=== PATIENT | female | born 1950 | race Caucasian/White ===

== ENCOUNTER → 2016-12-11 | Outpatient (CLI) | payer MEDICARE ==
[~2016-12-11] MED LIST: RT-ALBUTEROL SULF 2.5 MG/3 ML PRE-MIX VIAL IH ONE
== END ==
LOC: RT 13:04
PROVIDERS: ATTEND Nurse Practitioner Family
DX: R06.02 Shortness of breath (principal)
CPT/HCPCS: 94060; 94640; 94726; 94729

== ENCOUNTER 2018-02-12 08:57 | Outpatient (RCR) | payer MEDICARE | END 2018-03-04 13:10 | disposition home or self-care (01) | LOC: ONC 08:57 | PROVIDERS: ATTEND Internal Medicine Hematology & Oncology | DX: D75.1 Secondary polycythemia (principal); Z87.891 Personal history of nicotine dependence; I25.10 Atherosclerotic heart disease of native coronary artery without angina pectoris; I10 Essential (primary) hypertension; R09.02 Hypoxemia; G47.33 Obstructive sleep apnea (adult) (pediatric); R06.83 Snoring; E11.9 Type 2 diabetes mellitus without complications; Z79.899 Other long term (current) drug therapy | CPT/HCPCS: 36415; 81206; 81270; 82668; 99195; 99214 ==

== ENCOUNTER 2018-05-28 13:07 | Outpatient (RCR) | payer MEDICARE ==
[2018-03-04 15:03] LABS: BASOPHILS # (AUTO) 0.2 10^3/uL (0.0-0.1); BASOPHILS % (AUTO) 2 % (0-10); EOSINOPHILS # (AUTO) 0.3 10^3/uL (0.0-0.3); EOSINOPHILS % (AUTO) 2 % (0-10); HEMATOCRIT 51 % (35-52); HEMOGLOBIN 16.4 G/DL (11.5-16.0); LYMPHOCYTES # (AUTO) 1.7 X 10^3 (1.0-4.0); LYMPHOCYTES % (AUTO) 16 % (12-44); MEAN CORPUSCULAR HEMOGLOBIN 24 PG (25-34); MEAN CORPUSCULAR HGB CONC 32 G/DL (32-36); MEAN CORPUSCULAR VOLUME 76 FL (80-99); MEAN PLATELET VOLUME 10.1 FL (7.4-10.4); MONOCYTES # (AUTO) 0.8 X 10^3 (0.0-1.0); MONOCYTES % (AUTO) 7 % (0-12); NEUTROPHILS # (AUTO) 7.9 X 10^3 (1.8-7.8); NEUTROPHILS % (AUTO) 73 % (42-75); PLATELET COUNT 393 10^3/uL (130-400); RED BLOOD COUNT 6.72 10^6/uL (4.35-5.85); RED CELL DISTRIBUTION WIDTH 21.2 % (10.0-14.5); WHITE BLOOD COUNT 10.8 10^3/uL (4.3-11.0)
[2018-03-04 15:29] LABS: BILIRUBIN,TOTAL 0.6 MG/DL (0.1-1.0); CALCIUM 9.4 MG/DL (8.5-10.1); POTASSIUM 4.8 MMOL/L (3.6-5.0); TOTAL PROTEIN 6.3 GM/DL (6.4-8.2)
[2018-04-01 14:44] LABS: BASOPHILS # (AUTO) 0.1 10^3/uL (0.0-0.1); BASOPHILS % (AUTO) 1 % (0-10); EOSINOPHILS # (AUTO) 0.2 10^3/uL (0.0-0.3); EOSINOPHILS % (AUTO) 2 % (0-10); HEMATOCRIT 52 % (35-52); HEMOGLOBIN 15.8 G/DL (11.5-16.0); LYMPHOCYTES # (AUTO) 1.8 X 10^3 (1.0-4.0); LYMPHOCYTES % (AUTO) 19 % (12-44); MEAN CORPUSCULAR HEMOGLOBIN 24 PG (25-34); MEAN CORPUSCULAR HGB CONC 31 G/DL (32-36); MEAN CORPUSCULAR VOLUME 78 FL (80-99); MEAN PLATELET VOLUME 9.9 FL (7.4-10.4); MONOCYTES # (AUTO) 0.5 X 10^3 (0.0-1.0); MONOCYTES % (AUTO) 6 % (0-12); NEUTROPHILS # (AUTO) 6.7 X 10^3 (1.8-7.8); NEUTROPHILS % (AUTO) 72 % (42-75); PLATELET COUNT 333 10^3/uL (130-400); RED BLOOD COUNT 6.63 10^6/uL (4.35-5.85); RED CELL DISTRIBUTION WIDTH 21.3 % (10.0-14.5); WHITE BLOOD COUNT 9.3 10^3/uL (4.3-11.0)
[2018-04-01 15:09] LABS: BILIRUBIN,TOTAL 0.6 MG/DL (0.1-1.0); CALCIUM 9.8 MG/DL (8.5-10.1); CREATININE SERUM 0.96 MG/DL (0.60-1.30); POTASSIUM 5.3 MMOL/L (3.6-5.0); TOTAL PROTEIN 6.3 GM/DL (6.4-8.2)
[2018-04-30 14:09] LABS: BASOPHILS # (AUTO) 0.1 10^3/uL (0.0-0.1); BASOPHILS % (AUTO) 1 % (0-10); EOSINOPHILS # (AUTO) 0.2 10^3/uL (0.0-0.3); EOSINOPHILS % (AUTO) 3 % (0-10); HEMATOCRIT 50 % (35-52); HEMOGLOBIN 15.1 G/DL (11.5-16.0); LYMPHOCYTES # (AUTO) 1.4 X 10^3 (1.0-4.0); LYMPHOCYTES % (AUTO) 18 % (12-44); MEAN CORPUSCULAR HEMOGLOBIN 25 PG (25-34); MEAN CORPUSCULAR HGB CONC 31 G/DL (32-36); MEAN CORPUSCULAR VOLUME 81 FL (80-99); MEAN PLATELET VOLUME 9.6 FL (7.4-10.4); MONOCYTES # (AUTO) 0.5 X 10^3 (0.0-1.0); MONOCYTES % (AUTO) 6 % (0-12); NEUTROPHILS # (AUTO) 5.5 X 10^3 (1.8-7.8); NEUTROPHILS % (AUTO) 72 % (42-75); PLATELET COUNT 161 10^3/uL (130-400); RED BLOOD COUNT 6.11 10^6/uL (4.35-5.85); RED CELL DISTRIBUTION WIDTH 23.7 % (10.0-14.5); WHITE BLOOD COUNT 7.7 10^3/uL (4.3-11.0)
[2018-04-30 14:28] LABS: ALANINE AMINOTRANSFERASE 21 U/L (0-55); ALKALINE PHOSPHATASE 79 U/L (40-136); BILIRUBIN,TOTAL 0.7 MG/DL (0.1-1.0); BUN/CREATININE RATIO 14; CALCIUM 9.6 MG/DL (8.5-10.1); CARBON DIOXIDE 28 MMOL/L (21-32); CHLORIDE 99 MMOL/L (98-107); CREATININE SERUM 0.85 MG/DL (0.60-1.30); GFR ESTIMATED > 60; GLUCOSE 231 MG/DL (70-105); POTASSIUM 4.5 MMOL/L (3.6-5.0); SODIUM 138 MMOL/L (135-145); TOTAL PROTEIN 6.5 GM/DL (6.4-8.2)
[2018-05-28 13:16] LABS: BASOPHILS # (AUTO) 0.1 10^3/uL (0.0-0.1); BASOPHILS % (AUTO) 1 % (0-10); EOSINOPHILS # (AUTO) 0.2 10^3/uL (0.0-0.3); EOSINOPHILS % (AUTO) 2 % (0-10); HEMATOCRIT 43 % (35-52); HEMOGLOBIN 13.2 G/DL (11.5-16.0); LYMPHOCYTES # (AUTO) 1.7 X 10^3 (1.0-4.0); LYMPHOCYTES % (AUTO) 20 % (12-44); MEAN CORPUSCULAR HEMOGLOBIN 26 PG (25-34); MEAN CORPUSCULAR HGB CONC 31 G/DL (32-36); MEAN CORPUSCULAR VOLUME 85 FL (80-99); MEAN PLATELET VOLUME 10.1 FL (7.4-10.4); MONOCYTES # (AUTO) 0.3 X 10^3 (0.0-1.0); MONOCYTES % (AUTO) 4 % (0-12); NEUTROPHILS # (AUTO) 6.1 X 10^3 (1.8-7.8); NEUTROPHILS % (AUTO) 73 % (42-75); PLATELET COUNT 422 10^3/uL (130-400); RED BLOOD COUNT 5.01 10^6/uL (4.35-5.85); RED CELL DISTRIBUTION WIDTH 22.5 % (10.0-14.5); WHITE BLOOD COUNT 8.4 10^3/uL (4.3-11.0)
[2018-05-28 13:40] LABS: ALBUMIN 3.9 GM/DL (3.2-4.5); BILIRUBIN,TOTAL 0.6 MG/DL (0.1-1.0); CALCIUM 9.3 MG/DL (8.5-10.1); CREATININE SERUM 0.97 MG/DL (0.60-1.30); POTASSIUM 4.5 MMOL/L (3.6-5.0); TOTAL PROTEIN 6.1 GM/DL (6.4-8.2)
== END 2018-06-02 | disposition home or self-care (01) ==
LOC: ONC 13:07
PROVIDERS: ATTEND Internal Medicine Hematology & Oncology
DX: D75.1 Secondary polycythemia (principal); I25.10 Atherosclerotic heart disease of native coronary artery without angina pectoris; I10 Essential (primary) hypertension; E11.9 Type 2 diabetes mellitus without complications; R09.02 Hypoxemia; G47.33 Obstructive sleep apnea (adult) (pediatric); R06.83 Snoring; Z87.891 Personal history of nicotine dependence; Z79.899 Other long term (current) drug therapy
CPT/HCPCS: 36415; 80053; 85025; 99195; 99213

== ENCOUNTER → 2018-09-02 | Outpatient (CLI) | payer MEDICARE ==
[~2018-09-02] VITALS: Ht 152.4 cm; Wt 85.7 kg
[~2018-09-02] MED LIST changes: +REGADENOSON 0.4 MG/5 ML SYR (LEXISCAN) IV ONE; -RT-ALBUTEROL SULF 2.5 MG/3 ML PRE-MIX VIAL IH ONE
[2018-09-02] MEDS: CATHETER FLUSH 10 ML SYR IV PRN ×2 (07:43→09:20)
[2018-09-02 09:18] VITALS: BP 132/97
--- NOTE | 2018-09-02 15:20 | STRESS TEST ---
DATE OF SERVICE: 09/02/2018 LEXISCAN MYOVIEW STRESS TEST REPORT REFERRING PHYSICIAN: Dr. Netta Mcmillan. Baseline heart rate is 84 and baseline blood pressure is 132/97. Baseline EKG is sinus rhythm with no ischemic changes. In summary, the patient was injected with 10.39 mCi of technetium-99 Myoview and the resting images were obtained. Then, the patient received 0.4 mg of Lexiscan followed by 29.1 mCi of technetium-99 Myoview. Throughout the test, there were no EKG changes. The resting and stress images were reviewed and compared in the short axis, horizontal long axis and vertical long axis views. Review of the images had extracardiac attenuation due to the fact that the patient was unable to keep the left arm up, which affected the quality of the imaging. There is a fixed defect involving the true apex, anteroapical and inferoapical segment with small area of eric-infarct ischemia. SSS is 21. SDS is 7. TID value is 1.08. On the gated images, the left ventricle appeared to be in normal size with normal contractility. Calculated ejection fraction is 55%. CONCLUSION: 1. The patient tolerated the Lexiscan well. 2. Extracardiac attenuation affecting the quality of the images. There is a fixed defect involving the apex, anteroapical and inferoapical segment. There is an area of ischemia in the mid anterior wall and mid inferior wall. 3. Normal left ventricular size with hypokinesia at the apex. Calculated ejection fraction is 55%. Job ID: [id number] DocumentID: [id number] Dictated Date: 09/02/2018 15:10:59 Organisational Psychologist Date: 09/02/2018 15:20:00 Dictated By: MAXWELL ECHEVERRIA MD
== END ==
LOC: RAD 07:19
PROVIDERS: ATTEND Internal Medicine Cardiovascular Disease
DX: I25.10 Atherosclerotic heart disease of native coronary artery without angina pectoris (principal); I10 Essential (primary) hypertension; G47.33 Obstructive sleep apnea (adult) (pediatric); D45 Polycythemia vera; E66.01 Morbid (severe) obesity due to excess calories; Z68.36 Body mass index [BMI] 36.0-36.9, adult
CPT/HCPCS: 78452; 93017

== ENCOUNTER 2018-09-16 08:38 | Outpatient (RCR) | payer MEDICARE ==
[2018-06-25 10:17] LABS: BASOPHILS # (AUTO) 0.1 10^3/uL (0.0-0.1); BASOPHILS % (AUTO) 1 % (0-10); EOSINOPHILS # (AUTO) 0.2 10^3/uL (0.0-0.3); EOSINOPHILS % (AUTO) 2 % (0-10); HEMATOCRIT 45 % (35-52); HEMOGLOBIN 13.5 G/DL (11.5-16.0); LYMPHOCYTES # (AUTO) 1.5 X 10^3 (1.0-4.0); LYMPHOCYTES % (AUTO) 16 % (12-44); MEAN CORPUSCULAR HEMOGLOBIN 24 PG (25-34); MEAN CORPUSCULAR HGB CONC 30 G/DL (32-36); MEAN CORPUSCULAR VOLUME 79 FL (80-99); MEAN PLATELET VOLUME 9.9 FL (7.4-10.4); MONOCYTES # (AUTO) 0.6 X 10^3 (0.0-1.0); MONOCYTES % (AUTO) 6 % (0-12); NEUTROPHILS # (AUTO) 7.1 X 10^3 (1.8-7.8); NEUTROPHILS % (AUTO) 75 % (42-75); PLATELET COUNT 461 10^3/uL (130-400); RED CELL DISTRIBUTION WIDTH 22.1 % (10.0-14.5); WHITE BLOOD COUNT 9.5 10^3/uL (4.3-11.0)
[2018-06-25 10:38] LABS: ALANINE AMINOTRANSFERASE 20 U/L (0-55); ALBUMIN 3.8 GM/DL (3.2-4.5); ALKALINE PHOSPHATASE 68 U/L (40-136); BILIRUBIN,TOTAL 0.7 MG/DL (0.1-1.0); BUN/CREATININE RATIO 16; CALCIUM 9.7 MG/DL (8.5-10.1); CARBON DIOXIDE 27 MMOL/L (21-32); CHLORIDE 107 MMOL/L (98-107); GFR ESTIMATED > 60; GLUCOSE 219 MG/DL (70-105); SODIUM 146 MMOL/L (135-145); TOTAL PROTEIN 6.2 GM/DL (6.4-8.2)
[2018-07-23 09:34] LABS: BASOPHILS # (AUTO) 0.1 10^3/uL (0.0-0.1); BASOPHILS % (AUTO) 1 % (0-10); EOSINOPHILS # (AUTO) 0.3 10^3/uL (0.0-0.3); EOSINOPHILS % (AUTO) 3 % (0-10); HEMATOCRIT 48 % (35-52); HEMOGLOBIN 13.8 G/DL (11.5-16.0); LYMPHOCYTES # (AUTO) 1.7 X 10^3 (1.0-4.0); LYMPHOCYTES % (AUTO) 16 % (12-44); MEAN CORPUSCULAR HEMOGLOBIN 21 PG (25-34); MEAN CORPUSCULAR HGB CONC 29 G/DL (32-36); MEAN CORPUSCULAR VOLUME 72 FL (80-99); MONOCYTES # (AUTO) 0.7 X 10^3 (0.0-1.0); MONOCYTES % (AUTO) 6 % (0-12); NEUTROPHILS # (AUTO) 7.8 X 10^3 (1.8-7.8); NEUTROPHILS % (AUTO) 74 % (42-75); PLATELET COUNT 520 10^3/uL (130-400); RED CELL DISTRIBUTION WIDTH 23.4 % (10.0-14.5); WHITE BLOOD COUNT 10.6 10^3/uL (4.3-11.0)
[2018-08-19 10:10] LABS: BASOPHILS # (AUTO) 0.2 10^3/uL (0.0-0.1); BASOPHILS % (AUTO) 1 % (0-10); EOSINOPHILS # (AUTO) 0.3 10^3/uL (0.0-0.3); EOSINOPHILS % (AUTO) 3 % (0-10); HEMATOCRIT 46 % (35-52); HEMOGLOBIN 13.4 G/DL (11.5-16.0); LYMPHOCYTES # (AUTO) 1.6 X 10^3 (1.0-4.0); LYMPHOCYTES % (AUTO) 14 % (12-44); MEAN CORPUSCULAR HEMOGLOBIN 20 PG (25-34); MEAN CORPUSCULAR HGB CONC 30 G/DL (32-36); MEAN CORPUSCULAR VOLUME 68 FL (80-99); MEAN PLATELET VOLUME 10.1 FL (7.4-10.4); MONOCYTES # (AUTO) 0.5 X 10^3 (0.0-1.0); MONOCYTES % (AUTO) 5 % (0-12); NEUTROPHILS % (AUTO) 77 % (42-75); PLATELET COUNT 543 10^3/uL (130-400); RED CELL DISTRIBUTION WIDTH 22.5 % (10.0-14.5); WHITE BLOOD COUNT 11.6 10^3/uL (4.3-11.0)
[2018-08-19 10:25] LABS: ALANINE AMINOTRANSFERASE 17 U/L (0-55); ALKALINE PHOSPHATASE 94 U/L (40-136); BILIRUBIN,TOTAL 0.7 MG/DL (0.1-1.0); BUN/CREATININE RATIO 15; CALCIUM 10.3 MG/DL (8.5-10.1); CARBON DIOXIDE 31 MMOL/L (21-32); CHLORIDE 104 MMOL/L (98-107); CREATININE SERUM 0.92 MG/DL (0.60-1.30); GFR ESTIMATED > 60; GLUCOSE 320 MG/DL (70-105); POTASSIUM 5.1 MMOL/L (3.6-5.0); SODIUM 142 MMOL/L (135-145); TOTAL PROTEIN 6.3 GM/DL (6.4-8.2)
[2018-09-16 09:07] LABS: BASOPHILS # (AUTO) 0.2 10^3/uL (0.0-0.1); BASOPHILS % (AUTO) 1 % (0-10); EOSINOPHILS # (AUTO) 0.3 10^3/uL (0.0-0.3); EOSINOPHILS % (AUTO) 2 % (0-10); HEMATOCRIT 45 % (35-52); HEMOGLOBIN 12.7 G/DL (11.5-16.0); LYMPHOCYTES # (AUTO) 1.7 X 10^3 (1.0-4.0); LYMPHOCYTES % (AUTO) 14 % (12-44); MEAN CORPUSCULAR HEMOGLOBIN 18 PG (25-34); MEAN CORPUSCULAR HGB CONC 28 G/DL (32-36); MEAN CORPUSCULAR VOLUME 64 FL (80-99); MEAN PLATELET VOLUME 9.9 FL (7.4-10.4); MONOCYTES # (AUTO) 0.7 X 10^3 (0.0-1.0); MONOCYTES % (AUTO) 6 % (0-12); NEUTROPHILS # (AUTO) 9.6 X 10^3 (1.8-7.8); NEUTROPHILS % (AUTO) 77 % (42-75); PLATELET COUNT 604 10^3/uL (130-400); RED CELL DISTRIBUTION WIDTH 22.3 % (10.0-14.5); WHITE BLOOD COUNT 12.5 10^3/uL (4.3-11.0)
[2018-09-23] MEDS ORDERED: ATOR40TA70 PO ×2 (07:58)
[2018-09-23] MEDS ORDERED: GABA-488 PO ×2 (07:58)
[2018-09-23] MEDS ORDERED: ACET325T49 PO ×2 (07:58)
[2018-09-23] MEDS ORDERED: LORA10TA76 PO ×2 (07:58)
[2018-09-23] MEDS ORDERED: ROPI0.5T PO ×2 (07:58)
[2018-09-23] MEDS ORDERED: [UNRECOGNIZED DRUG - OTHER] PO ×2 (07:58)
[2018-09-23] MEDS ORDERED: MULT-178 PO ×2 (07:58)
[2018-09-23] MEDS ORDERED: LOSA1TAB3 PO ×2 (07:58)
[2018-09-23] MEDS ORDERED: OMG1KC PO ×2 (07:58)
[2018-09-23] MEDS ORDERED: METF-397 PO ×4 (07:58)
[2018-09-23] MEDS ORDERED: ASPI-586 PO ×2 (07:58)
[2018-09-23] MEDS ORDERED: INSU100I14 SQ ×2 (07:58)
[2018-09-23] MEDS ORDERED: ISOS120T9 PO ×2 (07:58)
[2018-09-23] MEDS ORDERED: INSU100V6 SQ ×2 (07:58)
[2018-09-24] MEDS ORDERED: TICA90TA PO ×2 (07:38)
== END 2018-09-23 | disposition home or self-care (01) ==
LOC: ONC 08:38
PROVIDERS: ATTEND Internal Medicine Hematology & Oncology
DX: D75.1 Secondary polycythemia (principal); Z87.891 Personal history of nicotine dependence; I25.10 Atherosclerotic heart disease of native coronary artery without angina pectoris; I10 Essential (primary) hypertension; R09.02 Hypoxemia; G47.33 Obstructive sleep apnea (adult) (pediatric); R06.83 Snoring; E11.9 Type 2 diabetes mellitus without complications; Z79.899 Other long term (current) drug therapy
CPT/HCPCS: 36415; 80053; 85025; 99195; 99213

== ENCOUNTER 2018-09-23 06:54 | Day surgery (SDC) | payer MEDICARE ==
[~2018-09-23] VITALS: Ht 152.4 cm; Wt 89.8 kg
[2018-09-23] VITALS (23 sets, daily range): BP systolic 119–185; BP diastolic 50–124
[2018-09-23] MEDS ORDERED: HEParin (CATH LAB) 2,000 ML IV ONE (06:58)
[2018-09-23] MEDS ORDERED: LIDOCAINE 1% INJ 20 ML 20 ML VIAL ONE (06:58)
[2018-09-23] MEDS ORDERED: NS IV 1000 ML 1,000 ML ONE (06:58)
--- OUTSIDE RECORDS SUMMARY | 2018-09-23 06:59 | XMS REPORT | Continuity of Care Document ---
Author Organization Unknown Address Unknown Allergies Active Description Code Type Severity Reaction Onset Reported/Identified Relationship to Patient Clinical Status Yes ADHESIVE TAPE ADHESIVE TAPE MODERATE Yes MORPHINE MORPHINE SEVERE Yes ADHESIVE TAPE MODERATE DERMATOLOGICAL - HIV Yes MORPHINE SEVERE DERMATOLOGICAL - [place] Yes No Known Drug Allergies [id number] Drug Allergy Unknown N/A 12/11/2016 Medications Medication Packaging Start Date Stop Date Route Dosage Sig TETANUS,DIPTH,PERT ADULT INJ 0 (ADACEL SYRINGE) ml 10/19/2016 10/19/2016 ONCE&1938 ASA 81MG CHEWABLE TAB 81 MG (BABY ASPIRIN) MG 10/19/2016 10/26/2016 BID&0800,1999 GABAPENTIN CAP 300 MG (NEURONTIN) MG 10/19/2016 10/26/2016 BID&0800,1999 METFORMIN TAB 500 MG (GLUCOPHAGE) MG 10/19/2016 10/26/2016 BID&0800,1999 CARVEDILOL TAB 12.5 MG (COREG) MG 10/19/2016 10/26/2016 BID&0800,2000 MELATONIN TAB 3 MG (MELATONIN) MG 10/19/2016 10/25/2016 QHS&2100 ISOSORBIDE MONONITRATE TAB 60 MG (IMDUR) MG 10/20/2016 10/26/2016 Daily&0900 LORATADINE TAB 10 MG (CLARITIN) MG 10/20/2016 10/26/2016 Daily&0900 GLIMEPIRIDE TAB 2 MG (AMARYL) MG 10/26/2016 Daily&0900 CITALOPRAM TAB 20 MG (CELEXA) MG 10/26/2016 Daily&0900 MultiVits (Thera M Plus) (rwaczwuc-jkdr-kbxjsty) oral tablet TAB 10/20/2016 11/18/2016 Daily&0900 CALCIUM 600MG W VIT D TAB 600 MG (OSCAL/W VIT D) MG 10/20/2016 10/26/2016 Daily&0900 FENTANYL INJ 100 MCG/2CC VIAL MCG 02/05/2017 02/05/2017 ONCE&0723 NORMAL SALINE 1000CC IV BAG INJ 0.9 % (NS 1000CC IV BAG) ml 02/05/2017 02/06/2017 CONTINUOUSEVERY 0 Hour INSULIN ASPART PEN INJ 100 UNITS/CC (NOVOLOG FLEXPEN) 02/08/2017 03/09/2017 ACHS&0630,1130,1630,2100 ASA 81MG CHEWABLE TAB 81 MG (BABY ASPIRIN) MG 02/08/2017 02/14/2017 BID&0800,1999 GABAPENTIN CAP 300 MG (NEURONTIN) MG 02/08/2017 02/14/2017 TID&0800,1400,1999 METFORMIN TAB 500 MG (GLUCOPHAGE) MG 02/08/2017 02/14/2017 TID&0800,1399,1999 CARVEDILOL TAB 12.5 MG (COREG) MG 02/08/2017 02/14/2017 BID&0800,1999 ISOSORBIDE MONONITRATE TAB 60 MG (IMDUR) MG 02/08/2017 02/14/2017 Daily&0900 LORATADINE TAB 10 MG (CLARITIN) MG 02/08/2017 02/14/2017 Daily&0900 GLIMEPIRIDE TAB 2 MG (AMARYL) MG 02/14/2017 Daily&0900 CITALOPRAM TAB 20 MG (CELEXA) MG 02/14/2017 Daily&0900 MultiVits (Thera M Plus) (gnxtxwmx-jqvx-lbmcwqv) oral tablet TAB 02/08/2017 03/09/2017 Daily&0900 CALCIUM 600MG W VIT D TAB 600 MG (OSCAL/W VIT D) MG 02/08/2017 02/14/2017 Daily&0900 CEFTRIAXONE PREMIX IV BAG IV 1 GM/50CC (ROCEPHIN PREMIX IV BAG) GM 02/08/2017 02/14/2017 Daily&0900 MELATONIN TAB 3 MG (MELATONIN) MG 02/08/2017 02/14/2017 QHS&2100 ROPINIROLE TAB 0.5 MG TAB (REQUIP) MG 02/08/2017 02/14/2017 QHS&2100 NORMAL SALINE 1000CC IV BAG INJ 0.9 % (NS 1000CC IV BAG) ml 05/28/2017 06/12/2017 CONTINUOUSEVERY 0 Hour INSULIN ASPART PEN INJ 100 UNITS/CC (NOVOLOG FLEXPEN) Dose(s) 05/28/2017 05/28/2017 ONCE&1630 ASA 81MG CHEWABLE TAB 81 MG (BABY ASPIRIN) Dose(s) 05/28/2017 06/04/2017 BID&0800,2000 GABAPENTIN CAP 300 MG (NEURONTIN) Dose(s) 05/28/2017 06/04/2017 TID&0800,1400,2000 METFORMIN TAB 500 MG (GLUCOPHAGE) Dose(s) 05/28/2017 06/04/2017 TID&0800,1400,2000 CARVEDILOL TAB 12.5 MG (COREG) Dose(s) 05/28/2017 06/04/2017 BID&0800,2000 METFORMIN TAB 500 MG (GLUCOPHAGE) MG 05/28/2017 06/03/2017 Daily&2100 MELATONIN TAB 3 MG (MELATONIN) Dose(s) 05/28/2017 06/03/2017 QHS&2100 ROPINIROLE TAB 0.5 MG TAB (REQUIP) Dose(s) 05/28/2017 06/03/2017 QHS&2100 INSULIN ASPART PEN INJ 100 UNITS/CC (NOVOLOG FLEXPEN) Dose(s) 05/29/2017 06/27/2017 AC&0630,1130,1630 ISOSORBIDE MONONITRATE TAB 60 MG (IMDUR) Dose( s) 05/29/2017 06/04/2017 Daily&0900 LORATADINE TAB 10 MG (CLARITIN) Dose(s) 05/29/2017 06/04/2017 Daily&0900 LOSARTAN TAB 25 MG (COZAAR) MG 03/201806/04/2017 Daily&0900 METFORMIN TAB 500 MG (GLUCOPHAGE) Dose(s) 05/29/2017 06/04/2017 Daily&0900 GLIMEPIRIDE TAB 2 MG (AMARYL) Dose(s) 05/29/2017 06/04/2017 Daily&0900 CITALOPRAM TAB 20 MG (CELEXA) Dose(s) 05/29/2017 06/04/2017 Daily&0900 MultiVits (Thera M Plus) (qizwydzi-pbty-zocuamc) oral tablet Dose(s) 05/29/2017 06/27/2017 Daily&0900 CALCIUM 600MG W VIT D TAB 600 MG (OSCAL/W VIT D) Dose(s) 05/29/2017 06/04/2017 Daily&0900 METFORMIN TAB 500 MG (GLUCOPHAGE) MG 05/29/2017 06/04/2017 Daily&1200 GLIMEPIRIDE TAB 2 MG (AMARYL) MG 06/04/2017 QPM&1700 GLUCAGON VIAL INJ 1 MG (GLUCAGEN VIAL) MG 10/25/2017 10/25/2017 ONCE&1635 NORMAL SALINE 1000CC IV BAG INJ 0.9 % (NS 1000CC IV BAG) ml 10/25/2017 11/09/2017 CONTINUOUSEVERY 0 Hour NORMAL SALINE 500CC IV BAG INJ 0.9 % (NS 500CC IV BAG) ml 12/10/2017 12/10/2017 ONCE&1205 NORMAL SALINE 1000CC IV BAG INJ 0.9 % (NS 1000CC IV BAG) ml 12/10/2017 12/25/2017 CONTINUOUSEVERY 0 Hour METFORMIN TAB 500 MG (GLUCOPHAGE) Dose(s) 12/10/2017 12/17/2017 TID&0800,1400,2000 TRAMADOL TAB 50 MG (ULTRAM) Dose(s) 12/10/2017 12/20/2017 Q8H&0600,1400,2200 GABAPENTIN CAP 300 MG (NEURONTIN) Dose(s) 12/10/2017 12/17/2017 TID&0800,1400,2000 INSULIN ASPART PEN INJ 100 UNITS/CC (NOVOLOG FLEXPEN) 12/10/2017 12/10/2017 ONCE&1630 CARVEDILOL TAB 12.5 MG (COREG) Dose(s) 12/10/2017 12/17/2017 BID&0800,2000 ASPIRIN ENTERIC COATED TAB 81 MG (BABY ASPIRIN EC) Dose(s) 12/10/2017 12/17/2017 BID&0800,2000 ROPINIROLE TAB 1 MG (REQUIP) Dose(s) 12/10/2017 12/17/2017 BID&0800,2000 GLIMEPIRIDE TAB 2 MG (AMARYL) Dose(s) 12/10/2017 12/17/2017 BID&0800,2000 CITALOPRAM TAB 20 MG (CELEXA) Dose(s) 12/10/2017 12/16/2017 QPM&2000 SMZ/TMP DS TAB (SEPTRA DS) (Bactrim DS) Dose( s) 12/10/2017 12/17/2017 BID&0800,2000 MELATONIN TAB 3 MG (MELATONIN) Dose(s) 12/10/2017 12/16/2017 QHS&2100 INSULIN ASPART PEN INJ 100 UNITS/CC (NOVOLOG FLEXPEN) 12/10/2017 01/09/2018 ACHS&0630,1130,1630,2100 Docusate sodium 100mg oral capsule (COLACE) Dose(s) 12/11/2017 01/10/2018 PRN BID ISOSORBIDE MONONITRATE TAB 60 MG (IMDUR) Dose( s) 12/11/2017 12/17/2017 QAM&0800 METFORMIN TAB 500 MG (GLUCOPHAGE) Dose(s) 12/11/2017 12/17/2017 BID&0800,1200 TRAMADOL/APAP 37.5/325 TAB 0 (ULTRACET) Dose( s) 12/11/2017 12/21/2017 PRN TID NORMAL SALINE 1000CC IV BAG INJ 0.9 % (NS 1000CC IV BAG) ml 12/11/2017 12/26/2017 CONTINUOUSEVERY 0 Hour LORATADINE TAB 10 MG (CLARITIN) Dose(s) 12/11/2017 12/17/2017 Daily&0900 ISOSORBIDE MONONITRATE TAB 20 MG (ISMO) Dose(s ) 12/11/2017 12/17/2017 Daily&0900 LOSARTAN TAB 100 MG (COZAAR) Dose(s) 12/11/2017 12/17/2017 Daily&0900 FERROUS SULFATE TAB 325 MG (FEOSOL) Dose(s) 12/11/2017 12/17/2017 Daily&0900 MultiVits (Thera M Plus) (acrtpzdo-osza-ygwzwgf) oral tablet Dose(s) 12/11/2017 01/09/2018 Daily&0900 CALCIUM 600MG W VIT D TAB 600 MG (OSCAL/W VIT D) Dose(s) 12/11/2017 12/17/2017 Daily&0900 MILK OF GLEN LIQ ml 12/11/2017 01/10/2018 PRN Daily POLY/BACI/NEOM OINT OINT (NEOSPORIN) alonso 12/11/2017 12/18/2017 PRN TID POLY/BACI/NEOM OINT OINT (NEOSPORIN) alonso 12/11/2017 12/18/2017 BID&0800,2000 ROPINIROLE TAB 1 MG (REQUIP) Dose(s) 12/11/2017 12/17/2017 QHS&2100 METFORMIN TAB 500 MG (GLUCOPHAGE) Dose(s) 12/11/2017 12/17/2017 QHS&2100 MILK OF GLEN OKEEFE ml 12/12/2017 01/11/2018 PRN Daily NORMAL SALINE 1000CC IV BAG INJ 0.9 % (NS 1000CC IV BAG) ml 05/06/2018 05/21/2018 CONTINUOUSEVERY 0 Hour INSULIN ASPART PEN INJ 100 UNITS/CC (NOVOLOG FLEXPEN) Dose(s) 05/06/2018 05/12/2018 AC&0630,1130,1630 ACETAMINOPHEN ORAL TABLET 325mg(Tylenol) MG 05/06/2018 06/05/2018 PRN EVERY 4 Hour ACETAMINOPHEN ORAL TABLET 325mg(Tylenol) MG 05/06/2018 06/05/2018 PRN EVERY 6 Hour CEPHALEXIN CAP 250 MG (KEFLEX) Dose(s) 05/06/2018 05/15/2018 TID&0800,1400,2000 ISOSORBIDE MONONITRATE TAB 60 MG (IMDUR) Dose( s) 05/06/2018 05/12/2018 QAM&0800 CARVEDILOL TAB 25 MG (COREG) Dose(s) 05/06/2018 05/12/2018 BID&0800,2000 METFORMIN TAB 500 MG (GLUCOPHAGE) Dose(s) 05/06/2018 05/12/2018 BID&0800,2000 CARVEDILOL TAB 12.5 MG (COREG) Dose(s) 05/06/2018 05/12/2018 BID&0800,2000 GLIMEPIRIDE TAB 2 MG (AMARYL) Dose(s) 05/06/2018 05/12/2018 BID&0800,2000 TRAMADOL/APAP 37.5/325 TAB 0 (ULTRACET) Dose( s) 05/06/2018 05/16/2018 PRN TID GABAPENTIN CAP 300 MG (NEURONTIN) Dose(s) 05/06/2018 05/12/2018 TID&0800,1400,2000 LORATADINE TAB 10 MG (CLARITIN) Dose(s) 05/06/2018 05/12/2018 Daily&0900 ASA 81MG CHEWABLE TAB 81 MG (BABY ASPIRIN) Dose(s) 05/06/2018 05/12/2018 Daily&0900 METFORMIN TAB 500 MG (GLUCOPHAGE) Dose(s) 05/06/2018 05/12/2018 Daily&0900 HYDROXYUREA CAP 500 MG (HYDREA) Dose(s) 05/06/2018 05/15/2018 Daily&0900 LOSARTAN TAB 25 MG (COZAAR) Dose(s) 05/06/2018 05/12/2018 Daily&0900 MultiVits (Thera M Plus) (lufbuepf-ffno-tpzxwvw) oral tablet Dose(s) 05/06/2018 06/04/2018 Daily&0900 ACETAMINOPHEN SUPPOS SUP 650 MG (TYLENOL) MG 05/06/2018 05/13/2018 PRN Q4H METFORMIN TAB 500 MG (GLUCOPHAGE) Dose(s) 05/06/2018 05/12/2018 Daily&1200 HYDROXYUREA CAP 500 MG (HYDREA) MG 05/06/2018 05/06/2018 ONCE&1200 METFORMIN TAB 500 MG (GLUCOPHAGE) Dose(s) 05/06/2018 05/12/2018 QPM&2000 CITALOPRAM TAB 20 MG (CELEXA) Dose(s) 05/06/2018 05/12/2018 QPM&2000 CALCIUM 600MG W VIT D TAB 600 MG (OSCAL/W VIT D) Dose(s) 05/06/2018 05/12/2018 QPM&2000 ROPINIROLE TAB 1 MG (REQUIP) Dose(s) 05/06/2018 05/12/2018 QHS&2100 ROPINIROLE TAB 0.5 MG TAB (REQUIP) Dose(s) 05/06/2018 05/12/2018 QHS&2100 MELATONIN TAB 3 MG (MELATONIN) Dose(s) 05/06/2018 05/12/2018 QHS&2100 INSULIN ASPART PEN INJ 100 UNITS/CC (NOVOLOG FLEXPEN) 05/06/2018 06/05/2018 ACHS&0630,1130,1630,2100 HYDROXYUREA CAP 500 MG (HYDREA) MG 05/07/2018 05/16/2018 Daily&0900 POTASSIUM CL 40MEQ VIAL INJ 40 MEQ/20CC (KCL VIAL) MEQ 05/07/2018 05/07/2018 ONCE&1044 NORMAL SALINE 250CC IV BAG INJ 0.9 % (NS 250CC IV BAG) ml 05/07/2018 05/07/2018 ONCE&1044 MAGNESIUM OXIDE TAB 400 MG (MAG-OX) MG 05/07/2018 05/07/2018 ONCE&1115 HYDROXYUREA CAP 500 MG (HYDREA) MG 05/07/2018 05/09/2018 Daily&1200 CALMOSEPTINE OINT TUBE (RISAMINE OINT) alonso 05/07/2018 05/14/2018 PRN QID CEFTRIAXONE PREMIX IV BAG IV 1 GM/50CC (ROCEPHIN PREMIX IV BAG) GM 05/07/2018 05/07/2018 ONCE&1743 GABAPENTIN CAP 300 MG (NEURONTIN) MG 05/07/2018 05/14/2018 TID&0800,1400,2000 NORMAL SALINE 1000CC IV BAG INJ 0.9 % (NS 1000CC IV BAG) ml 05/07/2018 05/07/2018 ONCE&2127 POTASSIUM CHLORIDE TAB 20 MEQ (K-DUR) MEQ 05/08/2018 06/06/2018 BID&0800,2000 CEFTRIAXONE PREMIX IV BAG IV 1 GM/50CC (ROCEPHIN PREMIX IV BAG) GM 05/08/2018 05/14/2018 Daily&1500 CEFTRIAXONE PREMIX IV BAG IV 1 GM/50CC (ROCEPHIN PREMIX IV BAG) GM 05/08/2018 05/14/2018 Daily&1600 CEFTRIAXONE PREMIX IV BAG IV 1 GM/50CC (ROCEPHIN PREMIX IV BAG) GM 05/08/2018 05/14/2018 Daily&1500 NORMAL SALINE 1000CC IV BAG INJ 0.9 % (NS 1000CC IV BAG) ml 05/30/2018 06/14/2018 CONTINUOUSEVERY 0 Hour INSULIN ASPART PEN INJ 100 UNITS/CC (NOVOLOG FLEXPEN) UNIT 05/30/2018 06/28/2018 ACHS&0630,1130,1630,2100 ACETAMINOPHEN ORAL TABLET 325mg(Tylenol) MG 05/30/2018 06/29/2018 PRN EVERY 4 Hour CARVEDILOL TAB 12.5 MG (COREG) Dose(s) 05/30/2018 06/05/2018 BID&0800,2000 GABAPENTIN CAP 300 MG (NEURONTIN) Dose(s) 05/30/2018 06/05/2018 TID&0800,1400,2000 LORATADINE TAB 10 MG (CLARITIN) Dose(s) 05/30/2018 06/05/2018 Daily&0900 MultiVits (Thera M Plus) (bmvkbiyc-zftn-qhqokxm) oral tablet Dose(s) 05/30/2018 06/28/2018 Daily&0900 CALCIUM 600MG W VIT D TAB 600 MG (OSCAL/W VIT D) Dose(s) 05/30/2018 06/05/2018 Daily&0900 INSULIN ASPART PEN INJ 100 UNITS/CC (NOVOLOG FLEXPEN) 05/30/2018 05/30/2018 ONCE&0931 INSULIN ASPART PEN INJ 100 UNITS/CC (NOVOLOG FLEXPEN) Dose(s) 05/30/2018 05/30/2018 ONCE&0932 NORMAL SALINE 1000CC IV BAG INJ 0.9 % (NS 1000CC IV BAG) ml 05/30/2018 06/14/2018 CONTINUOUSEVERY 0 Hour HYDROXYUREA CAP 500 MG (HYDREA) MG 05/30/2018 05/30/2018 ONCE&0900 METFORMIN TAB 500 MG (GLUCOPHAGE) MG 05/30/2018 05/30/2018 ONCE&0900 INSULIN ASPART PEN INJ 100 UNITS/CC (NOVOLOG FLEXPEN) Dose(s) 05/30/2018 06/06/2018 ACHS&0630,1130,1630,2100 METFORMIN TAB 500 MG (GLUCOPHAGE) Dose(s) 05/30/2018 06/06/2018 BID&0800,1200 CEFTRIAXONE PREMIX IV BAG IV 1 GM/50CC (ROCEPHIN PREMIX IV BAG) GM 05/30/2018 06/05/2018 Daily&1400 CALMOSEPTINE OINT TUBE (RISAMINE OINT) alonso 05/30/2018 06/05/2018 BID&0800,2000 ROPINIROLE TAB 0.5 MG TAB (REQUIP) MG 05/30/2018 06/05/2018 QHS&2100 METFORMIN TAB 500 MG (GLUCOPHAGE) Dose(s) 05/30/2018 06/05/2018 QHS&2100 ASPIRIN ENTERIC COATED TAB 81 MG (BABY ASPIRIN EC) Dose(s) 05/31/2018 06/06/2018 Daily&0900 ISOSORBIDE MONONITRATE TAB 60 MG (IMDUR) Dose( s) 05/31/2018 06/06/2018 Daily&0900 ENOXAPARIN SYRINGE INJ 40 MG (LOVENOX SYRINGE) MG 06/01/2018 06/11/2018 BID&0800,2000 SIMVASTATIN TAB 80 MG (ZOCOR) MG 06/07/2018 QPM&2000 INSULIN DETEMIR PEN INJ 100 UNITS/CC (LEVEMIR FLEXPEN) UNITS 06/01/2018 06/30/2018 QHS&2100 LEVALBUTEROL LIQ 1.25 MG/3ML (XOPENEX) MG 06/02/2018 06/02/2018 ONCE&0133 ENOXAPARIN SYRINGE INJ 40 MG (LOVENOX SYRINGE) MG 06/02/2018 06/02/2018 ONCE&0133 FUROSEMIDE TAB 20 MG (LASIX) MG 06/02/2018 ONCE&0133 FUROSEMIDE VIAL INJ 20 MG (LASIX VIAL) MG 06/02/2018 06/02/2018 ONCE&0138 ENOXAPARIN SYRINGE INJ 40 MG (LOVENOX SYRINGE) MG 06/02/2018 06/11/2018 BID&0800,2000 HYDROCHLOROTHIAZIDE CAP 12.5 MG (HYDRODIURIL) MG 06/02/2018 06/08/2018 Daily&0900 LOSARTAN TAB 25 MG (COZAAR) MG 06/08/2018 Daily&0900 LEVALBUTEROL LIQ 1.25 MG/3ML (XOPENEX) MG 06/02/2018 06/02/2018 ONCE&0956 NORMAL SALINE 250CC IV BAG INJ 0.9 % (NS 250CC IV BAG) ml 06/16/2018 06/16/2018 ONCE&1538 Problems Date Dx Coded Attending Type Code Diagnosis Diagnosed By 04/17/1309 RENNY BLACKWELL MD, Ot D75.1 SECONDARY POLYCYTHEMIA 04/17/1309 RENNY BLACKWELL MD, Ot E11.9 TYPE 2 DIABETES MELLITUS WITHOUT COMPLIC 04/17/1309 RENNY BLACKWELL MD, Ot G47.33 OBSTRUCTIVE SLEEP APNEA (ADULT) (PEDIATR 04/17/1309 RENNY BLACKWELL MD, Ot I10 ESSENTIAL (PRIMARY) HYPERTENSION 04/17/1309 RENNY BLACKWELL MD, Ot I25.10 ATHSCL HEART DISEASE OF [place] CORONARY 04/17/1309 RENNY BLACKWELL MD, Ot R06.83 SNORING 04/17/1309 RENNY BLACKWELL MD, Ot R09.02 HYPOXEMIA 04/17/1309 RENNY BLACKWELL MD, Ot Z79.899 OTHER UTILITY OPERATOR YARN (CURRENT) DRUG THERAPY 04/17/1309 RENNY BLACKWELL MD, Ot Z87.891 PERSONAL HISTORY OF NICOTINE DEPENDENCE 08/26/2015 REBEL GASTON DO Ot G47.33 OBSTRUCTIVE SLEEP APNEA (ADULT) (PEDIATR 08/26/2015 ALEK GODWIN REBEL M Ot G47.61 PERIODIC LIMB MOVEMENT DISORDER 09/06/2015 YASEMIN PUGH APRN Ot G47.33 OBSTRUCTIVE SLEEP APNEA (ADULT) (PEDIATR 09/14/2015 YASEMIN PUGH APRN Ot G47.33 OBSTRUCTIVE SLEEP APNEA (ADULT) (PEDIATR 07/01/2016 Jassi Drummond 250.00 DIABETES MELLITUS WITHOUT MENTION OF COMPLICATION, TYPE II OR UNSPECIFIED TYPE, NOT STATED UNCONTROLLED 07/01/2016 Jassi Drummond 272.4 OTHER AND UNSPECIFIED HYPERLIPIDEMIA 07/01/2016 Jassi Drummond 401.0 MALIGNANT ESSENTIAL HYPERTENSION 07/01/2016 Jassi Drummond 733.6 TIETZE'S DISEASE 07/01/2016 Jassi Drummond E11.9 TYPE 2 DIABETES MELLITUS WITHOUT COMPLICATIONS 07/01/2016 Jassi Drummond E78.5 HYPERLIPIDEMIA, UNSPECIFIED 07/01/2016 Jassi Drummond I10 ESSENTIAL (PRIMARY) HYPERTENSION 07/01/2016 Jassi Drummond M94.0 CHONDROCOSTAL JUNCTION SYNDROME [TIETZE] 08/27/2016 VALDEZ CAVANAUGH 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 08/27/2016 VALDEZ CAVANAUGH 728.2 MUSCULAR WASTING AND DISUSE ATROPHY, NOT ELSEWHERE CLASSIFIED 08/27/2016 VALDEZ CAVANAUGH M24.561 CONTRACTURE, RIGHT KNEE 08/27/2016 VALDEZ CAVANAUGH M62.561 MUSCLE WASTING AND ATROPHY, NEC, RIGHT LOWER LEG 10/19/2016 Ama Suarez 890.1 OPEN WOUND OF HIP AND THIGH, COMPLICATED 10/19/2016 Ama Suarez S71.141A PUNCTURE WOUND WITH FOREIGN BODY, RIGHT THIGH, INIT ENCNTR 11/26/2016 VALDEZ CAVANAUGH 715.16 OSTEOARTHROSIS, LOCALIZED, PRIMARY, INVOLVING LOWER LEG 11/26/2016 VALDEZ CAVANAUGH M17.11 UNILATERAL PRIMARY OSTEOARTHRITIS, RIGHT KNEE 12/17/2016 YASEMIN PUGH APRN Ot R06.02 SHORTNESS OF BREATH 12/17/2016 YASEMIN PUGH APRN Ot R06.02 SHORTNESS OF BREATH 12/17/2016 YASEMIN PUGH APRN Ot R06.02 SHORTNESS OF BREATH 02/05/2017 Tomas Mistry A 228.01 HEMANGIOMA OF SKIN AND SUBCUTANEOUS TISSUE 02/05/2017 Tomas Mistry A D18.01 HEMANGIOMA OF SKIN AND SUBCUTANEOUS TISSUE 02/09/2017 Hipolito, Netta W 041.49 02/09/2017 Hipolito, Netta W 250.00 02/09/2017 Hipolito, Netta W 272.4 OTHER AND UNSPECIFIED HYPERLIPIDEMIA 02/09/2017 Hipolito, Netta W 288.60 02/09/2017 Hipolito, Netta W 401.0 MALIGNANT ESSENTIAL HYPERTENSION 02/09/2017 Hipolito, Netta W 414.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 02/09/2017 Hipolito, Netta W 477.8 ALLERGIC RHINITIS DUE TO OTHER ALLERGEN 02/09/2017 Hipolito, Netta A 599.0 02/09/2017 Hipolito, Netta W B96.20 UNSP ESCHERICHIA COLI THE CAUSE OF DISEASES CLASSD ELSWHR 02/09/2017 Hipolito, Netta W D72.829 ELEVATED WHITE BLOOD CELL COUNT, UNSPECIFIED 02/09/2017 Hipolito, Netta W E11.9 TYPE 2 DIABETES MELLITUS WITHOUT COMPLICATIONS 02/09/2017 Hipolito, Netta W E78.5 HYPERLIPIDEMIA, UNSPECIFIED 02/09/2017 Hipolito, Netta W I10 ESSENTIAL (PRIMARY) HYPERTENSION 02/09/2017 Hipolito, Netta W I25.10 ATHSCL HEART DISEASE OF [place] CORONARY ARTERY W/O ANG PCTRS 02/09/2017 Hipolito Netta W J30.2 OTHER SEASONAL ALLERGIC RHINITIS 02/09/2017 Hipolito, Netta A N39.0 URINARY TRACT INFECTION, SITE NOT SPECIFIED 02/26/2017 Hipolito, Netta W 788.1 DYSURIA 02/26/2017 Hipolito, Netta W R30.0 DYSURIA 02/26/2017 Hipolito, Netta W 788.1 DYSURIA 02/26/2017 Hipolito, Netta W R30.0 DYSURIA 02/26/2017 Hipolito, Netta W 788.1 DYSURIA 02/26/2017 Hipolito, Netta W R30.0 DYSURIA 02/27/2017 LEXY, YASEMIN E PIPE JOINTS SUPERVISOR Ot R06.02 SHORTNESS OF BREATH 03/19/2017 Hipolito, Netta W 250.00 DIABETES MELLITUS WITHOUT MENTION OF COMPLICATION, TYPE II OR UNSPECIFIED TYPE, NOT STATED UNCONTROLLED 03/19/2017 Hipolito, Netta W E11.9 TYPE 2 DIABETES MELLITUS WITHOUT COMPLICATIONS 03/19/2017 Hipolito, Netta W 250.00 DIABETES MELLITUS WITHOUT MENTION OF COMPLICATION, TYPE II OR UNSPECIFIED TYPE, NOT STATED UNCONTROLLED 03/19/2017 Hipolito, Netta W E11.9 TYPE 2 DIABETES MELLITUS WITHOUT COMPLICATIONS 05/01/2017 Hipolito, Netta W 275.09 OTHER DISORDERS OF IRON METABOLISM 05/01/2017 [facility], Netta W 729.5 PAIN IN LIMB 05/01/2017 [facility], Netta W E61.1 IRON DEFICIENCY 05/01/2017 [facility], Netta W M79.606 PAIN IN LEG, UNSPECIFIED 05/01/2017 [facility], Netta W 275.09 OTHER DISORDERS OF IRON METABOLISM 05/01/2017 [facility], Netta W 729.5 PAIN IN LIMB 05/01/2017 Hipolito, Netta W E61.1 IRON DEFICIENCY 05/01/2017 [facility], Netta W M79.606 PAIN IN LEG, UNSPECIFIED 05/28/2017 [facility], Netta W 428.0 CONGESTIVE HEART FAILURE, UNSPECIFIED 05/28/2017 [facility], Netta W I50.9 HEART FAILURE, UNSPECIFIED 05/30/2017 [facility], Netta W 250.00 05/30/2017 [facility], Netta A 276.51 05/30/2017 [facility], Netta W 278.01 MORBID OBESITY 05/30/2017 [facility], Netta W 401.0 05/30/2017 [facility], Netta W 425.4 OTHER PRIMARY CARDIOMYOPATHIES 05/30/2017 [facility], Netta W 428.0 CONGESTIVE HEART FAILURE, UNSPECIFIED 05/30/2017 [facility], Netta W 428.9 05/30/2017 [facility], Netta W 780.79 05/30/2017 [facility], Netta W 781.99 05/30/2017 Hipolito, Netta W E11.9 TYPE 2 DIABETES MELLITUS WITHOUT COMPLICATIONS 05/30/2017 [facility], Netta W E66.01 MORBID (SEVERE) OBESITY DUE TO EXCESS CALORIES 05/30/2017 [facility], Netta A E86.0 05/30/2017 [facility], Netta W I10 ESSENTIAL (PRIMARY) HYPERTENSION 05/30/2017 [facility], Netta W I42.9 CARDIOMYOPATHY, UNSPECIFIED 05/30/2017 [facility], Netta W I50.9 HEART FAILURE, UNSPECIFIED 05/30/2017 [facility], Netta W R29.6 REPEATED FALLS 05/30/2017 [facility], Netta W R53.1 WEAKNESS 05/30/2017 [facility], Netta W V15.88 PERSONAL HISTORY OF FALL 05/30/2017 [facility], Netta W Z91.81 HISTORY OF FALLING 06/19/2017 [facility], Netta W 250.00 DIABETES MELLITUS WITHOUT MENTION OF COMPLICATION, TYPE II OR UNSPECIFIED TYPE, NOT STATED UNCONTROLLED 06/19/2017 [facility], Netta W 401.0 MALIGNANT ESSENTIAL HYPERTENSION 06/19/2017 [facility], Netta W 428.9 HEART FAILURE, UNSPECIFIED 06/19/2017 [facility], Netta W 715.30 OSTEOARTHROSIS, LOCALIZED, NOT SPECIFIED WHETHER PRIMARY OR SECONDARY, INVOLVING UNSPECIFIED SITE 06/19/2017 [facility], Netta A 780.79 06/19/2017 [facility], [place] W 781.99 06/19/2017 [facility], Netta W E11.9 TYPE 2 DIABETES MELLITUS WITHOUT COMPLICATIONS 06/19/2017 [facility], Netta W I10 ESSENTIAL (PRIMARY) HYPERTENSION 06/19/2017 [facility], Netta W I50.9 HEART FAILURE, UNSPECIFIED 06/19/2017 [facility], Netta W M19.90 UNSPECIFIED OSTEOARTHRITIS, UNSPECIFIED SITE 06/19/2017 [facility], Netta W R29.6 REPEATED FALLS 06/19/2017 [facility], Netta A R53.1 WEAKNESS 09/16/2017 [place], Netta W 781.99 OTHER SYMPTOMS INVOLVING NERVOUS AND MUSCULOSKELETAL SYSTEMS 09/16/2017 [facility], Netta W R29.6 REPEATED FALLS 10/25/2017 Jassi Drummond 250.80 DIABETES MELLITUS WITH OTHER SPECIFIED MANIFESTATIONS, TYPE II OR UNSPECIFIED TYPE, NOT STATED UNCONTROLLED 10/25/2017 Jassi Drummond E11.649 TYPE 2 DIABETES MELLITUS WITH HYPOGLYCEMIA WITHOUT COMA 10/29/2017 [facility], Netta A 781.99 OTHER SYMPTOMS INVOLVING NERVOUS AND MUSCULOSKELETAL SYSTEMS 10/29/2017 [facility], Netta A R29.6 REPEATED FALLS 12/10/2017 [facility], Netta W 276.51 DEHYDRATION 12/10/2017 [facility], Netta W E86.0 DEHYDRATION 12/10/2017 Hipolito, Netta W 276.51 DEHYDRATION 12/10/2017 Hipolito, Netta W 781.99 OTHER SYMPTOMS INVOLVING NERVOUS AND MUSCULOSKELETAL SYSTEMS 12/10/2017 Hipolito, Netta W 790.29 OTHER ABNORMAL GLUCOSE 12/10/2017 Hipolito, Netta W E86.0 DEHYDRATION 12/10/2017 [facility], Netta W R29.6 REPEATED FALLS 12/10/2017 Hipol[facility], Netta W R73.9 HYPERGLYCEMIA, UNSPECIFIED 12/12/2017 [facility], Netta W 250.80 12/12/2017 [facility], Netta W 272.4 12/12/2017 [facility], Netta A 276.51 DEHYDRATION 12/12/2017 [facility], Netta W 401.0 12/12/2017 [facility], Netta W 414.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 12/12/2017 [facility], Netta W 425.4 OTHER PRIMARY CARDIOMYOPATHIES 12/12/2017 [facility], Netta W 781.99 OTHER SYMPTOMS INVOLVING NERVOUS AND MUSCULOSKELETAL SYSTEMS 12/12/2017 [facility], Netta W 790.29 OTHER ABNORMAL GLUCOSE 12/12/2017 [facility], Netta W E11.65 TYPE 2 DIABETES MELLITUS WITH HYPERGLYCEMIA 12/12/2017 [facility], Netta W E78.5 HYPERLIPIDEMIA, UNSPECIFIED 12/12/2017 [facility], Netta A E86.0 DEHYDRATION 12/12/2017 [facility], Netta W I10 ESSENTIAL (PRIMARY) HYPERTENSION 12/12/2017 [facility], Netta W I25.10 ATHSCL HEART DISEASE OF [place] CORONARY ARTERY W/O ANG PCTRS 12/12/2017 [facility], Netta W I42.9 CARDIOMYOPATHY, UNSPECIFIED 12/12/2017 [place], Netta W R29.6 REPEATED FALLS 12/12/2017 [facility], Netta W R73.9 HYPERGLYCEMIA, UNSPECIFIED 01/14/2018 YASEMIN PUGH APRN Ot R06.02 SHORTNESS OF BREATH 01/26/2018 [facility], [place]ta W 250.00 DIABETES MELLITUS WITHOUT MENTION OF COMPLICATION, TYPE II OR UNSPECIFIED TYPE, NOT STATED UNCONTROLLED 01/26/2018 [place], Netta W 401.0 MALIGNANT ESSENTIAL HYPERTENSION 01/26/2018 Netta Mcmillan W 428.9 HEART FAILURE, UNSPECIFIED 01/26/2018 Krystina Mcmillana A 682.6 01/26/2018 Netta Mcmillan W 715.30 OSTEOARTHROSIS, LOCALIZED, NOT SPECIFIED WHETHER PRIMARY OR SECONDARY, INVOLVING UNSPECIFIED SITE 01/26/2018 Netta Mcmillan W 728.87 MUSCLE WEAKNESS (GENERALIZED) 01/26/2018 Krystina Mcmillana W E11.9 TYPE 2 DIABETES MELLITUS WITHOUT COMPLICATIONS 01/26/2018 Krystina Mcmillana W I10 ESSENTIAL (PRIMARY) HYPERTENSION 01/26/2018 Netta Mcmillan W I50.9 HEART FAILURE, UNSPECIFIED 01/26/2018 Netta Mcmillan A L03.116 CELLULITIS OF LEFT LOWER LIMB 01/26/2018 Netta Mcmillan W M19.90 UNSPECIFIED OSTEOARTHRITIS, UNSPECIFIED SITE 01/26/2018 Netta Mcmillan W M62.81 MUSCLE WEAKNESS (GENERALIZED) 03/04/2018 RENNY BLACKWELL MD Ot D75.1 SECONDARY POLYCYTHEMIA 03/04/2018 RENNY BLACKWELL MD Ot E11.9 TYPE 2 DIABETES MELLITUS WITHOUT COMPLIC 03/04/2018 RENNY BLACKWELL MD Ot G47.33 OBSTRUCTIVE SLEEP APNEA (ADULT) (PEDIATR 03/04/2018 RENNY BLACKWELL MD Ot I10 ESSENTIAL (PRIMARY) HYPERTENSION 03/04/2018 RENNY BLACKWELL MD Ot I25.10 ATHSCL HEART DISEASE OF [place] CORONARY 03/04/2018 RENNY BLACKWELL MD Ot R06.83 SNORING 03/04/2018 RENNY BLACKWELL MD Ot R09.02 HYPOXEMIA 03/04/2018 RENNY BLACKWELL MD Ot Z79.899 OTHER UTILITY OPERATOR YARN (CURRENT) DRUG THERAPY 03/04/2018 RENNY BLACKWELL MD Ot Z87.891 PERSONAL HISTORY OF NICOTINE DEPENDENCE 04/08/2018 Ama Suarez W 916.0 ABRASION OR FRICTION BURN OF HIP, THIGH, LEG, AND ANKLE, WITHOUT MENTION OF INFECTION 04/08/2018 Ama Suarez A 920 CONTUSION OF FACE, SCALP, AND NECK EXCEPT EYE(S) 04/08/2018 Ama Suarez W 924.11 CONTUSION OF KNEE 04/08/2018 Ama Suarez S00.03XA CONTUSION OF SCALP, INITIAL ENCOUNTER 04/08/2018 Ama Suarez W S80.01XA CONTUSION OF RIGHT KNEE, INITIAL ENCOUNTER 04/08/2018 Ama Suarez W S80.02XA CONTUSION OF LEFT KNEE, INITIAL ENCOUNTER 04/08/2018 Ama Suarez W S80.211A ABRASION, RIGHT KNEE, INITIAL ENCOUNTER 04/08/2018 Ama Suarez W S80.212A ABRASION, LEFT KNEE, INITIAL ENCOUNTER 04/13/2018 RENNY BLACKWELL MD Ot D75.1 SECONDARY POLYCYTHEMIA 04/13/2018 RENNY BLACKWELL MD Ot E11.9 TYPE 2 DIABETES MELLITUS WITHOUT COMPLIC 04/13/2018 RENNY BLACKWELL MD Ot G47.33 OBSTRUCTIVE SLEEP APNEA (ADULT) (PEDIATR 04/13/2018 RENNY BLACKWELL MD Ot I10 ESSENTIAL (PRIMARY) HYPERTENSION 04/13/2018 RENNY BLACKWELL MD Ot I25.10 ATHSCL HEART DISEASE OF [place] CORONARY 04/13/2018 RENNY BLACKWELL MD Ot R06.83 SNORING 04/13/2018 RENNY BLACKWELL MD Ot R09.02 HYPOXEMIA 04/13/2018 RENNY BLACKWELL MD Ot Z79.899 OTHER UTILITY OPERATOR YARN (CURRENT) DRUG THERAPY 04/13/2018 RENNY BLACKWELL MD Ot Z87.891 PERSONAL HISTORY OF NICOTINE DEPENDENCE 05/06/2018 Netta Mcmillan W 781.99 OTHER SYMPTOMS INVOLVING NERVOUS AND MUSCULOSKELETAL SYSTEMS 05/06/2018 Netta Mcmillan R29.6 REPEATED FALLS 05/10/2018 Netta Mcmillan W 238.4 POLYCYTHEMIA VERA 05/10/2018 Netta Mcmillan W 250.00 05/10/2018 Netta Mcmillan W 272.4 OTHER AND UNSPECIFIED HYPERLIPIDEMIA 05/10/2018 Krystina Mcmillana W 276.8 05/10/2018 Krystina Mcmillana W 333.94 RESTLESS LEGS SYNDROME (RLS) 05/10/2018 Netta Mcmillan W 401.0 05/10/2018 Netta Mcmillan W 425.4 05/10/2018 Netta Mcmillan W 715.30 OSTEOARTHROSIS, LOCALIZED, NOT SPECIFIED WHETHER PRIMARY OR SECONDARY, INVOLVING UNSPECIFIED SITE 05/10/2018 Netta Mcmillan W 780.60 05/10/2018 Netta Mcmillan W 780.97 05/10/2018 Krystina Mcmillana W 781.99 OTHER SYMPTOMS INVOLVING NERVOUS AND MUSCULOSKELETAL SYSTEMS 05/10/2018 Hipolito, Netta W D45 POLYCYTHEMIA VERA 05/10/2018 Hipolito, Netta W E11.9 TYPE 2 DIABETES MELLITUS WITHOUT COMPLICATIONS 05/10/2018 Hipolito, Netta W E78.5 HYPERLIPIDEMIA, UNSPECIFIED 05/10/2018 Hipolito, Netta W E87.6 HYPOKALEMIA 05/10/2018 Hipolito, Netta W G25.81 RESTLESS LEGS SYNDROME 05/10/2018 Hipolito, Netta W I10 ESSENTIAL (PRIMARY) HYPERTENSION 05/10/2018 Hipolito, Netta W I42.9 CARDIOMYOPATHY, UNSPECIFIED 05/10/2018 Hipolito, Netta W M19.90 UNSPECIFIED OSTEOARTHRITIS, UNSPECIFIED SITE 05/10/2018 Hipolito, Netta W R29.6 REPEATED FALLS 05/10/2018 Hipolito, Netta W R41.82 05/10/2018 Hipolito, Netta W R50.9 FEVER, UNSPECIFIED 05/30/2018 Hipolito, Netta W 599.0 URINARY TRACT INFECTION, SITE NOT SPECIFIED 05/30/2018 Hipolito, Netta W N39.0 URINARY TRACT INFECTION, SITE NOT SPECIFIED 05/30/2018 Hipolito, Netta W 599.0 URINARY TRACT INFECTION, SITE NOT SPECIFIED 05/30/2018 Hipolito, Netta W 780.79 OTHER MALAISE AND FATIGUE 05/30/2018 Hipolito, Netta W N39.0 URINARY TRACT INFECTION, SITE NOT SPECIFIED 05/30/2018 Hipolito, Netta W P96.89 OTHER SPECIFIED CONDITIONS ORIGINATING IN THE PERIOD 05/30/2018 Hipolito, Netta W 599.0 URINARY TRACT INFECTION, SITE NOT SPECIFIED 05/30/2018 Hipolito, Netta W 780.79 OTHER MALAISE AND FATIGUE 05/30/2018 Hipolito, Netta W N39.0 URINARY TRACT INFECTION, SITE NOT SPECIFIED 05/30/2018 Hipolito, Netta W P96.89 OTHER SPECIFIED CONDITIONS ORIGINATING IN THE PERIOD 06/02/2018 RENNY BLACKWELL MD, Ot D75.1 SECONDARY POLYCYTHEMIA 06/02/2018 RENNY BLACKWELL MD Ot E11.9 TYPE 2 DIABETES MELLITUS WITHOUT COMPLIC 06/02/2018 RENNY BLACKWELL MD, Ot G47.33 OBSTRUCTIVE SLEEP APNEA (ADULT) (PEDIATR 06/02/2018 RISHI GREY, RENNY Ot I10 ESSENTIAL (PRIMARY) HYPERTENSION 06/02/2018 RENNY BLACKWELL MD Ot I25.10 ATHSCL HEART DISEASE OF [place] CORONARY 06/02/2018 RISHI GREY, RENNY Ot R06.83 SNORING 06/02/2018 RENNY BLACKWELL MD Ot R09.02 HYPOXEMIA 06/02/2018 RENNY BLACKWELL MD Ot Z79.899 OTHER JAIL (CURRENT) DRUG THERAPY 06/02/2018 RENNY BLACKWELL MD Ot Z87.891 PERSONAL HISTORY OF NICOTINE DEPENDENCE 06/03/2018 [facility], Netta W 238.4 06/03/2018 [facility], Netta W 250.00 06/03/2018 Hipolito, Netta W 333.94 RESTLESS LEGS SYNDROME (RLS) 06/03/2018 [facility], Netta W 401.0 06/03/2018 [facility], Netta W 425.4 06/03/2018 Hipolito, Netta W 599.0 URINARY TRACT INFECTION, SITE NOT SPECIFIED 06/03/2018 Hipolito, Netta W 729.5 PAIN IN LIMB 06/03/2018 [facility], Netta 780.60 06/03/2018 Hipolito, Netta W 780.79 OTHER MALAISE AND FATIGUE 06/03/2018 [facility], Netta W 791.9 06/03/2018 [facility], Netta W D45 06/03/2018 [facility], Netta W E11.9 TYPE 2 DIABETES MELLITUS WITHOUT COMPLICATIONS 06/03/2018 [facility], Netta W G25.81 RESTLESS LEGS SYNDROME 06/03/2018 Hipolito, Netta W I10 ESSENTIAL (PRIMARY) HYPERTENSION 06/03/2018 Hipolito, Netta W I42.9 CARDIOMYOPATHY, UNSPECIFIED 06/03/2018 [facility], Netta W M79.661 PAIN IN RIGHT LOWER LEG 06/03/2018 Hipolito, Netta W N39.0 URINARY TRACT INFECTION, SITE NOT SPECIFIED 06/03/2018 Hipolito, Netta W P96.89 OTHER SPECIFIED CONDITIONS ORIGINATING IN THE PERIOD 06/03/2018 Hipolito, Netta W R41.82 06/03/2018 Hipolito, Netta W R50.9 06/03/2018 [facility], Netta W R53.1 WEAKNESS 06/03/2018 Hipolito, Netta W R82.998 OTHER ABNORMAL FINDINGS IN URINE 06/03/2018 Netta Mcmillan W V58.67 LONG-TERM (CURRENT) USE OF INSULIN 06/03/2018 Netta Mcmillan W Z79.4 JAIL (CURRENT) USE OF INSULIN 06/08/2018 RENNY BLACKWELL MD, Ot D75.1 SECONDARY POLYCYTHEMIA 06/08/2018 RENNY BLACKWELL MD Ot E11.9 TYPE 2 DIABETES MELLITUS WITHOUT COMPLIC 06/08/2018 RENNY BLACKWELL MD, Ot G47.33 OBSTRUCTIVE SLEEP APNEA (ADULT) (PEDIATR 06/08/2018 RENNY BLACKWELL MD Ot I10 ESSENTIAL (PRIMARY) HYPERTENSION 06/08/2018 RENNY BLACKWELL MD Ot I25.10 ATHSCL HEART DISEASE OF [place] CORONARY 06/08/2018 RENNY BLACKWELL MD Ot R06.83 SNORING 06/08/2018 RENNY BLACKWELL MD Ot R09.02 HYPOXEMIA 06/08/2018 RENNY BLACKWELL MD, Ot Z79.899 OTHER UTILITY OPERATOR YARN (CURRENT) DRUG THERAPY 06/08/2018 RENNY BLACKWELL MD, Ot Z87.891 PERSONAL HISTORY OF NICOTINE DEPENDENCE 06/16/2018 Jassi Drummond 276.51 DEHYDRATION 06/16/2018 Jassi Drummond 458.29 OTHER IATROGENIC HYPOTENSION 06/16/2018 Jassi Drummond 995.29 UNSPECIFIED ADVERSE EFFECT OF OTHER DRUG, MEDICINAL AND BIOLOGICAL SUBSTANCE 06/16/2018 Jassi Drummond E86.0 DEHYDRATION 06/16/2018 Jassi Drummond I95.2 HYPOTENSION DUE TO DRUGS 06/16/2018 Jassi Drummond T45.1X5A ADVERSE EFFECT OF ANTINEOPLASTIC AND IMMUNOSUP DRUGS, INIT 06/26/2018 RENNY BLACKWELL MD, Ot D75.1 SECONDARY POLYCYTHEMIA 06/26/2018 RENNY BLACKWELL MD, Ot E11.9 TYPE 2 DIABETES MELLITUS WITHOUT COMPLIC 06/26/2018 RENNY BLACKWELL MD, Ot G47.33 OBSTRUCTIVE SLEEP APNEA (ADULT) (PEDIATR 06/26/2018 RENNY BLACKWELL MD Ot I10 ESSENTIAL (PRIMARY) HYPERTENSION 06/26/2018 RENNY BLACKWELL MD Ot I25.10 ATHSCL HEART DISEASE OF [place] CORONARY 06/26/2018 RENNY BLACKWELL MD Ot R06.83 SNORING 06/26/2018 RENNY BLACKWELL MD Ot R09.02 HYPOXEMIA 06/26/2018 RENNY BLACKWELL MD Ot Z79.899 OTHER JAIL (CURRENT) DRUG THERAPY 06/26/2018 RENNY BLACKWELL MD Ot Z87.891 PERSONAL HISTORY OF NICOTINE DEPENDENCE 07/03/2018 W 238.4 POLYCYTHEMIA VERA 07/03/2018 W 250.00 DIABETES MELLITUS WITHOUT MENTION OF COMPLICATION, TYPE II OR UNSPECIFIED TYPE, NOT STATED UNCONTROLLED 07/03/2018 W 333.94 RESTLESS LEGS SYNDROME (RLS) 07/03/2018 W 401.0 MALIGNANT ESSENTIAL HYPERTENSION 07/03/2018 W 715.30 OSTEOARTHROSIS, LOCALIZED, NOT SPECIFIED WHETHER PRIMARY OR SECONDARY, INVOLVING UNSPECIFIED SITE 07/03/2018 W 728.87 07/03/2018 W D45 POLYCYTHEMIA VERA 07/03/2018 W E11.9 TYPE 2 DIABETES MELLITUS WITHOUT COMPLICATIONS 07/03/2018 W G25.81 RESTLESS LEGS SYNDROME 07/03/2018 W I10 ESSENTIAL ( PRIMARY) HYPERTENSION 07/03/2018 W M19.90 UNSPECIFIED OSTEOARTHRITIS, UNSPECIFIED SITE 07/03/2018 W M62.81 MUSCLE WEAKNESS (GENERALIZED) 08/07/2018 RENNY BLACKWELL MD Ot D75.1 SECONDARY POLYCYTHEMIA 08/07/2018 RENNY BLACKWELL MD Ot E11.9 TYPE 2 DIABETES MELLITUS WITHOUT COMPLIC 08/07/2018 RENNY BLACKWELL MD Ot G47.33 OBSTRUCTIVE SLEEP APNEA (ADULT) (PEDIATR 08/07/2018 RENNY BLACKWELL MD Ot I10 ESSENTIAL (PRIMARY) HYPERTENSION 08/07/2018 RENNY BLACKWELL MD Ot I25.10 ATHSCL HEART DISEASE OF [place] CORONARY 08/07/2018 RENNY BLACKWELL MD Ot R06.83 SNORING 08/07/2018 RENNY BLACKWELL MD Ot R09.02 HYPOXEMIA 08/07/2018 RENNY BLACKWELL MD Ot Z79.899 OTHER JAIL (CURRENT) DRUG THERAPY 08/07/2018 RENNY BLACKWELL MD Ot Z87.891 PERSONAL HISTORY OF NICOTINE DEPENDENCE 09/03/2018 MAXWELL ECHEVERRIA MD Ot D45 POLYCYTHEMIA VERA 09/03/2018 MAXWELL ECHEVERRIA MD Ot E66.01 MORBID (SEVERE) OBESITY DUE TO EXCESS CA 09/03/2018 MAXWELL ECHEVERRIA MD Ot G47.33 OBSTRUCTIVE SLEEP APNEA (ADULT) (PEDIATR 09/03/2018 MAXWELL ECHEVERRIA MD Ot I10 ESSENTIAL (PRIMARY) HYPERTENSION 09/03/2018 MAXWELL ECHEVERRIA MD, Ot I25.10 ATHSCL HEART DISEASE OF [place] CORONARY 09/03/2018 MAXWELL ECHEVERRIA MD, Ot Z68.36 BODY MASS INDEX (BMI) 36.0-36.9, ADULT Procedures There is no data. Results Test Result Range CBC with Auto Diff - 07/01/16 15:28 Baso% 1.00 % 0.00-2.50 Eos 0.4 K/uL 0.0-0.7 Eos% 3.3 % 0.0-7.0 Hct 50.1 % 36.0-46.0 Hgb 15.0 g/dL 13.0-15.0 Lym 2.57 K/uL 0.60-3.40 Lym% 22.1 % 10.0-50.0 MCH 22.6 pg 27.0-31.0 MCHC 29.9 g/dL 32.0-36.0 MCV 75.6 fL 80.0-97.0 Mills% 8.9 % 0.0-12.0 MPV 9.9 fL 7.4-10.0 Dixie% 64.7 % 37.0-80.0 Plt 337 K/uL 150-400 RBC 6.63 M/uL 3.60-5.00 RDW 21.3 % 11.6-14.8 WBC 11.65 K/uL 5.00-10.00 Dixie 7.54 K/uL 2.00-6.90 Mills 1.0 K/uL 0.0-0.9 Baso 0.1 K/uL 0.0-0.2 EKG - 07/01/16 15:29 EKG Complete Peripheral Smear - 07/11/16 11:48 Peripheral smear Sent to [place] [facility] for review Microalbumin - 10/31/16 07:15 Microalb 8.0 mg/L 0.0-20.0 Hemoglobin A1C - 10/31/16 07:15 % A1C 7.50 % 5.40-6.60 AvGlu 191 mg/dL 70-110 Urine Culture - 10/31/16 07:15 PRELIM CULTURE RESULTS >100,000 Gram Negative Lactose Personnel Coordinator ELLEN / ID to Follow MEDIA PLATED Setup at 07:47 on 10/31/2016 CULTURE SOURCE void into hat Sensi - 10/31/16 07:15 FINAL CULTURE RESULTS Klebsiella pneumoniae (Isolate 1) Ampicillin/Sulbactam <=8/4 Ampicillin >16 Amoxicillin/K Clavulanate <=8/4 Ceftriaxone <=8 Ciprofloxacin <=1 Nitrofurantoin <=32 Gentamicin <=4 Levofloxacin <=2 Trimethoprim/ Sulfamethoxazole <=2/38 Tetracycline <=4 Amikacin <=16 Aztreonam <=8 Ceftazidime <=1 Ceftazidime/K Clavulanate <=0.25 Cephalothin <=8 Cefotaxime <=2 Cefotaxime/K Clavulanate <=0.5 Cefoxitin <=8 Cefazolin <=8 Cefepime <=8 Cefuroxime <=4 Ertapenem <=1 Imipenem <=4 Meropenem <=4 Piperacillin/Tazobactam <=16 Piperacillin <=16 Tigecycline <=2 Tobramycin <=4 Iron - 11/14/16 10:00 Iron 49 ug/dL 70-200 Comprehensive Metabolic Panel - 01/21/17 13:37 Albumin 4.0 g/dL 3.6-5.1 ALP 91 U/L 35-130 ALT 22 U/L 6-45 Anion Gap 16 6-14 AST 23 U/L 2-40 BUN 14 mg/dL 5-25 Calcium 9.6 mg/dL 8.3-10.4 Chloride 102 mmol/L 95-114 CO2 29 mEq/L 22-33 Creat 0.81 mg/dL 0.50-1.50 eGFR 70 mL/min/1.73m2 >59 Globulin 2.5 g/dL 2.3-3.5 Glucose 88 mg/dL 70-110 Osmo 293 280-295 Potassium 4.7 mmol/L 3.5-5.3 Sodium 142 mmol/L 134-148 TBil 0.6 mg/dL 0.2-1.2 TP 6.5 g/dL 6.0-8.3 [facility] - 02/03/17 12:55 Anion Gap 14 6-14 BUN 12 mg/dL 5-25 Calcium 9.5 mg/dL 8.3-10.4 Chloride 102 mmol/L 95-114 CO2 32 mEq/L 22-33 Creat 0.80 mg/dL 0.50-1.50 eGFR 71 mL/min/1.73m2 >59 Glucose 194 mg/dL 70-110 Osmo 300 280-295 Potassium 5.2 mmol/L 3.5-5.3 Sodium 143 mmol/L 134-148 Surgical Pathology - 02/05/17 09:46 Surg Path Sent to [place] [facility] BNP - 02/07/17 23:30 BNP 102.10 pg/ml 0.00-100.00 Urinalysis - 02/07/17 23:33 Icotest N/A Negative Urine Volume Urine Volume Sufficient (10mL) Urine Yeast No Yeast present Urine-Appearance Slightly Cloudy Clear Urine-Bacteria 3+ Urine-Bilirubin Negative Negative Urine-Blood 1+ Negative Urine-Color Yellow Colorless-Lt. Yellow Urine-Epithelial Cells 0-5/HPF Urine-Glucose Negative Negative Urine-Ketones Negative Negative Urine-Leukocytes 1+ Negative Urine-Nitrite Negative Negative Urine-Other Culture to follow Urine-pH 6.5 5-8.5 Urine-Protein Negative Negative Urine-RBC 2-5/HPF Urine-Specific [place] 1.010 1.000-1.030 Urine-WBC 2-5/HPF Urobilinogen 0.2 0.2-1.0 Urine Culture - 02/07/17 23:56 PRELIM CULTURE RESULTS >100,000 Gram Negative ELLEN / ID to Follow MEDIA PLATED Setup at 00:03 on 02/08/2017 CULTURE SOURCE void Sensi - 02/07/17 23:56 FINAL CULTURE RESULTS Escherichia coli (Isolate 1) Ampicillin/Sulbactam 16/8 Ampicillin >16 Amoxicillin/K Clavulanate <=8/4 Ceftriaxone <=8 Ciprofloxacin <=1 Nitrofurantoin <=32 Gentamicin <=4 Levofloxacin <=2 Trimethoprim/ Sulfamethoxazole <=2/38 Tetracycline <=4 Amikacin <=16 Aztreonam <=8 Ceftazidime <=1 Ceftazidime/K Clavulanate <=0.25 Cephalothin 16 Cefotaxime <=2 Cefotaxime/K Clavulanate <=0.5 Cefoxitin <=8 Cefazolin <=8 Cefepime <=8 Cefuroxime <=4 Ertapenem <=1 Imipenem <=4 Meropenem <=4 Piperacillin/Tazobactam <=16 Piperacillin >64 Tigecycline <=2 Tobramycin <=4 BMP - 02/08/17 07:00 Anion Gap 15 6-14 BUN 7 mg/dL 5-25 Calcium 9.1 mg/dL 8.3-10.4 Chloride 104 mmol/L 95-114 CO2 27 mEq/L 22-33 Creat 0.66 mg/dL 0.50-1.50 eGFR 89 mL/min/1.73m2 >59 Glucose 137 mg/dL 70-110 Osmo 293 280-295 Potassium 4.0 mmol/L 3.5-5.3 Sodium 142 mmol/L 134-148 CBC with Auto Diff - 02/09/17 06:45 Baso% 1.30 % 0.00-2.50 Eos 0.3 K/uL 0.0-0.7 Eos% 2.5 % 0.0-7.0 Hct 51.9 % 36.0-46.0 Hgb 15.9 g/dL 13.0-15.0 Lym 1.80 K/uL 0.60-3.40 Lym% 15.2 % 10.0-50.0 MCH 22.6 pg 27.0-31.0 MCHC 30.6 g/dL 32.0-36.0 MCV 73.9 fL 80.0-97.0 Mills% 8.1 % 0.0-12.0 MPV 9.6 fL 7.4-10.0 Dixie% 72.9 % 37.0-80.0 Plt 332 K/uL 150-400 RBC 7.02 M/uL 3.60-5.00 RDW 22.4 % 11.6-14.8 WBC 11.83 K/uL 5.00-10.00 Dixie 8.62 K/uL 2.00-6.90 Mills 1.0 K/uL 0.0-0.9 Baso 0.2 K/uL 0.0-0.2 Urine Culture - 02/26/17 17:54 PRELIM CULTURE RESULTS No Growth 24 hours FINAL CULTURE RESULTS No Growth 48 hours MEDIA PLATED Setup at 19:54 on 02/26/2017 CULTURE SOURCE void Microalbumin - 03/19/17 09:00 Microalb <5.0 mg/L 0.0-20.0 Comprehensive Metabolic Panel - 05/01/17 16:08 Albumin 4.0 g/dL 3.6-5.1 ALP 102 U/L 35-130 ALT 23 U/L 6-45 Anion Gap 16 6-14 AST 19 U/L 2-40 BUN 15 mg/dL 5-25 Calcium 9.7 mg/dL 8.3-10.4 Chloride 100 mmol/L 95-114 CO2 31 mEq/L 22-33 Creat 0.79 mg/dL 0.50-1.50 eGFR 72 mL/min/1.73m2 >59 Globulin 2.6 g/dL 2.3-3.5 Glucose 206 mg/dL 70-110 Osmo 299 280-295 Potassium 4.9 mmol/L 3.5-5.3 Sodium 142 mmol/L 134-148 TBil 0.5 mg/dL 0.2-1.2 TP 6.6 g/dL 6.0-8.3 Iron - 05/01/17 16:08 Iron 31 ug/dL 70-200 Magnesium - 05/01/17 16:08 Mg++ 1.8 mg/dL 1.6-2.6 Urine Culture - 05/25/17 12:15 PRELIM CULTURE RESULTS >100,000 Gram Negative - ELLEN / ID to Follow MEDIA PLATED Setup at 16:54 05/25/2017 CULTURE SOURCE URINE CULTURE Sensi - 05/25/17 12:15 FINAL CULTURE RESULTS Escherichia coli (Isolate 1) Ampicillin/Sulbactam <=8/4 Ampicillin >16 Amoxicillin/K Clavulanate <=8/4 Ceftriaxone <=8 Ciprofloxacin <=1 Nitrofurantoin <=32 Gentamicin <=4 Levofloxacin <=2 Trimethoprim/ Sulfamethoxazole <=2/38 Tetracycline <=4 Amikacin <=16 Aztreonam <=8 Ceftazidime <=1 Ceftazidime/K Clavulanate <=0.25 Cephalothin <=8 Cefotaxime <=2 Cefotaxime/K Clavulanate <=0.5 Cefoxitin <=8 Cefazolin <=8 Cefepime <=8 Cefuroxime <=4 Ertapenem <=1 Imipenem <=4 Meropenem <=4 Piperacillin/Tazobactam <=16 Piperacillin 64 Tigecycline <=2 Tobramycin <=4 Troponin I - 05/28/17 12:00 Troponin <0.020 ng/mL 0.0-0.4 Urinalysis - 05/28/17 12:45 Icotest N/A Negative Urine Volume Urine Volume Sufficient (10mL) Urine Yeast No Yeast present Urine-Appearance Clear Clear Urine-Bacteria Negative Urine-Bilirubin Negative Negative Urine-Blood Negative Negative Urine-Color Yellow Colorless-Lt. Yellow Urine-Glucose Negative Negative Urine-Ketones Negative Negative Urine-Leukocytes Negative Negative Urine-Nitrite Negative Negative Urine-Other Urine Saved if Culture Needed (48hrs from time of collection) Urine-pH 6.5 5-8.5 Urine-Protein Negative Negative Urine-RBC Negative Urine-Specific [place] 1.015 1.000-1.030 Urine-WBC Nothing Seen on Microscopic Urobilinogen 0.2 E.U./dL 0.2-1.0 BMP - 05/29/17 07:30 Anion Gap 18 6-14 BUN 13 mg/dL 5-25 Calcium 9.5 mg/dL 8.3-10.4 Chloride 105 mmol/L 95-114 CO2 21 mEq/L 22-33 Creat 0.85 mg/dL 0.50-1.50 eGFR 67 mL/min/1.73m2 >59 Glucose 183 mg/dL 70-110 Osmo 291 280-295 Potassium 4.9 mmol/L 3.5-5.3 Sodium 139 mmol/L 134-148 BMP - 08/15/17 11:38 Anion Gap 21 6-14 BUN 13 mg/dL 5-25 Calcium 9.2 mg/dL 8.3-10.4 Chloride 100 mmol/L 95-114 CO2 26 mEq/L 22-33 Creat 0.86 mg/dL 0.50-1.50 eGFR 66 mL/min/1.73m2 >59 Glucose 248 mg/dL 70-110 Osmo 301 280-295 Potassium 4.5 mmol/L 3.5-5.3 Sodium 142 mmol/L 134-148 Urine Culture - 08/15/17 11:38 GRAM STAIN Gram Positive Cocci in Clusters MEDIA PLATED Setup at 11:59 on 08/15/2017 CULTURE SOURCE hat Sensi - 08/15/17 11:38 FINAL CULTURE RESULTS Staphylococcus epidermidis (Isolate 1) Ampicillin/Sulbactam <=8/4 Ampicillin 8 Amoxicillin/K Clavulanate <=4/2 Ceftriaxone <=8 Clindamycin >4 Cefoxitin Screen N/R Ciprofloxacin <=1 Daptomycin <=0.5 Erythromycin >4 Nitrofurantoin <=32 Gentamicin <=4 Gentamicin Synergy Screen N/R Inducible Clindamycin N/R Levofloxacin <=1 Linezolid <=1 Moxifloxacin <=0.5 Oxacillin >2 Penicillin 8 Rifampin <=1 Streptomycin Synergy N/R Synercid <=0.5 Trimethoprim/ Sulfamethoxazole > Tetracycline <=4 Vancomycin 2 Urinalysis - 10/18/17 10:27 Icotest N/A Negative Urine Volume Urine Volume Sufficient (10mL) Urine Yeast No Yeast present Urine-Appearance Cloudy Clear Urine-Bacteria 4+ Urine-Bilirubin Negative Negative Urine-Blood Negative Negative Urine-Color Yellow Colorless-Lt. Yellow Urine-Glucose Negative Negative Urine-Ketones Negative Negative Urine-Leukocytes 1+ Negative Urine-Nitrite Positive Negative Urine-Other Culture to follow Urine-pH 6.0 5-8.5 Urine-Protein Negative Negative Urine-RBC Negative Urine-Specific [place] 1.015 1.000-1.030 Urine-WBC 10-20/HPF Urobilinogen 0.2 E.U./dL 0.2-1.0 Urine Culture - 10/18/17 10:27 PRELIM CULTURE RESULTS >100,000 Gram Negative ELLEN / ID to Follow CULTURE SOURCE urine Sensi - 10/18/17 10:27 FINAL CULTURE RESULTS Escherichia coli (Isolate 1) Ampicillin/Sulbactam 16/8 Ampicillin >16 Amoxicillin/K Clavulanate <=8/4 Ceftriaxone <=8 Ciprofloxacin <=1 Nitrofurantoin <=32 Gentamicin <=4 Levofloxacin <=2 Trimethoprim/ Sulfamethoxazole <= Tetracycline <=4 Amikacin <=16 Aztreonam <=8 Ceftazidime <=1 Ceftazidime/K Clavulanate <=0.25 Cephalothin >16 Cefotaxime <=2 Cefotaxime/K Clavulanate <=0.5 Cefoxitin <=8 Cefazolin <=8 Cefepime <=8 Cefuroxime <=4 Ertapenem <=1 Imipenem <=4 Meropenem <=4 Piperacillin/Tazobactam <=16 Piperacillin >64 Tigecycline <=2 Tobramycin <=4 BMP - 10/25/17 16:47 Anion Gap 21 6-14 BUN 13 mg/dL 5-25 Calcium 11.3 mg/dL 8.3-10.4 Chloride 100 mmol/L 95-114 CO2 25 mEq/L 22-33 Creat 0.85 mg/dL 0.50-1.50 eGFR 67 mL/min/1.73m2 >59 Glucose 114 mg/dL 70-110 Osmo 294 280-295 Potassium 4.4 mmol/L 3.5-5.3 Sodium 142 mmol/L 134-148 Urinalysis - 10/25/17 20:02 Icotest N/A Negative Urine Volume Urine Volume Sufficient (10mL) Urine-Appearance Clear Clear Urine-Bacteria Negative Urine-Bilirubin Negative Negative Urine-Blood Negative Negative Urine-Color Yellow Colorless-Lt. Yellow Urine-Epithelial Cells 0-5/HPF Urine-Glucose Negative Negative Urine-Ketones Negative Negative Urine-Leukocytes Trace Negative Urine-Nitrite Negative Negative Urine-Other Urine Saved if Culture Needed (48hrs from time of collection) Urine-pH 7.0 5-8.5 Urine-Protein Negative Negative Urine-RBC 0-2/HPF Urine-Specific [place] 1.015 1.000-1.030 Urine-WBC 2-5/HPF Urobilinogen 0.2 0.2-1.0 Other Culture - 11/10/17 12:20 PRELIM CULTURE RESULTS Small amount coagulase negative staphlycoccus , probable skin contaminate. FINAL CULTURE RESULTS Scant Gram Positive Mixed Lizbet including Coag Negative [id number] Skin Contaminant [id number] Further Workup done MEDIA PLATED Setup at 12:41 on 11/10/2017 Urinalysis - 12/03/17 10:15 Icotest N/A Negative Urine Volume Urine Volume Sufficient (10mL) Urine Yeast No Yeast present Urine-Appearance Clear Clear Urine-Bacteria Trace Urine-Bilirubin Negative Negative Urine-Blood Trace-lysed Negative Urine-Color Yellow Colorless-Lt. Yellow Urine-Epithelial Cells 0-5/HPF Urine-Glucose 2+ Negative Urine-Ketones Negative Negative Urine-Leukocytes Trace Negative Urine-Nitrite Negative Negative Urine-Other Urine Saved if Culture Needed (48hrs from time of collection) Urine-pH 7.0 5-8.5 Urine-Protein Negative Negative Urine-RBC 5-10/HPF Urine-Specific [place] 1.015 1.000-1.030 Urine-WBC 2-5/HPF Urobilinogen 0.2 0.2-1.0 Urine Culture - 12/03/17 10:15 PRELIM CULTURE RESULTS 20,000-50,000 Gram Negative ELLEN / ID to Follow CULTURE SOURCE clean catch Urine Culture - 12/03/17 10:15 PRELIM CULTURE RESULTS 20,000-50,000 of 2 Gram Negatives ELLEN / ID to Follow MEDIA PLATED 12.03.2017 CULTURE SOURCE void Sensi - 12/03/17 10:15 Ampicillin/Sulbactam >16/8 Ampicillin >16 Amoxicillin/K Clavulanate >16/8 Ceftriaxone <=8 Ciprofloxacin <=1 Nitrofurantoin >64 Gentamicin <=4 Levofloxacin <=2 Trimethoprim/ Sulfamethoxazole <=2/38 Tetracycline <=4 Amikacin <=16 Aztreonam <=8 Ceftazidime <=1 Ceftazidime/K Clavulanate 2 Cephalothin >16 Cefotaxime <=2 Cefotaxime/K Clavulanate <=0.5 Cefoxitin >16 Cefazolin >16 Cefepime <=8 Cefuroxime 8 Ertapenem <=1 Imipenem <=4 Meropenem <=4 Piperacillin/Tazobactam <=16 Piperacillin <=16 Tigecycline <=2 Tobramycin <=4 FINAL CULTURE RESULTS Enterobacter cloacae (Isolate 2) Sensi - 12/03/17 10:15 FINAL CULTURE RESULTS Escherichia coli (Isolate 1) Ampicillin/Sulbactam >16/8 Ampicillin >16 Amoxicillin/K Clavulanate <=8/4 Ceftriaxone <=8 Ciprofloxacin <=1 Nitrofurantoin <=32 Gentamicin <=4 Levofloxacin <=2 Trimethoprim/ Sulfamethoxazole <=2/38 Tetracycline <=4 Amikacin <=16 Aztreonam <=8 Ceftazidime <=1 Ceftazidime/K Clavulanate <=0.25 Cephalothin >16 Cefotaxime <=2 Cefotaxime/K Clavulanate <=0.5 Cefoxitin <=8 Cefazolin <=8 Cefepime <=8 Cefuroxime <=4 Ertapenem <=1 Imipenem <=4 Meropenem <=4 Piperacillin/Tazobactam <=16 Piperacillin >64 Tigecycline <=2 Tobramycin <=4 Urinalysis - 12/10/17 11:08 Icotest N/A Negative Urine Volume Urine Volume Sufficient (10mL) Urine Yeast No Yeast present Urine-Appearance Clear Clear Urine-Bacteria Negative Urine-Bilirubin Negative Negative Urine-Blood Negative Negative Urine-Color Yellow Colorless-Lt. Yellow Urine-Epithelial Cells 0-5/HPF Urine-Glucose 2+ Negative Urine-Ketones Negative Negative Urine-Leukocytes Negative Negative Urine-Nitrite Negative Negative Urine-Other Urine Saved if Culture Needed (48hrs from time of collection) Urine-pH 6.5 5-8.5 Urine-Protein Negative Negative Urine-RBC Negative Urine-Specific [place] 1.020 1.000-1.030 Urine-WBC Nothing Seen on Microscopic Urobilinogen 0.2 E.U./dL 0.2-1.0 Thyroid Stimulating Hormone - 12/10/17 11:15 TSH 1.41 mIU/mL 0.32-5.00 [facility] - 12/11/17 06:56 Anion Gap 17 6-14 BUN 12 mg/dL 5-25 Calcium 9.0 mg/dL 8.3-10.4 Chloride 106 mmol/L 95-114 CO2 22 mEq/L 22-33 Creat 0.84 mg/dL 0.50-1.50 eGFR 67 mL/min/1.73m2 >59 Glucose 133 mg/dL 70-110 Osmo 293 280-295 Potassium 4.4 mmol/L 3.5-5.3 Sodium 141 mmol/L 134-148 BNP - 12/12/17 07:25 BNP 49.20 pg/ml 0.00-100.00 BMP - 12/25/17 08:12 Anion Gap 19 6-14 BUN 14 mg/dL 5-25 Calcium 10.0 mg/dL 8.3-10.4 Chloride 102 mmol/L 95-114 CO2 29 mEq/L 22-33 Creat 0.82 mg/dL 0.50-1.50 eGFR 69 mL/min/1.73m2 >59 Glucose 181 mg/dL 70-110 Osmo 304 280-295 Potassium 5.4 mmol/L 3.5-5.3 Sodium 145 mmol/L 134-148 CBC with Auto Diff - 12/27/17 07:15 Baso% 1.40 % 0.00-2.50 Eos 0.4 K/uL 0.0-0.7 Eos% 3.6 % 0.0-7.0 Hct 58.0 % 36.0-46.0 Hgb 18.2 g/dL 13.0-15.0 Lym 1.97 K/uL 0.60-3.40 Lym% 17.7 % 10.0-50.0 MCH 24.1 pg 27.0-31.0 MCHC 31.4 g/dL 32.0-36.0 MCV 76.8 fL 80.0-97.0 Mills% 7.0 % 0.0-12.0 MPV 9.7 fL 7.4-10.0 Dixie% 70.3 % 37.0-80.0 Plt 377 K/uL 150-400 RBC 7.55 M/uL 3.60-5.00 RDW 22.6 % 11.6-14.8 WBC 11.14 K/uL 5.00-10.00 Dixie 7.83 K/uL 2.00-6.90 Mills 0.8 K/uL 0.0-0.9 Baso 0.2 K/uL 0.0-0.2 Peripheral Smear - 12/27/17 07:15 Peripheral smear Sent to [place] [facility] for review Creatine Kinase - 05/06/18 03:10 CK 156 U/L 26-174 Urinalysis - 05/06/18 03:11 Icotest N/A Negative Urine Crystals Amorphous material: few/HPF Urine Volume Urine Volume Sufficient (10mL) Urine-Appearance Slightly Cloudy Clear Urine-Bacteria Rare Urine-Bilirubin Negative Negative Urine-Blood Trace-lysed Negative Urine-Color Yellow Colorless-Lt. Yellow Urine-Epithelial Cells 0-5/HPF Urine-Glucose Negative Negative Urine-Ketones Negative Negative Urine-Leukocytes Negative Negative Urine-Nitrite Negative Negative Urine-Other Culture to follow; cath urine specimen Urine-pH 6.0 5-8.5 Urine-Protein Trace Negative Urine-RBC 0-2/HPF Urine-Specific [place] 1.020 1.000-1.030 Urine-WBC 2-5/HPF Urobilinogen 0.2 0.2-1.0 Urine Culture - 05/06/18 03:50 PRELIM CULTURE RESULTS No Growth 24 hours FINAL CULTURE RESULTS No Growth 48 hours MEDIA PLATED Setup at 04:05 on 05/06/2018 CULTURE SOURCE cath urine Thyroid Stimulating Hormone - 05/06/18 09:33 TSH 0.64 mIU/mL 0.32-5.00 Magnesium - 05/07/18 09:40 Mg++ 1.4 mg/dL 1.6-2.6 BMP - 05/07/18 17:23 Anion Gap 14 6-14 BUN 26 mg/dL 5-25 Calcium 8.1 mg/dL 8.3-10.4 Chloride 105 mmol/L 95-114 CO2 23 mEq/L 22-33 Creat 0.87 mg/dL 0.50-1.50 eGFR 65 mL/min/1.73m2 >59 Glucose 112 mg/dL 70-110 Osmo 290 280-295 Potassium 3.5 mmol/L 3.5-5.3 Sodium 138 mmol/L 134-148 BNP - 05/08/18 05:25 BNP 74.00 pg/ml 0.00-100.00 Magnesium - 05/09/18 07:52 Mg++ 1.6 mg/dL 1.6-2.6 Lipid Panel - 05/22/18 08:01 C/HDL 2.6 3.7-6.7 Cholesterol 82 mg/dL 100-240 HDL 31 mg/dL 30-85 LDL-Calculated 21 mg/dL 0-100 Trig 150 mg/dL 35-160 VLDL 30 mg/dL 0-42 Comprehensive Metabolic Panel - 05/30/18 02:20 Albumin 4.3 g/dL 3.6-5.1 ALP 72 U/L 35-130 ALT 19 U/L 6-45 Anion Gap 17 6-14 AST 25 U/L 2-40 BUN 20 mg/dL 5-25 Calcium 9.0 mg/dL 8.3-10.4 Chloride 102 mmol/L 95-114 CO2 25 mEq/L 22-33 Creat 0.95 mg/dL 0.50-1.50 eGFR 58 mL/min/1.73m2 >59 Globulin 1.7 g/dL 2.3-3.5 Glucose 298 mg/dL 70-110 Osmo 302 280-295 Potassium 4.0 mmol/L 3.5-5.3 Sodium 140 mmol/L 134-148 TBil 1.1 mg/dL 0.2-1.2 TP 6.0 g/dL 6.0-8.3 Urinalysis - 05/30/18 03:36 Icotest N/A Negative Urine Volume Urine Volume Sufficient (10mL) Urine Yeast No Yeast present Urine-Appearance Slightly Cloudy Clear Urine-Bacteria Trace Urine-Bilirubin Negative Negative Urine-Blood Negative Negative Urine-Color Yellow Colorless-Lt. Yellow Urine-Epithelial Cells 0-5/HPF Urine-Glucose Negative Negative Urine-Ketones Negative Negative Urine-Leukocytes Negative Negative Urine-Mucus 3+ Urine-Nitrite Negative Negative Urine-Other Culture to follow (Cath sample) Urine-pH 6.0 5-8.5 Urine-Protein Negative Negative Urine-RBC 0-2/HPF Urine-Specific [place] 1.015 1.000-1.030 Urine-WBC 0-2/HPF Urobilinogen 0.2 0.2-1.0 Urine Culture - 05/30/18 03:36 PRELIM CULTURE RESULTS No Growth 24 hours FINAL CULTURE RESULTS No Growth 48 hours MEDIA PLATED Setup at 03:42 on 05/30/2018 CULTURE SOURCE cath Blood Culture - 05/30/18 09:15 PRELIM CULTURE RESULTS Blood Culture Negative, No Growth Day 1 FINAL CULTURE RESULTS Blood Culture Negative, No Growth Day 5 CULTURE SOURCE RIGHT HAND Blood Culture - 05/30/18 09:36 PRELIM CULTURE RESULTS Blood Culture Negative, No Growth Day 1 CULTURE SOURCE LEFT HAND CBC with Auto Diff - 05/31/18 07:15 Baso% 1.10 % 0.00-2.50 Eos 0.1 K/uL 0.0-0.7 Eos% 1.6 % 0.0-7.0 Hct 46.3 % 36.0-46.0 Hgb 13.6 g/dL 13.0-15.0 Lym 1.15 K/uL 0.60-3.40 Lym% 18.5 % 10.0-50.0 MCH 25.2 pg 27.0-31.0 MCHC 29.4 g/dL 32.0-36.0 MCV 85.7 fL 80.0-97.0 Mills% 5.3 % 0.0-12.0 MPV 9.8 fL 7.4-10.0 Dixie% 73.5 % 37.0-80.0 Plt 379 K/uL 150-400 RBC 5.40 M/uL 3.60-5.00 RDW 22.4 % 11.6-14.8 WBC 6.21 K/uL 5.00-10.00 Dixie 4.56 K/uL 2.00-6.90 Mills 0.3 K/uL 0.0-0.9 Baso 0.1 K/uL 0.0-0.2 BNP - 06/01/18 08:05 BNP 109.60 pg/ml 0.00-100.00 Urinalysis - 06/12/18 09:05 Icotest N/A Negative Urine Volume Urine Volume Sufficient (10mL) Urine-Appearance Clear Clear Urine-Bacteria Trace Urine-Bilirubin Negative Negative Urine-Blood Negative Negative Urine-Color Yellow Colorless-Lt. Yellow Urine-Epithelial Cells 0-5/HPF Urine-Glucose Negative Negative Urine-Ketones Negative Negative Urine-Leukocytes Negative Negative Urine-Nitrite Negative Negative Urine-Other Urine Saved if Culture Needed (48hrs from time of collection) Urine-pH 7.0 5-8.5 Urine-Protein Negative Negative Urine-RBC Negative Urine-Specific [place] 1.015 1.000-1.030 Urine-WBC Few/HPF Urobilinogen 0.2 E.U./dL 0.2-1.0 Comprehensive Metabolic Panel - 06/16/18 15:38 Albumin 3.8 g/dL 3.6-5.1 ALP 67 U/L 35-130 ALT 28 U/L 6-45 Anion Gap 18 6-14 AST 45 U/L 2-40 BUN 16 mg/dL 5-25 Calcium 10.1 mg/dL 8.3-10.4 Chloride 105 mmol/L 95-114 CO2 22 mEq/L 22-33 Creat 0.92 mg/dL 0.50-1.50 eGFR 61 mL/min/1.73m2 >59 Globulin 2.4 g/dL 2.3-3.5 Glucose 209 mg/dL 70-110 Osmo 298 280-295 Potassium 4.1 mmol/L 3.5-5.3 Sodium 141 mmol/L 134-148 TBil 1.1 mg/dL 0.2-1.2 TP 6.2 g/dL 6.0-8.3 Urinalysis - 06/16/18 16:23 Icotest N/A Negative Urine Volume Urine Volume Sufficient (10mL) Urine-Appearance Clear Clear Urine-Bacteria Negative Urine-Bilirubin Negative Negative Urine-Blood Negative Negative Urine-Color Yellow Colorless-Lt. Yellow Urine-Epithelial Cells 0-5/HPF Urine-Glucose Negative Negative Urine-Ketones Negative Negative Urine-Leukocytes Negative Negative Urine-Nitrite Negative Negative Urine-Other Urine Saved if Culture Needed (48hrs from time of collection) Urine-pH 7.5 5-8.5 Urine-Protein Negative Negative Urine-RBC Negative Urine-Specific [place] 1.015 1.000-1.030 Urine-WBC Rare/HPF Urobilinogen 0.2 E.U./dL 0.2-1.0 Urinalysis - 06/24/18 14:00 Icotest N/A Negative Urine Volume Urine Volume Sufficient (10mL) Urine Yeast No Yeast present Urine-Appearance Clear Clear Urine-Bacteria Negative Urine-Bilirubin Negative Negative Urine-Blood Negative Negative Urine-Color Yellow Colorless-Lt. Yellow Urine-Epithelial Cells 0-5/HPF Urine-Glucose Negative Negative Urine-Ketones Negative Negative Urine-Leukocytes Negative Negative Urine-Nitrite Negative Negative Urine-Other Urine Saved if Culture Needed (48hrs from time of collection) Urine-pH 7.5 5-8.5 Urine-Protein Negative Negative Urine-Specific [place] 1.015 1.000-1.030 Urine-WBC Nothing Seen on Microscopic Urobilinogen 0.2 E.U./dL 0.2-1.0 Encounters ACCT No. Visit Date/Time Discharge Status Pt. Type Provider Facility Loc./Unit Complaint [id number] 09/02/2018 07:19:00 09/02/2018 23:59:59 CLS Outpatient MAXWELL ECHEVERRIA MD [facility] CARD CAD, HTN [id number] 08/19/2018 09:34:00 08/19/2018 23:59:59 CLS Outpatient RENNY BLACKWELL MD [facility] ONC [id number] 05/28/2018 13:07:00 06/02/2018 00:01:00 DIS Outpatient RENNY BLACKWELL MD [facility] ONC [id number] 05/21/2018 15:01:00 05/21/2018 23:59:59 CLS Preadmit MAXWELL ECHEVERRIA MD [facility] CARD CAD,HTN,CAROTID STENOSIS ASYMPTOMATIC [id number] 02/12/2018 08:57:00 03/04/2018 13:10:00 DIS Outpatient RENNY BLACKWELL MD [facility] ONC [id number] 12/11/2016 13:04:00 12/11/2016 23:59:59 CLS Outpatient YASEMIN PUGH APRN [facility] RT SOB ON EXERTION R06.02 [id number] 09/05/2015 20:33:00 09/06/2015 06:00:00 DIS Outpatient YASEMIN PUGH APRN [facility] SLEEP ANNELISE,HYPERSOMNIA [id number] 08/25/2015 20:21:00 08/26/2015 06:15:00 DIS Outpatient REBEL GASTON DO [facility] SLEEP SNORING,ANNELISE, [id number] 09/23/2018 09:00:00 PEN Preadmit JACKI GREY, MAXWELL Langford [facility] CATH ABN STRESS TEST,CAD,HTN [id number] 06/24/2018 14:17:00 06/24/2018 23:59:00 DIS Outpatient Netta Mcmillan [id number] 06/16/2018 15:21:00 06/16/2018 18:30:00 [id number] 06/12/2018 09:47:00 06/12/2018 23:59:00 DIS Outpatient Netta Mcmillan [id number] 05/30/2018 01:45:00 06/03/2018 09:15:00 [id number] 05/27/2018 12:46:00 05/27/2018 23:59:00 DIS Outpatient MAXWELL ECHEVERRIA [id number] 05/22/2018 07:54:00 05/22/2018 23:59:00 DIS Outpatient MAXWELL ECHEVERRIA [id number] 05/06/2018 02:48:00 05/10/2018 13:30:00 DIS Inpatient [facility] MED-SURG [id number] 04/08/2018 11:22:00 04/08/2018 12:30:00 DIS Outpatient Daniel[facility] ER [id number] 02/21/2018 12:11:00 02/21/2018 23:59:00 DIS Outpatient SELF, [facility] [id number] 11/13/2017 00:00:00 01/26/2018 14:29:00 DIS Outpatient Netta Mcmillan [id number] 12/27/2017 07:14:00 12/27/2017 23:59:00 DIS Outpatient Netta Mcmillan [id number] 12/25/2017 08:09:00 12/25/2017 23:59:00 DIS Outpatient Netta Mcmillan [id number] 12/10/2017 10:52:00 12/12/2017 13:30:00 DIS Outpatient [facility] MED-SURG [id number] 12/03/2017 10:28:00 12/03/2017 23:59:00 DIS Outpatient Netta Mcmillan [id number] 11/10/2017 12:18:00 11/10/2017 23:59:00 DIS Outpatient Netta Mcmillan [id number] 09/09/2017 13:03:00 10/29/2017 14:15:00 DIS Outpatient Netta Mcmillan [id number] 10/25/2017 16:26:00 10/25/2017 21:25:00 [id number] 10/18/2017 10:26:00 10/18/2017 23:59:00 DIS Outpatient Netta Mcmillan [id number] 08/15/2017 11:33:00 08/15/2017 23:59:00 DIS Outpatient Netta Mcmillan [id number] 05/31/2017 00:00:00 06/19/2017 11:55:00 DIS Outpatient Netta Mcmillan [id number] 05/28/2017 11:58:00 05/30/2017 10:00:00 DIS Outpatient [facility] MED-SURG [id number] 05/25/2017 16:46:00 05/25/2017 23:59:00 DIS Outpatient Be Collins [id number] 05/01/2017 15:56:00 05/01/2017 23:59:00 DIS Outpatient Netta Mcmillan [id number] 03/19/2017 07:03:00 03/19/2017 23:59:00 DIS Outpatient Netta Mcmillan [id number] 02/26/2017 17:54:00 02/26/2017 23:59:00 DIS Outpatient Netta Mcmillan [id number] 02/22/2017 09:04:00 02/22/2017 23:59:00 DIS Outpatient MARIAJOSE DARELL [id number] 02/07/2017 22:23:00 02/09/2017 09:37:00 DIS Outpatient [facility] MED-SURG [id number] 02/05/2017 00:00:00 02/05/2017 09:58:00 DIS Outpatient Tomas Mistry [id number] 02/03/2017 12:47:00 02/03/2017 23:59:00 DIS Outpatient Tomas Mistry [id number] 01/24/2017 00:00:00 01/24/2017 23:59:00 DIS Outpatient Tomas Mistry [id number] 01/21/2017 13:01:00 01/21/2017 23:59:00 DIS Outpatient Tomas Mistry [id number] 11/26/2016 00:00:00 12/24/2016 14:20:00 DIS Outpatient VALDEZ CAVANAUGH [id number] 11/28/2016 09:33:00 11/28/2016 23:59:00 DIS Outpatient Netta Mcmillan [id number] 11/21/2016 13:12:00 11/21/2016 13:12:00 CAN Outpatient Netta Mcmillan [id number] 11/14/2016 09:54:00 11/14/2016 23:59:00 DIS Outpatient Netta Mcmillan [id number] 08/27/2016 11:27:00 11/01/2016 11:40:00 DIS Outpatient VALDEZ CAVANAUGH [id number] 10/31/2016 07:10:00 10/31/2016 23:59:00 DIS Outpatient Netta Mcmillan [id number] 10/19/2016 18:52:00 10/19/2016 19:54:00 DIS Outpatient [facility] ER [id number] 08/27/2016 10:11:00 08/27/2016 23:59:00 DIS Outpatient VALDEZ CAVANAUGH [id number] 08/06/2016 15:27:00 08/06/2016 23:59:00 DIS Outpatient MACIEL FLORENCIA [id number] 07/11/2016 11:36:00 07/11/2016 23:59:00 DIS Outpatient Netta Mcmillan [id number] 07/01/2016 14:45:00 07/01/2016 16:19:00 [id number] 06/16/2018 18:08:25 Document Registration [id number] 05/13/2018 10:19:20 Document Registration [id number] 10/19/2016 19:38:11 Document Registration [id number] 11/10/2017 12:18:00 Document Registration
[2018-09-23] MEDS ORDERED: NS IV 1000 ML 1,000 ML IV SCH (07:00)
--- NOTE | 2018-09-23 07:30 | Diagnostic Imaging Report ---
INDICATION: Preop. FINDINGS: Portable chest shows lungs to be well-aerated and clear. The heart is not enlarged. No pulmonary edema. No pneumothorax or pleural effusion. No bony abnormalities. IMPRESSION: Normal portable chest. Dictated by: Dictated on workstation # [id number]
[2018-09-23 07:48] LABS: HEMOGLOBIN 12.4 G/DL (11.5-16.0); MEAN PLATELET VOLUME 9.6 FL (7.4-10.4); RED CELL DISTRIBUTION WIDTH 22.3 % (10.0-14.5); WHITE BLOOD COUNT 11.3 10^3/uL (4.3-11.0)
--- NOTE | 2018-09-23 07:50 | Cardiac Procedure Note-CS/ASA ---
Pre-Procedure Note Pre-Op Procedure Note H&P Reviewed The H&P was reviewed, patient examined and no changes noted. Date H&P Reviewed: September 23, 2018 Time H&P Reviewed: 07:50 Conscious Sedation Pre-Proced Time 07:50 ASA Score 3 For ASA 3 and 4: Consider anesthesia and medical clearance. Also, for patients with a history of failed moderate sedation consider anesthesia. Airway Lungs Heart ASA score ASA 1: a normal healthy patient ASA 2: a patient with a mild systemic disease (mid diabetes, controlled hypertension, obesity x ASA 3: a patient with a severe systemic disease that limits activity (angina , COPD, prior Myocardial infarction) ASA 4: a patient with an incapacitating disease that is a constant threat to life (CHF, renal failure) ASA 5: a moribund patient not expected to survive 24 hrs. (ruptured aneurysm) ASA 6: a declared brain- patient whose organs are being harvested. For emergent operations, add the letter E after the classification Mallampati Classification Grade 3 Sedation Plan Analgesia, Amnesia, Plan communicated to team members, Discussed options with patient/fam, Discussed risks with patient/fam The patient is an appropriate candidate to undergo the planned procedure, sedation, and anesthesia. The patient immediately re-assessed prior to indication. MAXWELL ECHEVERRIA MD September 23, 2018 07:50
[2018-09-23] MEDS ORDERED: OMG1KC PO ×2 (07:58)
[2018-09-23] MEDS ORDERED: [UNRECOGNIZED DRUG - OTHER] PO ×2 (07:58)
[2018-09-23] MEDS ORDERED: ASPI-586 PO ×2 (07:58)
[2018-09-23] MEDS ORDERED: ROPI0.5T PO ×2 (07:58)
[2018-09-23] MEDS ORDERED: GABA-488 PO ×2 (07:58)
[2018-09-23] MEDS ORDERED: METF-397 PO ×4 (07:58)
[2018-09-23] MEDS ORDERED: LOSA1TAB3 PO ×2 (07:58)
[2018-09-23] MEDS ORDERED: ATOR40TA70 PO ×2 (07:58)
[2018-09-23] MEDS ORDERED: ACET325T49 PO ×2 (07:58)
[2018-09-23] MEDS ORDERED: ISOS120T9 PO ×2 (07:58)
[2018-09-23] MEDS ORDERED: INSU100I14 SQ ×2 (07:58)
[2018-09-23] MEDS ORDERED: LORA10TA76 PO ×2 (07:58)
[2018-09-23] MEDS ORDERED: INSU100V6 SQ ×2 (07:58)
[2018-09-23] MEDS ORDERED: MULT-178 PO ×2 (07:58)
[2018-09-23 08:00] LABS: INR 1.1 (0.8-1.4); PROTHROMBIN TIME PATIENT 14.3 SEC (12.2-14.7)
[2018-09-23 08:12] LABS: ALANINE AMINOTRANSFERASE 15 U/L (0-55); ALKALINE PHOSPHATASE 87 U/L (40-136); BILIRUBIN,TOTAL 0.7 MG/DL (0.1-1.0); BUN/CREATININE RATIO 14; CALCIUM 9.5 MG/DL (8.5-10.1); CARBON DIOXIDE 26 MMOL/L (21-32); CHLORIDE 105 MMOL/L (98-107); CHOLESTEROL 101 MG/DL (< 200); CREATININE SERUM 0.84 MG/DL (0.60-1.30); GFR ESTIMATED > 60; HDL CHOLESTEROL 32 MG/DL (40-60); POTASSIUM 4.1 MMOL/L (3.6-5.0); SODIUM 142 MMOL/L (135-145); TOTAL PROTEIN 6.3 GM/DL (6.4-8.2); TRIGLYCERIDES 114 MG/DL (<150); VLDL CHOLESTEROL 23 MG/DL (5-40)
[2018-09-23 08:24] LABS: GLUCOSE 433 MG/DL (70-105)
[2018-09-23] MEDS ORDERED: inSUlin (REGULAR) HUMAN 1 UNIT/0.01 ML (CHARGE PER UNIT) ONE (08:26)
[2018-09-23] MEDS ORDERED: fentaNYL INJECTION 100 MCG/2 ML AMP ONE (08:36)
[2018-09-23] MEDS ORDERED: MIDAZOLAM 5 MG/5 ML (VERSED) VIAL ONE (08:36)
[2018-09-23] MEDS ORDERED: inSUlin (REGULAR) HUMAN 1 UNIT/0.01 ML (CHARGE PER UNIT) SC ONE (08:45)
[2018-09-23] MEDS ORDERED: HEParin 1000 UNIT/ML (10ML VIAL) FOR BOLUS ONE (09:22)
[2018-09-23] MEDS ORDERED: TICAGRELOR 90 MG TABLET (BRILINTA) PO ONE (09:58)
[2018-09-23] MEDS ORDERED: ASPIRIN 325 MG (5 GR) TABLET ONE (09:58)
[2018-09-23] MEDS ORDERED: ACETAMINOPHEN 325 MG TABLET PO PRN (10:00)
[2018-09-23] MEDS ORDERED: PATIENT MAY USE OWN MEDS, ALL PO SCH (10:00)
--- NOTE | 2018-09-23 10:11 | Cardiac Cath Report ---
Cardiac Cath Report Physician (s)/Securities Research Analyst (s) Physician MAXWELL ECHEVERRIA MD Pre-Procedure Diagnosis Pre-Procedure Diagnosis: coronary artery disease Post-Procedure Note Procedure Start Date: September 23, 2018 Name of Procedure: left heart catheterization Stent to the LAD Findings/Procedure Note PROCEDURE NOTE: 67-year-old lady with history of coronary artery disease, hypertension, hyperlipidemia and diabetes mellitus, has an abnormal stress test, scheduled for cardiac catheterization possible PTCA. After explaining the procedure to the patient, all pros and cons were explained , all questions were answered. The patient signed the consent and then she was placed on the cardiac catheterization laboratory. Groin was prepped SL fashion local anesthesia was used. Sheath placed in the right femoral artery. Ryan right and left catheter were used to access the coronary system. Pigtail was used to access the left ventricular cavity. Left ventriculogram was not done Patient was given 6000 units of heparin, FL 3.5 guide was used Axid left carotid system, BMW wire was advanced through the LAD patient has severe stenosis within the stent in the mid LAD and subtotal occlusion distally. The wire was advanced then the wire was sufficient to stop the flow in the LAD. Balloon angioplasty was done initially with 2.520 mm emerge then I proceeded with stenting distal to the old stent using Oralia 2.5 x 18 mm expanded to 3 mm distally and 3.1 mm proximally, multiple inflation within the old stent due to recoil and in-stent restenosis. Results were good At the end of the procedure the sheath was removed. Closure device was used FINDINGS: Hemodynamics LV 153/15, end-diastolic pressure of 15 Aorta 132/71 mean of 80 ANATOMY: Left Main is free of obstructive disease Left Anterior Descending has severe stenosis within the stent in the mid LAD and subtotal occlusion just at the and distally of the stent. Multiple balloon angioplasty then stent deployment using overlapping stent with the old one extending distally using Oralia 2.5 x 18 mm expanded to 3.0 mm distally and 3.1 mm proximally, post dilatation with noncompliant balloon using Quantum 3.0 X 15 mm up to 16 atmospheres with good results, mild recall within the old stent. Diagonal artery, has ostial stent that is patent with mild disease distally Left Circumflex is moderate in size with mild disease nonobstructive disease, the first obtuse marginal branch has ostial 50 percent stenosis Right Coronory Artery is dominant artery with mild disease nonobstructive disease LV Gram was not done, pressure was measured CONCLUSION: 1. Severe in-stent restenosis in the mid LAD with plaques intervention using balloon angioplasty then deployment of overlapping stents using Oralia 2.5 x 18 mm expanded to 3.0 distally and 3.1 mm proximally at the overlap area with the old stent, severe in-stent restenosis with multiple balloon angioplasty using Quantum NC 3.0 x 15 mm expanded to 3.1 mm 16 joanna with excellent results distally , mod recalled in them proximal portion of the old stent 2. Patent stent in the ostial first diagonal ranch, mild disease distally 3. 50 percent ostial ramus intermedius/high obtuse marginal branch stenosis nonobstructive disease 4. Mild disease in the circumflex and RCA system 5. Normal left ventricular end-diastolic pressure DISCUSSION AND RECOMMENDATION: patient was started on aspirin and Brilinta. Continue to maximize medical therapy Anesthesia Type: Conscious Sedation Estimated blood loss (mL): 25 ml Contrast Amount: 137 ml Total Radiation Dose: 1546 mGy Post-Procedure Diagnosis Post-operative diagnosis: Unstable angina Coronary artery disease Hypertension Hyperlipidemia MAXWELL ECHEVERRIA MD September 23, 2018 10:11
[2018-09-23] MEDS ORDERED: inSUlin ASPART (NovoLOG) 1 UNIT/0.01 ML (CHARGE PER UNIT) ONE (10:46)
[2018-09-23] MEDS: NS IV 1000 ML 1,000 ML IV SCH ×2 (10:49→20:00)
[2018-09-23] MEDS ORDERED: meTOprolol 5 MG/5 ML (LOPRESSOR) VIAL ONE (12:31)
[2018-09-23] MEDS ORDERED: meTOprolol 5 MG/5 ML (LOPRESSOR) VIAL IV ONE (12:45)
[2018-09-23] MEDS: GABAPENTIN 300 MG (NEURONTIN) CAP PO SCH ×2 (14:12→20:56)
[2018-09-23] MEDS ORDERED: cloNIDine 0.1 MG (CATAPRES) TAB ONE (15:14)
[2018-09-23] MEDS ORDERED: cloNIDine 0.1 MG (CATAPRES) TAB PO ONE (15:15)
[2018-09-23] MEDS: TICAGRELOR 90 MG TABLET (BRILINTA) PO SCH (20:55)
[2018-09-23] MEDS ORDERED: ROPINIROLE HCL 0.5 MG PO SCH (21:00)
[2018-09-23] MEDS ORDERED: ATORVASTATIN 80 MG (LIPITOR) TABLET PO SCH (21:00)
--- NOTE | 2018-09-23 22:05 | NUR ---
CALLED DR. PRECIADO AND INFORMED HIM THAT PATIENT'S BLOOD GLUCOSE WAS 517. RECEIVED ORDERS TO ADMINISTER 12 UNITS AND CHANGE TO SLIDING SCALE B. WILL CONTINUE TO MONITOR.
[2018-09-23] MEDS ORDERED: inSUlin ASPART (NovoLOG) 1 UNIT/0.01 ML (CHARGE PER UNIT) SC SCH (22:15)
[2018-09-24] VITALS: BP 120/40
[2018-09-24 00:30] VITALS: BP 148/52
[2018-09-24 04:00] VITALS: BP 122/56
[2018-09-24 04:23] LABS: MEAN PLATELET VOLUME 9.7 FL (7.4-10.4); RED CELL DISTRIBUTION WIDTH 22.3 % (10.0-14.5); WHITE BLOOD COUNT 13.1 10^3/uL (4.3-11.0)
[2018-09-24 04:38] LABS: BUN/CREATININE RATIO 14; CALCIUM 8.8 MG/DL (8.5-10.1); CARBON DIOXIDE 20 MMOL/L (21-32); CHLORIDE 107 MMOL/L (98-107); CREATININE SERUM 0.78 MG/DL (0.60-1.30); GFR ESTIMATED > 60; GLUCOSE 327 MG/DL (70-105); SODIUM 138 MMOL/L (135-145)
[2018-09-24] MEDS: NS IV 1000 ML 1,000 ML IV SCH (05:47)
--- NOTE | 2018-09-24 07:37 | Cardiology Progress Note ---
Subjective Date Seen by Provider: September 24, 2018 Time Seen by Provider: 07:35 Subjective/Events-last exam patient had a good night sleep, denied any chest pain, groin is healing well Review of Systems General: No Chills, No Night Sweats, No Fatigue, No Malaise, No Appetite, No Other HEENT: No Head Aches, No Visual Changes, No Eye Pain, No Ear Pain, No Dysphasia , No Sinus Congestion, No Post Nasal Drip, No Sore Throat, No Other Pulmonary: No Dyspnea, No Cough, No Pleuritic Chest Pain, No Other Cardiovascular: No: Chest Pain, Palpitations, Orthopnea, Paroxysmal Noc. Dyspnea, Edema, Lt Headedness, Other Objective-Cardiology Exam Last Set of Vital Signs Vital Signs 09/24/18 09/24/18 04:00 07:00 Temp 97.7 Pulse 98 Resp 16 B/P (MAP) 122/56 (78) Pulse Ox 94 O2 Delivery Room Air Capillary Refill : Less Than 3 Seconds General: Alert, Oriented X3, Cooperative HEENT: Atraumatic, PERRLA Neck: Supple, No JVD, No Thyromegaly Lungs: Clear to Auscultation, Normal Air Movement Heart: Regular Rate, Normal S1, Normal S2, No Murmurs Abdomen: Normal Bowel Sounds, Soft, No Tenderness, No Hepatosplenomegaly, No Masses Extremities: No Clubbing, No Cyanosis, No Edema, Normal Pulses, No Tenderness/ Swelling Skin: No Rashes, No Breakdown, No Significant Lesion Neuro: Normal Gait, Normal Speech, Strength at 5/5 X4 Ext, Normal Tone, Sensation Intact Psych/Mental Status: Mental Status NL, Mood NL Results Lab Laboratory Tests 09/23/18 07:42 09/24/18 04:00 A/P-Cardiology Admission Diagnosis Coronary artery disease Diabetes mellitus Hypertension Hyperlipidemia Assessment/Plan Coronary artery disease: 1. Severe in-stent restenosis in the mid LAD with plaques intervention using balloon angioplasty then deployment of overlapping stents using Oralia 2.5 x 18 mm expanded to 3.0 distally and 3.1 mm proximally at the overlap area with the old stent, severe in-stent restenosis with multiple balloon angioplasty using Quantum NC 3.0 x 15 mm expanded to 3.1 mm 16 joanna with excellent results distally , mod recalled in them proximal portion of the old stent 2. Patent stent in the ostial first diagonal ranch, mild disease distally 3. 50 percent ostial ramus intermedius/high obtuse marginal branch stenosis nonobstructive disease 4. Mild disease in the circumflex and RCA system 5. Normal left ventricular end-diastolic pressure Diabetes mellitus, poorly controlled, she will contact Dr. Mcmillan to adjust her medication Hypertension, continue current medication Hyperlipidemia, continue current medication Patient was educated in length about compliance with medication taking aspirin and Plavix MAXWELL ECHEVERRIA MD September 24, 2018 07:36
[2018-09-24] MEDS ORDERED: TICA90TA PO ×2 (07:38)
[2018-09-24] MEDS: GABAPENTIN 300 MG (NEURONTIN) CAP PO SCH (07:39)
--- NOTE | 2018-09-24 07:39 | Discharge Inst-Post CATH ---
Discharge Inst-CATH/EP Post Cardiac Cath/EP D/C Inst Follow Up/Plan Hold metformin for [address] Busch's office in 2-4 weeks <b>CARDIAC CATH/EP PROCEDURE DISCHARGE INSTRUCTIONS</b> Cardiac Rehab Please be expecting a follow up call from Cardiac Rehab within in one week. ACTIVITY * Go Home directly and rest. * Limit activity of the leg (or wrist if it was used) for 7 days including aerobics, swimming, jogging, bicycling, etc. * Restrict stair-climbing for 7 days if possible, if not, climb up with your non -cath leg, then bring together on the same step. * Avoid lifting, pushing, pulling or excessive movement of the affected extremity for 7 days. * Customary sexual activity may be resumed after 2 days-use caution not to use a position that strains or causes pain to the affected extremity. * No driving for 24 hours. * NO SMOKING. * Avoid straining for bowel movements for 7 days. * Gentle walking on level ground is allowed. * Returning to work will depend on the type of procedure and the results. Your doctor will discuss this with you. CALL YOUR DOCTOR FOR ANY OF THE FOLLOWING: *If bleeding from the puncture site occurs- Apply gentle pressure to site with clean cloth and call your doctor or EMS. * If a knot or lump forms under the skin, increases in size, or causes pain. * If bruising appears to be worsening or moving further down your leg instead of disappearing. * Temperature above 101 F. CARE OF YOUR GROIN INCISION; * Bruising or purple discoloration of the skin near the puncture site is common. * You may shower only, no bathtub bathing for 5 days. Be careful to avoid slipping as your leg may feel stiff. * If a closure device was used on your femoral artery, please see the attached guide regarding care of the device and your leg. * Leave dressing on FOR 24 hours. CARE OF YOUR WRIST INCISION; * Bruising or purple discoloration of the skin near the puncture site is common. * You may shower. * DO NOT submerge wrist. * Leave dressing on FOR 24 hours. MAXWELL BUSCH MD September 24, 2018 07:39
[2018-09-24] MEDS: TICAGRELOR 90 MG TABLET (BRILINTA) PO SCH (07:45)
[2018-09-24 08:00] VITALS: BP 122/56
[2018-09-24] MEDS ORDERED: ASPIRIN E.C. 81 MG (ECOTRIN) TAB PO SCH (09:00)
[2018-09-24] MEDS ORDERED: ISOSORBIDE MONONITRATE 120 MG PO SCH (09:00)
[2018-09-24] MEDS ORDERED: LOSARTAN PO SCH (09:00)
[2018-09-24] MEDS ORDERED: LORATADINE (CLARITIN) 10 MG TAB PO SCH (09:00)
[2018-09-24] MEDS ORDERED: HYDROCHLOROTHIAZIDE PO SCH (09:00)
[2018-09-24] MEDS ORDERED: OMEGA 3 (FISH OIL) 1000 MG CAP PO SCH (09:00)
[2018-09-24] MEDS ORDERED: WOMEN S MULTIVITAMIN PO SCH (09:00)
== END 2018-09-24 08:50 | disposition home or self-care (01) ==
LOC: CATH 06:54 → ICU 10:15 → CATH 09-24 08:50
PROVIDERS: ATTEND Internal Medicine Cardiovascular Disease
DX: I25.110 Atherosclerotic heart disease of native coronary artery with unstable angina pectoris (principal); I10 Essential (primary) hypertension; E78.5 Hyperlipidemia, unspecified; G47.33 Obstructive sleep apnea (adult) (pediatric); R94.39 Abnormal result of other cardiovascular function study; M19.91 Primary osteoarthritis, unspecified site; R09.02 Hypoxemia; I65.29 Occlusion and stenosis of unspecified carotid artery; D45 Polycythemia vera; R06.83 Snoring; E11.40 Type 2 diabetes mellitus with diabetic neuropathy, unspecified; Z95.5 Presence of coronary angioplasty implant and graft; Z87.891 Personal history of nicotine dependence; Z88.5 Allergy status to narcotic agent; Z79.899 Other long term (current) drug therapy
CPT/HCPCS: 36415; 71045; 80048; 80053; 80061; 82962; 85027; 85347; 85610; 85730; 87081; 93005; 93458

== ENCOUNTER 2019-01-07 10:45 | Outpatient (RCR) | payer MEDICARE ==
[2018-10-14 10:18] LABS: BASOPHILS # (AUTO) 0.2 10^3/uL (0.0-0.1); BASOPHILS % (AUTO) 2 % (0-10); EOSINOPHILS # (AUTO) 0.2 10^3/uL (0.0-0.3); EOSINOPHILS % (AUTO) 2 % (0-10); HEMATOCRIT 42 % (35-52); HEMOGLOBIN 12.2 G/DL (11.5-16.0); LYMPHOCYTES # (AUTO) 1.2 X 10^3 (1.0-4.0); LYMPHOCYTES % (AUTO) 12 % (12-44); MEAN CORPUSCULAR HEMOGLOBIN 18 PG (25-34); MEAN CORPUSCULAR HGB CONC 29 G/DL (32-36); MEAN CORPUSCULAR VOLUME 60 FL (80-99); MEAN PLATELET VOLUME 9.5 FL (7.4-10.4); MONOCYTES # (AUTO) 0.5 X 10^3 (0.0-1.0); MONOCYTES % (AUTO) 5 % (0-12); NEUTROPHILS # (AUTO) 8.2 X 10^3 (1.8-7.8); NEUTROPHILS % (AUTO) 80 % (42-75); PLATELET COUNT 582 10^3/uL (130-400); RED CELL DISTRIBUTION WIDTH 23.3 % (10.0-14.5); WHITE BLOOD COUNT 10.3 10^3/uL (4.3-11.0)
[2018-10-14 10:40] LABS: BILIRUBIN,TOTAL 0.6 MG/DL (0.1-1.0); CREATININE SERUM 0.95 MG/DL (0.60-1.30); TOTAL PROTEIN 6.4 GM/DL (6.4-8.2)
[2018-11-11 09:37] LABS: BASOPHILS # (AUTO) 0.2 10^3/uL (0.0-0.1); BASOPHILS % (AUTO) 2 % (0-10); EOSINOPHILS # (AUTO) 0.2 10^3/uL (0.0-0.3); EOSINOPHILS % (AUTO) 2 % (0-10); HEMATOCRIT 44 % (35-52); HEMOGLOBIN 12.6 G/DL (11.5-16.0); LYMPHOCYTES # (AUTO) 1.3 X 10^3 (1.0-4.0); LYMPHOCYTES % (AUTO) 12 % (12-44); MEAN CORPUSCULAR HEMOGLOBIN 17 PG (25-34); MEAN CORPUSCULAR HGB CONC 29 G/DL (32-36); MEAN CORPUSCULAR VOLUME 60 FL (80-99); MEAN PLATELET VOLUME 9.8 FL (7.4-10.4); MONOCYTES # (AUTO) 0.6 X 10^3 (0.0-1.0); MONOCYTES % (AUTO) 5 % (0-12); NEUTROPHILS # (AUTO) 8.9 X 10^3 (1.8-7.8); NEUTROPHILS % (AUTO) 79 % (42-75); PLATELET COUNT 546 10^3/uL (130-400); WHITE BLOOD COUNT 11.2 10^3/uL (4.3-11.0)
[2018-11-11 10:02] LABS: ALBUMIN 4.1 GM/DL (3.2-4.5); BILIRUBIN,TOTAL 0.6 MG/DL (0.1-1.0); CALCIUM 9.6 MG/DL (8.5-10.1); CREATININE SERUM 1.06 MG/DL (0.60-1.30); POTASSIUM 5.2 MMOL/L (3.6-5.0); TOTAL PROTEIN 6.5 GM/DL (6.4-8.2)
[2018-12-10 10:33] LABS: BASOPHILS # (AUTO) 0.2 10^3/uL (0.0-0.1); BASOPHILS % (AUTO) 2 % (0-10); EOSINOPHILS # (AUTO) 0.3 10^3/uL (0.0-0.3); EOSINOPHILS % (AUTO) 3 % (0-10); HEMATOCRIT 45 % (35-52); HEMOGLOBIN 12.8 G/DL (11.5-16.0); LYMPHOCYTES # (AUTO) 1.4 X 10^3 (1.0-4.0); LYMPHOCYTES % (AUTO) 12 % (12-44); MEAN CORPUSCULAR HEMOGLOBIN 17 PG (25-34); MEAN CORPUSCULAR HGB CONC 29 G/DL (32-36); MEAN CORPUSCULAR VOLUME 60 FL (80-99); MEAN PLATELET VOLUME 9.4 FL (7.4-10.4); MONOCYTES # (AUTO) 0.4 X 10^3 (0.0-1.0); MONOCYTES % (AUTO) 4 % (0-12); NEUTROPHILS % (AUTO) 80 % (42-75); PLATELET COUNT 575 10^3/uL (130-400); RED CELL DISTRIBUTION WIDTH 24.8 % (10.0-14.5); WHITE BLOOD COUNT 11.3 10^3/uL (4.3-11.0)
[2018-12-10 10:47] LABS: ALBUMIN 4.1 GM/DL (3.2-4.5); BILIRUBIN,TOTAL 0.8 MG/DL (0.1-1.0); CALCIUM 9.9 MG/DL (8.5-10.1); CREATININE SERUM 0.96 MG/DL (0.60-1.30); POTASSIUM 4.4 MMOL/L (3.6-5.0); TOTAL PROTEIN 6.3 GM/DL (6.4-8.2)
[~2019-01-07 10:45] MED LIST changes: +ACET325T49 PO; +ASPI-586 PO; +ATOR40TA70 PO; +GABA-488 PO; +INSU100I14 SQ; +INSU100V6 SQ; +ISOS120T9 PO; +LORA10TA76 PO; +LOSA1TAB3 PO; +METF-397 PO; +MULT-178 PO; +OMG1KC PO; -REGADENOSON 0.4 MG/5 ML SYR (LEXISCAN) IV ONE; +ROPI0.5T PO; +TICA90TA PO; +[UNRECOGNIZED DRUG - OTHER] PO
[2019-01-07 11:19] LABS: BASOPHILS # (AUTO) 0.2 10^3/uL (0.0-0.1); BASOPHILS % (AUTO) 2 % (0-10); EOSINOPHILS # (AUTO) 0.3 10^3/uL (0.0-0.3); EOSINOPHILS % (AUTO) 3 % (0-10); HEMATOCRIT 40 % (35-52); HEMOGLOBIN 11.5 G/DL (11.5-16.0); LYMPHOCYTES # (AUTO) 1.3 X 10^3 (1.0-4.0); LYMPHOCYTES % (AUTO) 13 % (12-44); MEAN CORPUSCULAR HEMOGLOBIN 18 PG (25-34); MEAN CORPUSCULAR HGB CONC 29 G/DL (32-36); MEAN CORPUSCULAR VOLUME 61 FL (80-99); MEAN PLATELET VOLUME 9.4 FL (7.4-10.4); MONOCYTES # (AUTO) 0.5 X 10^3 (0.0-1.0); MONOCYTES % (AUTO) 4 % (0-12); NEUTROPHILS # (AUTO) 8.3 X 10^3 (1.8-7.8); NEUTROPHILS % (AUTO) 79 % (42-75); PLATELET COUNT 571 10^3/uL (130-400); RED CELL DISTRIBUTION WIDTH 24.3 % (10.0-14.5); WHITE BLOOD COUNT 10.6 10^3/uL (4.3-11.0)
[2019-01-07 11:42] LABS: ALANINE AMINOTRANSFERASE 18 U/L (0-55); ALBUMIN 3.7 GM/DL (3.2-4.5); ALKALINE PHOSPHATASE 84 U/L (40-136); BILIRUBIN,TOTAL 0.6 MG/DL (0.1-1.0); BUN/CREATININE RATIO 16; CALCIUM 8.9 MG/DL (8.5-10.1); CARBON DIOXIDE 22 MMOL/L (21-32); CHLORIDE 106 MMOL/L (98-107); CREATININE SERUM 0.91 MG/DL (0.60-1.30); GFR ESTIMATED > 60; POTASSIUM 4.6 MMOL/L (3.6-5.0); SODIUM 140 MMOL/L (135-145); TOTAL PROTEIN 5.9 GM/DL (6.4-8.2)
[2019-01-07 11:54] LABS: GLUCOSE 446 MG/DL (70-105)
== END 2019-01-12 | disposition home or self-care (01) ==
LOC: ONC 10:45
PROVIDERS: ATTEND Internal Medicine Hematology & Oncology
DX: D75.1 Secondary polycythemia (principal); Z87.891 Personal history of nicotine dependence; I25.10 Atherosclerotic heart disease of native coronary artery without angina pectoris; I10 Essential (primary) hypertension; R09.02 Hypoxemia; G47.33 Obstructive sleep apnea (adult) (pediatric); R06.83 Snoring; E11.9 Type 2 diabetes mellitus without complications; Z79.899 Other long term (current) drug therapy
CPT/HCPCS: 36415; 80053; 85025; 99195; 99213

== ENCOUNTER 2019-02-23 20:24 | Outpatient (CLI) | payer MEDICARE | END 2019-02-24 06:05 | disposition home or self-care (01) | LOC: SLEEP 20:24 | PROVIDERS: ATTEND Nurse Practitioner Family | DX: G47.33 Obstructive sleep apnea (adult) (pediatric) (principal); G47.36 Sleep related hypoventilation in conditions classified elsewhere; G47.61 Periodic limb movement disorder; E66.01 Morbid (severe) obesity due to excess calories | CPT/HCPCS: 95810 ==

== ENCOUNTER 2019-03-18 13:36 | Outpatient (RCR) | payer MEDICARE ==
[2019-01-21 14:18] LABS: BASOPHILS # (AUTO) 0.2 10^3/uL (0.0-0.1); BASOPHILS % (AUTO) 1 % (0-10); EOSINOPHILS # (AUTO) 0.3 10^3/uL (0.0-0.3); EOSINOPHILS % (AUTO) 3 % (0-10); HEMATOCRIT 44 % (35-52); HEMOGLOBIN 12.7 G/DL (11.5-16.0); LYMPHOCYTES # (AUTO) 1.6 X 10^3 (1.0-4.0); LYMPHOCYTES % (AUTO) 13 % (12-44); MEAN CORPUSCULAR HEMOGLOBIN 18 PG (25-34); MEAN CORPUSCULAR HGB CONC 29 G/DL (32-36); MEAN CORPUSCULAR VOLUME 61 FL (80-99); MEAN PLATELET VOLUME 9.8 FL (7.4-10.4); MONOCYTES # (AUTO) 0.6 X 10^3 (0.0-1.0); MONOCYTES % (AUTO) 5 % (0-12); NEUTROPHILS # (AUTO) 10.1 X 10^3 (1.8-7.8); NEUTROPHILS % (AUTO) 79 % (42-75); PLATELET COUNT 606 10^3/uL (130-400); RED CELL DISTRIBUTION WIDTH 24.8 % (10.0-14.5); WHITE BLOOD COUNT 12.8 10^3/uL (4.3-11.0)
[2019-01-21 14:40] LABS: ALBUMIN 4.2 GM/DL (3.2-4.5); BILIRUBIN,TOTAL 0.7 MG/DL (0.1-1.0); CALCIUM 9.6 MG/DL (8.5-10.1); CREATININE SERUM 1.03 MG/DL (0.60-1.30); POTASSIUM 4.7 MMOL/L (3.6-5.0); TOTAL PROTEIN 6.6 GM/DL (6.4-8.2)
[2019-02-04 10:26] LABS: BASOPHILS # (AUTO) 0.2 10^3/uL (0.0-0.1); BASOPHILS % (AUTO) 2 % (0-10); EOSINOPHILS # (AUTO) 0.3 10^3/uL (0.0-0.3); EOSINOPHILS % (AUTO) 2 % (0-10); HEMATOCRIT 42 % (35-52); HEMOGLOBIN 12.2 G/DL (11.5-16.0); LYMPHOCYTES # (AUTO) 1.3 X 10^3 (1.0-4.0); LYMPHOCYTES % (AUTO) 11 % (12-44); MEAN CORPUSCULAR HEMOGLOBIN 18 PG (25-34); MEAN CORPUSCULAR HGB CONC 29 G/DL (32-36); MEAN CORPUSCULAR VOLUME 62 FL (80-99); MEAN PLATELET VOLUME 10.2 FL (7.4-10.4); MONOCYTES # (AUTO) 0.5 X 10^3 (0.0-1.0); MONOCYTES % (AUTO) 5 % (0-12); NEUTROPHILS # (AUTO) 9.5 X 10^3 (1.8-7.8); NEUTROPHILS % (AUTO) 81 % (42-75); PLATELET COUNT 548 10^3/uL (130-400); RED CELL DISTRIBUTION WIDTH 25.2 % (10.0-14.5); WHITE BLOOD COUNT 11.8 10^3/uL (4.3-11.0)
[2019-02-04 10:28] LABS: SMEAR SCAN COMMENT YES
[2019-02-04 10:48] LABS: ALBUMIN 4.1 GM/DL (3.2-4.5); BILIRUBIN,TOTAL 0.6 MG/DL (0.1-1.0); CREATININE SERUM 0.95 MG/DL (0.60-1.30); POTASSIUM 4.6 MMOL/L (3.6-5.0); TOTAL PROTEIN 6.3 GM/DL (6.4-8.2)
[2019-02-18 14:41] LABS: BASOPHILS # (AUTO) 0.1 10^3/uL (0.0-0.1); BASOPHILS % (AUTO) 1 % (0-10); EOSINOPHILS # (AUTO) 0.2 10^3/uL (0.0-0.3); EOSINOPHILS % (AUTO) 3 % (0-10); HEMATOCRIT 41 % (35-52); HEMOGLOBIN 11.7 G/DL (11.5-16.0); LYMPHOCYTES # (AUTO) 1.5 X 10^3 (1.0-4.0); LYMPHOCYTES % (AUTO) 20 % (12-44); MEAN CORPUSCULAR HEMOGLOBIN 19 PG (25-34); MEAN CORPUSCULAR HGB CONC 29 G/DL (32-36); MEAN CORPUSCULAR VOLUME 65 FL (80-99); MEAN PLATELET VOLUME 10.2 FL (7.4-10.4); MONOCYTES # (AUTO) 0.4 X 10^3 (0.0-1.0); MONOCYTES % (AUTO) 6 % (0-12); NEUTROPHILS # (AUTO) 5.3 X 10^3 (1.8-7.8); NEUTROPHILS % (AUTO) 71 % (42-75); PLATELET COUNT 404 10^3/uL (130-400); RED CELL DISTRIBUTION WIDTH 26.8 % (10.0-14.5); WHITE BLOOD COUNT 7.5 10^3/uL (4.3-11.0)
[2019-02-18 14:59] LABS: ALANINE AMINOTRANSFERASE 25 U/L (0-55); ALBUMIN 4.1 GM/DL (3.2-4.5); ALKALINE PHOSPHATASE 95 U/L (40-136); BILIRUBIN,TOTAL 0.5 MG/DL (0.1-1.0); BUN/CREATININE RATIO 26; CALCIUM 9.2 MG/DL (8.5-10.1); CARBON DIOXIDE 32 MMOL/L (21-32); CHLORIDE 109 MMOL/L (98-107); CREATININE SERUM 0.78 MG/DL (0.60-1.30); GFR ESTIMATED > 60; GLUCOSE 62 MG/DL (70-105); POTASSIUM 4.6 MMOL/L (3.6-5.0); SODIUM 148 MMOL/L (135-145); TOTAL PROTEIN 6.5 GM/DL (6.4-8.2)
[2019-03-04 11:53] LABS: BASOPHILS # (AUTO) 0.1 10^3/uL (0.0-0.1); BASOPHILS % (AUTO) 1 % (0-10); EOSINOPHILS # (AUTO) 0.2 10^3/uL (0.0-0.3); EOSINOPHILS % (AUTO) 3 % (0-10); HEMATOCRIT 40 % (35-52); HEMOGLOBIN 11.9 G/DL (11.5-16.0); LYMPHOCYTES # (AUTO) 1.4 X 10^3 (1.0-4.0); LYMPHOCYTES % (AUTO) 21 % (12-44); MEAN CORPUSCULAR HEMOGLOBIN 20 PG (25-34); MEAN CORPUSCULAR HGB CONC 30 G/DL (32-36); MEAN CORPUSCULAR VOLUME 67 FL (80-99); MONOCYTES # (AUTO) 0.4 X 10^3 (0.0-1.0); MONOCYTES % (AUTO) 6 % (0-12); NEUTROPHILS # (AUTO) 4.4 X 10^3 (1.8-7.8); NEUTROPHILS % (AUTO) 69 % (42-75); PLATELET COUNT 270 10^3/uL (130-400); RED CELL DISTRIBUTION WIDTH 28.6 % (10.0-14.5); WHITE BLOOD COUNT 6.4 10^3/uL (4.3-11.0)
[2019-03-18 14:06] LABS: BASOPHILS % (AUTO) 1 % (0-10); EOSINOPHILS # (AUTO) 0.1 10^3/uL (0.0-0.3); EOSINOPHILS % (AUTO) 2 % (0-10); HEMATOCRIT 38 % (35-52); HEMOGLOBIN 11.3 G/DL (11.5-16.0); LYMPHOCYTES % (AUTO) 19 % (12-44); MEAN CORPUSCULAR HEMOGLOBIN 20 PG (25-34); MEAN CORPUSCULAR HGB CONC 30 G/DL (32-36); MEAN CORPUSCULAR VOLUME 67 FL (80-99); MONOCYTES # (AUTO) 0.3 X 10^3 (0.0-1.0); MONOCYTES % (AUTO) 6 % (0-12); NEUTROPHILS % (AUTO) 73 % (42-75); PLATELET COUNT 236 10^3/uL (130-400); RED CELL DISTRIBUTION WIDTH 29.2 % (10.0-14.5); WHITE BLOOD COUNT 5.5 10^3/uL (4.3-11.0)
[2019-03-18 14:27] LABS: ALANINE AMINOTRANSFERASE 42 U/L (0-55); ALBUMIN 4.1 GM/DL (3.2-4.5); ALKALINE PHOSPHATASE 103 U/L (40-136); BILIRUBIN,TOTAL 0.6 MG/DL (0.1-1.0); BUN/CREATININE RATIO 21; CALCIUM 9.1 MG/DL (8.5-10.1); CARBON DIOXIDE 27 MMOL/L (21-32); CHLORIDE 105 MMOL/L (98-107); CREATININE SERUM 0.86 MG/DL (0.60-1.30); GFR ESTIMATED > 60; GLUCOSE 295 MG/DL (70-105); POTASSIUM 4.4 MMOL/L (3.6-5.0); SODIUM 144 MMOL/L (135-145); TOTAL PROTEIN 6.7 GM/DL (6.4-8.2)
== END 2019-04-21 | disposition home or self-care (01) ==
LOC: ONC 13:36
PROVIDERS: ATTEND Internal Medicine Hematology & Oncology
DX: D75.1 Secondary polycythemia (principal); Z87.891 Personal history of nicotine dependence; I25.10 Atherosclerotic heart disease of native coronary artery without angina pectoris; I10 Essential (primary) hypertension; R09.02 Hypoxemia; G47.33 Obstructive sleep apnea (adult) (pediatric); R06.83 Snoring; E11.9 Type 2 diabetes mellitus without complications; Z79.899 Other long term (current) drug therapy
CPT/HCPCS: 36415; 80053; 85025; 99213

== ENCOUNTER → 2019-05-21 | Outpatient (CLI) | payer MEDICARE | LOC: LAB 14:21 | PROVIDERS: ATTEND Family Medicine | DX: E11.9 Type 2 diabetes mellitus without complications (principal) | CPT/HCPCS: 36415; 83036; 84443 ==

== ENCOUNTER 2019-06-18 13:23 | Outpatient (RCR) | payer MEDICARE ==
[2019-04-22 14:14] LABS: BASOPHILS % (AUTO) 0 % (0-10); EOSINOPHILS # (AUTO) 0.1 10^3/uL (0.0-0.3); EOSINOPHILS % (AUTO) 1 % (0-10); HEMATOCRIT 31 % (35-52); HEMOGLOBIN 9.6 G/DL (11.5-16.0); LYMPHOCYTES # (AUTO) 1.3 X 10^3 (1.0-4.0); LYMPHOCYTES % (AUTO) 18 % (12-44); MEAN CORPUSCULAR HEMOGLOBIN 22 PG (25-34); MEAN CORPUSCULAR HGB CONC 31 G/DL (32-36); MEAN CORPUSCULAR VOLUME 71 FL (80-99); MONOCYTES # (AUTO) 0.4 X 10^3 (0.0-1.0); MONOCYTES % (AUTO) 5 % (0-12); NEUTROPHILS # (AUTO) 5.3 X 10^3 (1.8-7.8); NEUTROPHILS % (AUTO) 75 % (42-75); PLATELET COUNT 262 10^3/uL (130-400)
[2019-05-21 14:38] LABS: BASOPHILS # (AUTO) 0.1 10^3/uL (0.0-0.1); BASOPHILS % (AUTO) 1 % (0-10); EOSINOPHILS # (AUTO) 0.2 10^3/uL (0.0-0.3); EOSINOPHILS % (AUTO) 2 % (0-10); HEMATOCRIT 34 % (35-52); LYMPHOCYTES # (AUTO) 1.4 X 10^3 (1.0-4.0); LYMPHOCYTES % (AUTO) 15 % (12-44); MEAN CORPUSCULAR HEMOGLOBIN 24 PG (25-34); MEAN CORPUSCULAR HGB CONC 30 G/DL (32-36); MEAN CORPUSCULAR VOLUME 81 FL (80-99); MEAN PLATELET VOLUME 9.9 FL (7.4-10.4); MONOCYTES # (AUTO) 0.7 X 10^3 (0.0-1.0); MONOCYTES % (AUTO) 7 % (0-12); NEUTROPHILS # (AUTO) 7.1 X 10^3 (1.8-7.8); NEUTROPHILS % (AUTO) 76 % (42-75); PLATELET COUNT 364 10^3/uL (130-400); RED CELL DISTRIBUTION WIDTH 28.8 % (10.0-14.5); WHITE BLOOD COUNT 9.4 10^3/uL (4.3-11.0)
[2019-06-18 13:41] LABS: BASOPHILS # (AUTO) 0.1 10^3/uL (0.0-0.1); BASOPHILS % (AUTO) 2 % (0-10); EOSINOPHILS # (AUTO) 0.2 10^3/uL (0.0-0.3); EOSINOPHILS % (AUTO) 2 % (0-10); HEMATOCRIT 39 % (35-52); HEMOGLOBIN 11.8 G/DL (11.5-16.0); LYMPHOCYTES # (AUTO) 1.4 X 10^3 (1.0-4.0); LYMPHOCYTES % (AUTO) 15 % (12-44); MEAN CORPUSCULAR HEMOGLOBIN 26 PG (25-34); MEAN CORPUSCULAR HGB CONC 31 G/DL (32-36); MEAN CORPUSCULAR VOLUME 83 FL (80-99); MEAN PLATELET VOLUME 10.7 FL (7.4-10.4); MONOCYTES # (AUTO) 0.5 X 10^3 (0.0-1.0); MONOCYTES % (AUTO) 5 % (0-12); NEUTROPHILS % (AUTO) 76 % (42-75); PLATELET COUNT 423 10^3/uL (130-400); RED CELL DISTRIBUTION WIDTH 23.8 % (10.0-14.5); WHITE BLOOD COUNT 9.2 10^3/uL (4.3-11.0)
== END 2019-07-21 | disposition home or self-care (01) ==
LOC: ONC 13:23
PROVIDERS: ATTEND Internal Medicine Hematology & Oncology
DX: D45 Polycythemia vera (principal); I25.10 Atherosclerotic heart disease of native coronary artery without angina pectoris; I10 Essential (primary) hypertension; G47.33 Obstructive sleep apnea (adult) (pediatric); E11.9 Type 2 diabetes mellitus without complications; M19.91 Primary osteoarthritis, unspecified site; Z79.899 Other long term (current) drug therapy; Z87.891 Personal history of nicotine dependence; Z90.49 Acquired absence of other specified parts of digestive tract; Z98.61 Coronary angioplasty status; Z98.890 Other specified postprocedural states
CPT/HCPCS: 82043; 85025; 99213

== ENCOUNTER 2019-09-22 09:18 | Outpatient (RCR) | payer MEDICARE ==
[2019-08-25 13:16] LABS: BASOPHILS # (AUTO) 0.2 10^3/uL (0.0-0.1); BASOPHILS % (AUTO) 1 % (0-10); EOSINOPHILS # (AUTO) 0.3 10^3/uL (0.0-0.3); EOSINOPHILS % (AUTO) 2 % (0-10); HEMATOCRIT 46 % (35-52); HEMOGLOBIN 14.1 G/DL (11.5-16.0); LYMPHOCYTES % (AUTO) 17 % (12-44); MEAN CORPUSCULAR HEMOGLOBIN 24 PG (25-34); MEAN CORPUSCULAR HGB CONC 31 G/DL (32-36); MEAN CORPUSCULAR VOLUME 77 FL (80-99); MEAN PLATELET VOLUME 10.5 FL (7.4-10.4); MONOCYTES # (AUTO) 0.7 X 10^3 (0.0-1.0); MONOCYTES % (AUTO) 6 % (0-12); NEUTROPHILS # (AUTO) 8.5 X 10^3 (1.8-7.8); NEUTROPHILS % (AUTO) 74 % (42-75); PLATELET COUNT 371 10^3/uL (130-400); RED CELL DISTRIBUTION WIDTH 21.2 % (10.0-14.5); WHITE BLOOD COUNT 11.6 10^3/uL (4.3-11.0)
[2019-08-25 13:25] LABS: ALBUMIN 4.4 GM/DL (3.2-4.5); POTASSIUM 4.1 MMOL/L (3.6-5.0)
[2019-08-25 13:26] LABS: CALCIUM 9.8 MG/DL (8.5-10.1)
[2019-08-25 13:29] LABS: BILIRUBIN,TOTAL 0.4 MG/DL (0.1-1.0)
[2019-08-25 13:31] LABS: CREATININE SERUM 1.07 MG/DL (0.60-1.30)
[2019-09-22 09:30] LABS: BASOPHILS # (AUTO) 0.1 10^3/uL (0.0-0.1); BASOPHILS % (AUTO) 2 % (0-10); EOSINOPHILS # (AUTO) 0.2 10^3/uL (0.0-0.3); EOSINOPHILS % (AUTO) 2 % (0-10); HEMATOCRIT 40 % (35-52); HEMOGLOBIN 12.2 G/DL (11.5-16.0); LYMPHOCYTES # (AUTO) 1.4 X 10^3 (1.0-4.0); LYMPHOCYTES % (AUTO) 19 % (12-44); MEAN CORPUSCULAR HEMOGLOBIN 24 PG (25-34); MEAN CORPUSCULAR HGB CONC 30 G/DL (32-36); MEAN CORPUSCULAR VOLUME 78 FL (80-99); MEAN PLATELET VOLUME 10.7 FL (7.4-10.4); MONOCYTES # (AUTO) 0.4 X 10^3 (0.0-1.0); MONOCYTES % (AUTO) 6 % (0-12); NEUTROPHILS # (AUTO) 5.3 X 10^3 (1.8-7.8); NEUTROPHILS % (AUTO) 72 % (42-75); PLATELET COUNT 286 10^3/uL (130-400); RED CELL DISTRIBUTION WIDTH 21.3 % (10.0-14.5); WHITE BLOOD COUNT 7.4 10^3/uL (4.3-11.0)
== END 2019-11-17 12:56 | disposition home or self-care (01) ==
LOC: ONC 09:18
PROVIDERS: ATTEND Internal Medicine Hematology & Oncology
DX: D45 Polycythemia vera (principal); I25.10 Atherosclerotic heart disease of native coronary artery without angina pectoris; I10 Essential (primary) hypertension; G47.33 Obstructive sleep apnea (adult) (pediatric); E11.9 Type 2 diabetes mellitus without complications; M19.91 Primary osteoarthritis, unspecified site; E78.2 Mixed hyperlipidemia; D72.829 Elevated white blood cell count, unspecified; I65.23 Occlusion and stenosis of bilateral carotid arteries; Z79.899 Other long term (current) drug therapy; Z87.891 Personal history of nicotine dependence; Z90.49 Acquired absence of other specified parts of digestive tract; Z98.61 Coronary angioplasty status; Z98.890 Other specified postprocedural states
CPT/HCPCS: 80053; 85025; 99195; G0463

== ENCOUNTER 2020-01-06 10:15 | Outpatient (RCR) | payer MEDICARE ==
[2019-11-17 14:46] LABS: BASOPHILS # (AUTO) 0.1 10^3/uL (0.0-0.1); BASOPHILS % (AUTO) 1 % (0-10); EOSINOPHILS # (AUTO) 0.1 10^3/uL (0.0-0.3); EOSINOPHILS % (AUTO) 2 % (0-10); HEMATOCRIT 38 % (35-52); HEMOGLOBIN 11.8 G/DL (11.5-16.0); LYMPHOCYTES # (AUTO) 1.9 X 10^3 (1.0-4.0); LYMPHOCYTES % (AUTO) 24 % (12-44); MEAN CORPUSCULAR HEMOGLOBIN 24 PG (25-34); MEAN CORPUSCULAR HGB CONC 31 G/DL (32-36); MEAN CORPUSCULAR VOLUME 77 FL (80-99); MEAN PLATELET VOLUME 10.1 FL (7.4-10.4); MONOCYTES # (AUTO) 0.6 X 10^3 (0.0-1.0); MONOCYTES % (AUTO) 7 % (0-12); NEUTROPHILS # (AUTO) 5.1 X 10^3 (1.8-7.8); NEUTROPHILS % (AUTO) 66 % (42-75); PLATELET COUNT 293 10^3/uL (130-400); WHITE BLOOD COUNT 7.8 10^3/uL (4.3-11.0)
[2019-11-17 15:15] LABS: ALBUMIN 4.3 GM/DL (3.2-4.5); BILIRUBIN,TOTAL 0.5 MG/DL (0.1-1.0); CALCIUM 9.5 MG/DL (8.5-10.1); CREATININE SERUM 0.93 MG/DL (0.60-1.30); POTASSIUM 4.3 MMOL/L (3.6-5.0); TOTAL PROTEIN 6.6 GM/DL (6.4-8.2)
[2020-01-06 10:38] LABS: BASOPHILS # (AUTO) 0.1 10^3/uL (0.0-0.1); BASOPHILS % (AUTO) 1 % (0-10); EOSINOPHILS # (AUTO) 0.2 10^3/uL (0.0-0.3); EOSINOPHILS % (AUTO) 2 % (0-10); HEMATOCRIT 35 % (35-52); HEMOGLOBIN 10.4 G/DL (11.5-16.0); LYMPHOCYTES # (AUTO) 1.8 X 10^3 (1.0-4.0); LYMPHOCYTES % (AUTO) 22 % (12-44); MEAN CORPUSCULAR HGB CONC 30 G/DL (32-36); MEAN CORPUSCULAR VOLUME 82 FL (80-99); MEAN PLATELET VOLUME 10.2 FL (7.4-10.4); MONOCYTES # (AUTO) 0.6 X 10^3 (0.0-1.0); MONOCYTES % (AUTO) 7 % (0-12); NEUTROPHILS # (AUTO) 5.6 X 10^3 (1.8-7.8); NEUTROPHILS % (AUTO) 68 % (42-75); PLATELET COUNT 337 10^3/uL (130-400); WHITE BLOOD COUNT 8.2 10^3/uL (4.3-11.0)
[2020-01-06 10:41] LABS: MEAN CORPUSCULAR HEMOGLOBIN 24 PG (25-34)
== END 2020-02-04 08:33 | disposition home or self-care (01) ==
LOC: ONC 10:15
PROVIDERS: ATTEND Internal Medicine Hematology & Oncology
DX: D45 Polycythemia vera (principal); I25.10 Atherosclerotic heart disease of native coronary artery without angina pectoris; I10 Essential (primary) hypertension; G47.33 Obstructive sleep apnea (adult) (pediatric); E11.9 Type 2 diabetes mellitus without complications; M19.91 Primary osteoarthritis, unspecified site; E78.2 Mixed hyperlipidemia; D72.829 Elevated white blood cell count, unspecified; I65.23 Occlusion and stenosis of bilateral carotid arteries; Z79.899 Other long term (current) drug therapy; Z87.891 Personal history of nicotine dependence; Z90.49 Acquired absence of other specified parts of digestive tract; Z98.61 Coronary angioplasty status; Z98.890 Other specified postprocedural states
CPT/HCPCS: 80053; 85025; G0463; 99213

== ENCOUNTER → 2020-01-10 | Outpatient (CLI) | payer MEDICARE ==
[~2020-01-10] VITALS: Ht 152 cm; Wt 102.0 kg
[~2020-01-10] MED LIST changes: +REGADENOSON 0.4 MG/5 ML SYR (LEXISCAN) IV ONE
[2020-01-10] MEDS: CATHETER FLUSH 10 ML SYR IV PRN ×2 (07:28→08:55)
[2020-01-10 08:53] VITALS: BP 152/100
--- NOTE | 2020-01-10 12:12 | Cardiology Stress Test Report ---
Stress Test Report Date of Procedure/Referring: Date of Procedure: Jan 10, 2020 PCP Maxwell Busch MD Admitting Physician Netta Mcmillan MD Indications: Coronary artery disease Baseline Heart Rate: 98 Baseline Blood Pressure: Blood Pressure Systolic: 152 Blood Pressure Diastolic: 100 Baseline Vitals Vital Signs Date Time Temp Pulse Resp B/P (MAP) Pulse Ox O2 Delivery O2 Flow Rate FiO2 01/10/20 08:53 98 16 152/100 (117) 95 Room Air Baseline EKG: Baseline EKG: normal sinus rhythm Summary After explaining the procedure to the patient, she signed a consent and then brought to the stress nuclear laboratory. Patient received 0.4 mg Lexiscan for stress test, ECG, heart rate and blood pressure were monitored continuously. Resting and stress dose of radio tracer were injected, imaging was acquired and reviewed in short axis, horizontal long axis and vertical long axis views. TID: 1.01 SSS: 22 SDS: 6 EF: 45 1. Patient tolerated Lexiscan well 2. Breast attenuation with fixed defect involving the mid to apical anterior wall and true apex, mild eric-infarct ischemia on SPECT images 3. Normal left ventricular size with hypokinesia involving the anterior wall and anterior septum, EF 45 percent MAXWELL BUSCH MD Jan 10, 2020 12:12
== END ==
LOC: CARD 07:12
PROVIDERS: ATTEND Internal Medicine Cardiovascular Disease
DX: I25.10 Atherosclerotic heart disease of native coronary artery without angina pectoris (principal); I10 Essential (primary) hypertension; G47.33 Obstructive sleep apnea (adult) (pediatric); E66.01 Morbid (severe) obesity due to excess calories; I51.89 Other ill-defined heart diseases; I51.0 Cardiac septal defect, acquired
CPT/HCPCS: 78452; 93017; A9502

== ENCOUNTER → 2020-01-12 | Outpatient (CLI) | payer MEDICARE ==
[~2020-01-12] MED LIST changes: -REGADENOSON 0.4 MG/5 ML SYR (LEXISCAN) IV ONE
== END ==
LOC: CARD 13:00
PROVIDERS: ATTEND Internal Medicine Cardiovascular Disease
DX: I25.10 Atherosclerotic heart disease of native coronary artery without angina pectoris (principal); I10 Essential (primary) hypertension; E66.01 Morbid (severe) obesity due to excess calories; G47.33 Obstructive sleep apnea (adult) (pediatric)
CPT/HCPCS: 93306

== ENCOUNTER → 2020-04-18 | Outpatient (CLI) | payer MEDICARE ==
[~2020-04-18] MED LIST changes: +CATHETER FLUSH 10 ML SYR IV PRN; +HOLD METFORMIN - RECEIVED CONTRAST 20 ML VIAL IV SCH; +IOHEXOL 350 MG/ML 100 ML (OMNIPAQUE 350) VIAL IV ONE; +NS 100 ML (IVPB) BAG IV ONE; +RT-ALBUTEROL SULF 2.5 MG/3 ML PRE-MIX VIAL INH ONE
[2020-04-18 12:52] LABS: BUN/CREATININE RATIO 21; CREATININE SERUM 0.81 MG/DL (0.60-1.30); GFR ESTIMATED > 60
--- NOTE | 2020-04-18 15:21 | Diagnostic Imaging Report ---
EXAMINATION: CT Chest with intravenous contrast. TECHNIQUE: Multiple contiguous axial images were obtained through the chest after the uneventful administration of intravenous contrast. All CT scans use one or more of the following dose optimizing techniques: automated exposure control, MA and/or KvP adjustment based on a patient size and exam type, or iterative reconstruction. HISTORY: Shortness of breath. COMPARISON: None available. FINDINGS: There is no edema or pneumonia. No pleural effusion. No pneumothorax. No suspicious nodules. There is no axillary or supraclavicular lymphadenopathy. There is no mediastinal lymphadenopathy. 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 Heart size is normal. There are mild coronary artery calcifications. No pericardial effusion. Aorta is normal in caliber. There is long segment esophageal thickening. Limited views of the upper abdomen show changes of cholecystectomy. There are no suspicious osseus lesions. IMPRESSION: Long segment esophageal wall thickening which may reflect esophagitis. Dictated by: Dictated on workstation # [id number]
== END ==
LOC: RT 13:00
PROVIDERS: ATTEND Nurse Practitioner Family
DX: K22.8 Other specified diseases of esophagus (principal)
CPT/HCPCS: 36415; 71260; 82565; 84520; 94060; 94729

== ENCOUNTER 2020-05-09 12:58 | Outpatient (RCR) | payer MEDICARE ==
[2020-02-14 14:02] LABS: BASOPHILS # (AUTO) 0.1 10^3/uL (0.0-0.1); BASOPHILS % (AUTO) 1 % (0-10); EOSINOPHILS # (AUTO) 0.2 10^3/uL (0.0-0.3); EOSINOPHILS % (AUTO) 2 % (0-10); HEMATOCRIT 39 % (35-52); LYMPHOCYTES # (AUTO) 1.2 10^3/uL (1.0-4.0); LYMPHOCYTES % (AUTO) 13 % (12-44); MEAN CORPUSCULAR HEMOGLOBIN 26 pg (25-34); MEAN CORPUSCULAR HGB CONC 31 g/dL (32-36); MEAN CORPUSCULAR VOLUME 85 fL (80-99); MEAN PLATELET VOLUME 10.7 fL (9.0-12.2); MONOCYTES # (AUTO) 0.6 10^3/uL (0.0-1.0); MONOCYTES % (AUTO) 7 % (0-12); NEUTROPHILS # (AUTO) 6.9 10^3/uL (1.8-7.8); NEUTROPHILS % (AUTO) 75 % (42-75); PLATELET COUNT 352 10^3/uL (130-400); WHITE BLOOD COUNT 9.2 10^3/uL (4.3-11.0)
[~2020-05-09 12:58] MED LIST changes: -CATHETER FLUSH 10 ML SYR IV PRN; -HOLD METFORMIN - RECEIVED CONTRAST 20 ML VIAL IV SCH; -IOHEXOL 350 MG/ML 100 ML (OMNIPAQUE 350) VIAL IV ONE; -NS 100 ML (IVPB) BAG IV ONE; -RT-ALBUTEROL SULF 2.5 MG/3 ML PRE-MIX VIAL INH ONE
[2020-05-09 13:18] LABS: BASOPHILS # (AUTO) 0.1 10^3/uL (0.0-0.1); BASOPHILS % (AUTO) 1 % (0-10); EOSINOPHILS # (AUTO) 0.2 10^3/uL (0.0-0.3); EOSINOPHILS % (AUTO) 2 % (0-10); HEMATOCRIT 39 % (35-52); HEMOGLOBIN 11.5 g/dL (11.5-16.0); LYMPHOCYTES # (AUTO) 1.8 10^3/uL (1.0-4.0); LYMPHOCYTES % (AUTO) 23 % (12-44); MEAN CORPUSCULAR HEMOGLOBIN 26 pg (25-34); MEAN CORPUSCULAR HGB CONC 30 g/dL (32-36); MEAN CORPUSCULAR VOLUME 86 fL (80-99); MEAN PLATELET VOLUME 10.6 fL (9.0-12.2); MONOCYTES # (AUTO) 0.5 10^3/uL (0.0-1.0); MONOCYTES % (AUTO) 7 % (0-12); NEUTROPHILS # (AUTO) 5.2 10^3/uL (1.8-7.8); NEUTROPHILS % (AUTO) 66 % (42-75); PLATELET COUNT 310 10^3/uL (130-400); WHITE BLOOD COUNT 7.8 10^3/uL (4.3-11.0)
[2020-05-09 13:58] LABS: ALANINE AMINOTRANSFERASE 60 U/L (0-55); ALBUMIN 4.1 GM/DL (3.2-4.5); ALKALINE PHOSPHATASE 58 U/L (40-136); BILIRUBIN,TOTAL 0.5 MG/DL (0.1-1.0); BUN/CREATININE RATIO 16; CALCIUM 8.9 MG/DL (8.5-10.1); CARBON DIOXIDE 30 MMOL/L (21-32); CHLORIDE 102 MMOL/L (98-107); CREATININE SERUM 0.86 MG/DL (0.60-1.30); GFR ESTIMATED > 60; GLUCOSE 291 MG/DL (70-105); SODIUM 141 MMOL/L (135-145); TOTAL PROTEIN 6.7 GM/DL (6.4-8.2)
== END 2020-05-14 | disposition home or self-care (01) ==
LOC: ONC 12:58
PROVIDERS: ATTEND Internal Medicine Hematology & Oncology
DX: D45 Polycythemia vera (principal); I25.10 Atherosclerotic heart disease of native coronary artery without angina pectoris; I10 Essential (primary) hypertension; G47.33 Obstructive sleep apnea (adult) (pediatric); E11.9 Type 2 diabetes mellitus without complications; M19.91 Primary osteoarthritis, unspecified site; E66.01 Morbid (severe) obesity due to excess calories; E78.2 Mixed hyperlipidemia; D72.829 Elevated white blood cell count, unspecified; I65.23 Occlusion and stenosis of bilateral carotid arteries; Z79.899 Other long term (current) drug therapy; Z87.891 Personal history of nicotine dependence; Z90.49 Acquired absence of other specified parts of digestive tract; Z98.61 Coronary angioplasty status; Z98.890 Other specified postprocedural states
CPT/HCPCS: 85025; G0463; 80053; 99213

== ENCOUNTER 2020-08-08 12:46 | Outpatient (RCR) | payer MEDICARE ==
[2020-08-08 13:19] LABS: BASOPHILS # (AUTO) 0.1 10^3/uL (0.0-0.1); BASOPHILS % (AUTO) 1 % (0-10); EOSINOPHILS # (AUTO) 0.1 10^3/uL (0.0-0.3); EOSINOPHILS % (AUTO) 2 % (0-10); HEMATOCRIT 40 % (35-52); HEMOGLOBIN 12.1 g/dL (11.5-16.0); LYMPHOCYTES # (AUTO) 1.7 10^3/uL (1.0-4.0); LYMPHOCYTES % (AUTO) 25 % (12-44); MEAN CORPUSCULAR HEMOGLOBIN 26 pg (25-34); MEAN CORPUSCULAR HGB CONC 31 g/dL (32-36); MEAN CORPUSCULAR VOLUME 85 fL (80-99); MEAN PLATELET VOLUME 10.3 fL (9.0-12.2); MONOCYTES # (AUTO) 0.5 10^3/uL (0.0-1.0); MONOCYTES % (AUTO) 7 % (0-12); NEUTROPHILS # (AUTO) 4.2 10^3/uL (1.8-7.8); NEUTROPHILS % (AUTO) 63 % (42-75); PLATELET COUNT 260 10^3/uL (130-400); WHITE BLOOD COUNT 6.7 10^3/uL (4.3-11.0)
[2020-08-08 13:35] LABS: ALBUMIN 4.1 GM/DL (3.2-4.5); BILIRUBIN,TOTAL 0.7 MG/DL (0.1-1.0); CALCIUM 9.3 MG/DL (8.5-10.1); POTASSIUM 4.6 MMOL/L (3.6-5.0); TOTAL PROTEIN 6.4 GM/DL (6.4-8.2)
== END 2020-11-06 | disposition home or self-care (01) ==
LOC: ONC 12:46
PROVIDERS: ATTEND Internal Medicine Hematology & Oncology
DX: D45 Polycythemia vera (principal); I25.10 Atherosclerotic heart disease of native coronary artery without angina pectoris; I10 Essential (primary) hypertension; G47.33 Obstructive sleep apnea (adult) (pediatric); E66.01 Morbid (severe) obesity due to excess calories; D50.9 Iron deficiency anemia, unspecified; Z79.899 Other long term (current) drug therapy; Z87.891 Personal history of nicotine dependence; Z90.49 Acquired absence of other specified parts of digestive tract; Z98.61 Coronary angioplasty status; Z98.890 Other specified postprocedural states
CPT/HCPCS: 80053; 85025; G0463; 99213

== ENCOUNTER 2021-02-06 13:13 | Outpatient (RCR) | payer MEDICARE ==
[2020-11-14 11:04] LABS: BASOPHILS # (AUTO) 0.1 10^3/uL (0.0-0.1); BASOPHILS % (AUTO) 1 % (0-10); EOSINOPHILS # (AUTO) 0.2 10^3/uL (0.0-0.3); EOSINOPHILS % (AUTO) 2 % (0-10); HEMATOCRIT 38 % (35-52); HEMOGLOBIN 11.4 g/dL (11.5-16.0); LYMPHOCYTES # (AUTO) 1.8 10^3/uL (1.0-4.0); LYMPHOCYTES % (AUTO) 26 % (12-44); MEAN CORPUSCULAR HEMOGLOBIN 27 pg (25-34); MEAN CORPUSCULAR HGB CONC 30 g/dL (32-36); MEAN CORPUSCULAR VOLUME 89 fL (80-99); MEAN PLATELET VOLUME 10.4 fL (9.0-12.2); MONOCYTES # (AUTO) 0.6 10^3/uL (0.0-1.0); MONOCYTES % (AUTO) 8 % (0-12); NEUTROPHILS # (AUTO) 4.3 10^3/uL (1.8-7.8); NEUTROPHILS % (AUTO) 61 % (42-75); PLATELET COUNT 328 10^3/uL (130-400); WHITE BLOOD COUNT 7.1 10^3/uL (4.3-11.0)
[2020-11-14 11:25] LABS: ALBUMIN 4.2 GM/DL (3.2-4.5); BILIRUBIN,TOTAL 0.6 MG/DL (0.1-1.0); CALCIUM 9.7 MG/DL (8.5-10.1); CREATININE SERUM 0.96 MG/DL (0.60-1.30); POTASSIUM 4.9 MMOL/L (3.6-5.0); TOTAL PROTEIN 6.6 GM/DL (6.4-8.2)
[2021-02-06 13:30] LABS: BASOPHILS # (AUTO) 0.1 10^3/uL (0.0-0.1); BASOPHILS % (AUTO) 2 % (0-10); EOSINOPHILS # (AUTO) 0.1 10^3/uL (0.0-0.3); EOSINOPHILS % (AUTO) 2 % (0-10); HEMATOCRIT 42 % (35-52); HEMOGLOBIN 12.8 g/dL (11.5-16.0); LYMPHOCYTES # (AUTO) 1.5 10^3/uL (1.0-4.0); LYMPHOCYTES % (AUTO) 20 % (12-44); MEAN CORPUSCULAR HEMOGLOBIN 27 pg (25-34); MEAN CORPUSCULAR HGB CONC 30 g/dL (32-36); MEAN CORPUSCULAR VOLUME 90 fL (80-99); MEAN PLATELET VOLUME 10.3 fL (9.0-12.2); MONOCYTES # (AUTO) 0.7 10^3/uL (0.0-1.0); MONOCYTES % (AUTO) 9 % (0-12); NEUTROPHILS # (AUTO) 4.9 10^3/uL (1.8-7.8); NEUTROPHILS % (AUTO) 66 % (42-75); PLATELET COUNT 275 10^3/uL (130-400); WHITE BLOOD COUNT 7.5 10^3/uL (4.3-11.0)
[2021-02-06 13:55] LABS: ALBUMIN 4.2 GM/DL (3.2-4.5); BILIRUBIN,TOTAL 0.7 MG/DL (0.1-1.0); CALCIUM 9.9 MG/DL (8.5-10.1); CREATININE SERUM 1.03 MG/DL (0.60-1.30); POTASSIUM 4.6 MMOL/L (3.6-5.0)
== END 2021-02-12 | disposition home or self-care (01) ==
LOC: ONC 13:13
PROVIDERS: ATTEND Internal Medicine Hematology & Oncology
DX: D45 Polycythemia vera (principal); I25.10 Atherosclerotic heart disease of native coronary artery without angina pectoris; I10 Essential (primary) hypertension; G47.33 Obstructive sleep apnea (adult) (pediatric); E66.01 Morbid (severe) obesity due to excess calories; D50.9 Iron deficiency anemia, unspecified; Z79.899 Other long term (current) drug therapy; Z87.891 Personal history of nicotine dependence; Z90.49 Acquired absence of other specified parts of digestive tract; Z98.61 Coronary angioplasty status; Z98.890 Other specified postprocedural states
CPT/HCPCS: 80053; 82728; 83540; 83550; 85025; G0463; 99213

== ENCOUNTER 2021-03-07 10:00 | Day surgery (SDC) | payer MEDICARE ==
[~2021-03-07] VITALS: Ht 152.4 cm; Wt 98.9 kg
[2021-03-07 08:31] VITALS: BP 194/67
--- NOTE | 2021-03-07 08:52 | Diagnostic Imaging Report ---
INDICATION: Coronary artery disease. COMPARISON: 09/23/2018. FINDINGS: Single view of the chest demonstrates cardiac enlargement with central vascular congestion. There is no pneumothorax or effusion. Osseous structures normal. IMPRESSION: Cardiac enlargement with mild central vascular congestion. Dictated by: Dictated on workstation # [id number]
[2021-03-07 08:55] LABS: HEMATOCRIT 42 % (35-52); HEMOGLOBIN 12.7 g/dL (11.5-16.0); MEAN CORPUSCULAR HEMOGLOBIN 27 pg (25-34); MEAN CORPUSCULAR HGB CONC 30 g/dL (32-36); MEAN CORPUSCULAR VOLUME 89 fL (80-99); MEAN PLATELET VOLUME 10.1 fL (9.0-12.2); PLATELET COUNT 280 10^3/uL (130-400); WHITE BLOOD COUNT 7.6 10^3/uL (4.3-11.0)
[2021-03-07 09:08] LABS: INR 1.1 (0.8-1.4); PROTHROMBIN TIME PATIENT 14.3 SEC (12.2-14.7)
[2021-03-07 09:16] LABS: ALBUMIN 4.1 GM/DL (3.2-4.5); BILIRUBIN,TOTAL 0.8 MG/DL (0.1-1.0); CALCIUM 10.3 MG/DL (8.5-10.1); CREATININE SERUM 0.94 MG/DL (0.60-1.30); POTASSIUM 4.6 MMOL/L (3.6-5.0); TOTAL PROTEIN 6.9 GM/DL (6.4-8.2)
[~2021-03-07 10:00] MED LIST changes: +ASPI-1238 PO; +ATOR80TA76 PO; +CALC-140 PO; +FLUT9.9S NS; +GABA300C PO; +HEParin (CATH LAB) 2,000 ML IV ONE; +HYDR12.56 PO; +INSU100I10 SQ; +LIDOCAINE 1% INJ 20 ML 20 ML VIAL ONE; +LOSA50TA63 PO; +MELA1TAB51 PO; +METF-399 PO; +MONT10TA32 PO; +MTP25TSR PO; +MV-M1TAB57 PO; +NS IV 1000 ML 1,000 ML IV SCH; +ROPI0.5T4 PO; +RUXO10TA PO; +SEMA3TAB PO
[2021-03-07] MEDS ORDERED: fentaNYL INJ 100 MCG/2 ML AMP ONE (10:38)
[2021-03-07] MEDS ORDERED: MIDAZOLAM 5 MG/5 ML (VERSED) VIAL ONE (10:38)
[2021-03-07] MEDS ORDERED: VERAPAMIL 5 MG/2 ML (CALAN) VIAL IV ONE (10:38)
[2021-03-07] MEDS ORDERED: HEParin 1000 UNIT/ML (10ML VIAL) FOR BOLUS ONE (10:38)
[2021-03-07] MEDS ORDERED: NITRO DRIP 25000 MCG/D5W 250 ML IV ONE (10:38)
--- NOTE | 2021-03-07 10:40 | Conscious Sedation/ASA ---
Conscious Sedation Pre-Proced Time 10:39 ASA Score 3 For ASA 3 and 4: Consider anesthesia and medical clearance. Also, for patients with a history of failed moderate sedation consider anesthesia. Airway Lungs Heart ASA score ASA 1: a normal healthy patient ASA 2: a patient with a mild systemic disease (mid diabetes, controlled hypertension, obesity x ASA 3: a patient with a severe systemic disease that limits activity (angina, COPD, prior Myocardial infarction) ASA 4: a patient with an incapacitating disease that is a constant threat to life (CHF, renal failure) ASA 5: a moribund patient not expected to survive 24 hrs. (ruptured aneurysm) ASA 6: a declared brain- patient whose organs are being harvested. For emergent operations, add the letter E after the classification Mallampati Classification Grade 3 Sedation Plan Analgesia, Amnesia, Plan communicated to team members, Discussed options with patient/fam, Discussed risks with patient/fam The patient is an appropriate candidate to undergo the planned procedure, sedation, and anesthesia. The patient immediately re-assessed prior to indication. MAXWELL ECHEVERRIA MD Mar 07, 2021 10:40
[2021-03-07] MEDS ORDERED: meTOprolol 5 MG/5 ML (LOPRESSOR) VIAL ONE (11:25)
[2021-03-07] MEDS ORDERED: ASPIRIN 325 MG (5 GR) TABLET ONE (11:53)
[2021-03-07] MEDS ORDERED: CLOPIDOGREL 300 MG (PLAVIX) TABLET PO ONE (11:53)
[2021-03-07] MEDS ORDERED: HYDROCHLOROTHIAZIDE 12.5 MG PO PRN (12:00)
[2021-03-07] MEDS ORDERED: LOSARTAN 50 MG (COZAAR) TAB PO PRN (12:00)
--- NOTE | 2021-03-07 12:01 | Cardiac Cath Report ---
Cardiac Cath Report Physician (s)/Geological Technician (s) Physician MAXWELL ECHEVERRIA MD Pre-Procedure Diagnosis Pre-Procedure Diagnosis: coronary artery disease Post-Procedure Note Procedure Start Date: Mar 07, 2021 Name of Procedure: Left heart catheterization Balloon angioplasty to the LAD Findings/Procedure Note PROCEDURE NOTE: 70-year-old lady with history of coronary artery disease, hypertension hyperlipidemia, had an abnormal stress test, scheduled for cardiac catheterization possible PTCA. After explaining the procedure to the patient, all pros and cons were explained, all questions were answered. The patient signed the consent and then she was placed on the cardiac catheterization laboratory. Groin was prepped SL fashion local anesthesia was used. Sheath placed in the right radial artery, Louann catheter was advanced to the left ventricular cavity, pressure was measured, pullback LV to aorta was done, right and left coronary angiogram was done. Patient was given a total of 6000 units of heparin, has severe in-stent restenosis in the mid LAD, EBU guide was advanced to the left system and BMW wire was advanced and parked distally, balloon dilatation using trek 3.0 x 20 mm with multiple inflation up to 16 joanna up to 3.07 mm in diameter with excellent results, distally there is mild disease At the end of the procedure the sheath was removed. Vascular band deployed FINDINGS: Hemodynamics LV 188/48, end-diastolic pressure of 48 Aorta 193/94 mean of 124 ANATOMY: Left Main is free of obstructive disease Left Anterior Descending is moderate in size with severe in-stent restenosis, small vessel disease distally, successful balloon angioplasty using noncompliant balloon trek NC 3 x 20 mm with multiple inflation up to 3.07 mm with excellent post balloon angioplasty results Left Circumflex has mild disease nonobstructive disease Right Coronary Artery has mild disease nonobstructive disease LV Gram was not done, pressure was measured CONCLUSION: 1. Severe in-stent restenosis in the mid LAD with successful balloon angioplasty using noncompliant 3 x 20 mm balloon with multiple inflations up to 3.07 mm with excellent results, mild to moderate small vessel disease in the distal LAD 2. Mild disease in the circumflex and right coronary artery nonobstructive disease 3. Severe hypertension with hypertensive heart disease and elevated left ventricular end-diastolic pressure DISCUSSION AND RECOMMENDATION: I will continue maximizing medical therapy, monitor blood pressure closely, restart home medication. Anesthesia Type: Conscious Sedation Estimated blood loss (mL): 30 ml Contrast Amount: 72 ml Total Radiation Dose: 1135 mGy Post-Procedure Diagnosis Post-operative diagnosis: Chest pain Coronary artery disease Hypertension Hyperlipidemia Diabetes mellitus MAXWELL ECHEVERRIA MD Mar 07, 2021 12:01
[2021-03-07] MEDS ORDERED: GABAPENTIN 300 MG (NEURONTIN) CAP PO SCH (13:00)
[2021-03-07] MEDS ORDERED: PATIENT MAY USE OWN MEDS, ALL MC SCH (14:45)
[2021-03-07 15:46] VITALS: BP 139/80
[2021-03-07] MEDS: NS IV 1000 ML 1,000 ML IV SCH ×2 (16:54→22:10)
[2021-03-07] MEDS ORDERED: FLUTICASONE NASAL SPRAY (FLONASE) 16 GM BTL NS SCH (21:00)
[2021-03-07] MEDS ORDERED: ROPINIROLE 0.5MG TABLET PO SCH (21:00)
[2021-03-07] MEDS ORDERED: inSUlin GLARGINE 1000 UNITS/10 ML (LANTUS) VIAL SQ SCH (21:00)
[2021-03-07] MEDS: GABAPENTIN 300 MG (NEURONTIN) CAP PO SCH (21:14)
[2021-03-08] MEDS ORDERED: CLOP75TA28 PO (06:22)
[2021-03-08] MEDS ORDERED: METF-399 PO (06:22)
--- NOTE | 2021-03-08 06:23 | Discharge Inst-Post CATH ---
Discharge Inst-CATH/EP Problems Reviewed?: Yes Post Cardiac Cath/EP D/C Inst Follow Up/Plan Hold Metformin for [address] Busch in 2-4 weeks <b>CARDIAC CATH/EP PROCEDURE DISCHARGE INSTRUCTIONS</b> ACTIVITY * Go Home directly and rest. * Limit activity of the leg (or wrist if it was used) for 7 days including aerobics, swimming, jogging, bicycling, etc. * Restrict stair-climbing for 7 days if possible, if not, climb up with your non-cath leg, then bring together on the same step. * Avoid lifting, pushing, pulling or excessive movement of the affected extremity for 7 days. * Customary sexual activity may be resumed after 2 days-use caution not to use a position that strains or causes pain to the affected extremity. * No driving for 24 hours. * NO SMOKING. * Avoid straining for bowel movements for 7 days. * Gentle walking on level ground is allowed. * Returning to work will depend on the type of procedure and the results. Your doctor will discuss this with you. CALL YOUR DOCTOR FOR ANY OF THE FOLLOWING: *If bleeding from the puncture site occurs- Apply gentle pressure to site with clean cloth and call your doctor or EMS. * If a knot or lump forms under the skin, increases in size, or causes pain. * If bruising appears to be worsening or moving further down your leg instead of disappearing. * Temperature above 101 F. CARE OF YOUR GROIN INCISION; * Bruising or purple discoloration of the skin near the puncture site is common. * You may shower only, no bathtub bathing for 5 days. Be careful to avoid slipping as your leg may feel stiff. * If a closure device was used on your femoral artery, please see the attached guide regarding care of the device and your leg. * Leave dressing on FOR 24 hours. CARE OF YOUR WRIST INCISION; * Bruising or purple discoloration of the skin near the puncture site is common. * You may shower. * DO NOT submerge wrist. * Leave dressing on FOR 24 hours. MAXWELL BUSCH MD Mar 08, 2021 06:23
[2021-03-08] MEDS ORDERED: PATIENT'S OWN MED (RX USE ONLY) PO SCH (06:30)
[2021-03-08] MEDS: NS IV 1000 ML 1,000 ML IV SCH (07:48)
--- NOTE | 2021-03-08 08:35 | Cardiology Progress Note ---
Subjective Date Seen by Provider: Mar 08, 2021 Time Seen by Provider: 08:34 Subjective/Events-last exam Patient was seen at bedside, laying down comfortably, no chest pain, her radial access has healed well Review of Systems General: No Chills, No Night Sweats, No Fatigue, No Malaise, No Appetite, No Other HEENT: No Head Aches, No Visual Changes, No Eye Pain, No Ear Pain, No Dysphasia, No Sinus Congestion, No Post Nasal Drip, No Sore Throat, No Other Pulmonary: No Dyspnea, No Cough, No Pleuritic Chest Pain, No Other Cardiovascular: No: Chest Pain, Palpitations, Orthopnea, Paroxysmal Noc. Dyspnea, Edema, Lt Headedness, Other Objective-Cardiology Exam Last Set of Vital Signs Vital Signs 03/08/21 07:59 Temp 36.6 Pulse 80 Resp 20 B/P (MAP) 101/76 Pulse Ox 98 O2 Delivery Nasal Cannula O2 Flow Rate 3.00 I&O Intake and Output 03/08/21 00:00 Intake Total 290 ml Balance 290 ml Intake Oral 290 ml # Voids 4 General: Alert, Oriented X3, Cooperative HEENT: Atraumatic, PERRLA Neck: Supple, No JVD, No Thyromegaly Lungs: Clear to Auscultation, Normal Air Movement Heart: Regular Rate, Normal S1, Normal S2, No Murmurs Abdomen: Normal Bowel Sounds, Soft, No Tenderness, No Hepatosplenomegaly, No Masses Extremities: No Clubbing, No Cyanosis, No Edema, Normal Pulses, No Tenderness/Swelling Skin: No Rashes, No Breakdown, No Significant Lesion Neuro: Normal Gait, Normal Speech, Strength at 5/5 X4 Ext, Normal Tone, Sensation Intact Psych/Mental Status: Mental Status NL, Mood NL Results Lab Laboratory Tests 03/07/21 08:40 A/P-Cardiology Admission Diagnosis Coronary artery disease Hypertension Hyperlipidemia Diabetes mellitus Assessment/Plan Coronary artery disease, status post angioplasty for in-stent restenosis in the LAD with excellent results. Feeling better. Hypertension, continue current medication Hyperlipidemia, continue current medication Diabetes mellitus, educated on holding Metformin for 48 hours Patient was educated on taking aspirin Plavix MAXWELL ECHEVERRIA MD Mar 08, 2021 08:35
[2021-03-08] MEDS: GABAPENTIN 300 MG (NEURONTIN) CAP PO SCH (08:52)
[2021-03-08] MEDS ORDERED: LORATADINE (CLARITIN) 10 MG TAB PO SCH (09:00)
[2021-03-08] MEDS ORDERED: ASPIRIN E.C. 81 MG (ECOTRIN) TAB PO SCH (09:00)
[2021-03-08] MEDS ORDERED: inSUlin GLARGINE 1000 UNITS/10 ML (LANTUS) VIAL SQ SCH (09:00)
[2021-03-08] MEDS ORDERED: CLOPIDOGREL 75 MG (PLAVIX) TABLET PO SCH (09:00)
== END 2021-03-08 09:26 ==
LOC: CATH 10:00 → CSD 13:39 → CATH 03-08 09:26
PROVIDERS: ATTEND Internal Medicine Cardiovascular Disease
DX: I25.10 Atherosclerotic heart disease of native coronary artery without angina pectoris (principal); I10 Essential (primary) hypertension; D45 Polycythemia vera; R00.2 Palpitations; E11.42 Type 2 diabetes mellitus with diabetic polyneuropathy; M19.90 Unspecified osteoarthritis, unspecified site; J44.9 Chronic obstructive pulmonary disease, unspecified; E66.2 Morbid (severe) obesity with alveolar hypoventilation; Z68.41 Body mass index [BMI] 40.0-44.9, adult; E78.2 Mixed hyperlipidemia; I65.23 Occlusion and stenosis of bilateral carotid arteries; Z79.84 Long term (current) use of oral hypoglycemic drugs; Z88.5 Allergy status to narcotic agent; Z87.891 Personal history of nicotine dependence; Z95.5 Presence of coronary angioplasty implant and graft; Z79.4 Long term (current) use of insulin; Z79.899 Other long term (current) drug therapy; Z79.82 Long term (current) use of aspirin; Z91.048 Other nonmedicinal substance allergy status; Z11.2 Encounter for screening for other bacterial diseases
CPT/HCPCS: 71045; 80053; 80061; 82947 ×2; 85027; 85610; 85730; 87081; 92920; 93458; C1725; C1769; C1887; C1894; 36415

== ENCOUNTER 2021-05-01 14:31 | Outpatient (RCR) | payer MEDICARE ==
[2021-05-01 14:01] LABS: BASOPHILS # (AUTO) 0.1 10^3/uL (0.0-0.1); BASOPHILS % (AUTO) 1 % (0-10); EOSINOPHILS # (AUTO) 0.2 10^3/uL (0.0-0.3); EOSINOPHILS % (AUTO) 2 % (0-10); HEMATOCRIT 40 % (35-52); HEMOGLOBIN 12.4 g/dL (11.5-16.0); LYMPHOCYTES # (AUTO) 1.6 10^3/uL (1.0-4.0); LYMPHOCYTES % (AUTO) 20 % (12-44); MEAN CORPUSCULAR HEMOGLOBIN 27 pg (25-34); MEAN CORPUSCULAR HGB CONC 31 g/dL (32-36); MEAN CORPUSCULAR VOLUME 87 fL (80-99); MEAN PLATELET VOLUME 10.1 fL (9.0-12.2); MONOCYTES # (AUTO) 0.7 10^3/uL (0.0-1.0); MONOCYTES % (AUTO) 9 % (0-12); NEUTROPHILS # (AUTO) 5.6 10^3/uL (1.8-7.8); NEUTROPHILS % (AUTO) 68 % (42-75); PLATELET COUNT 283 10^3/uL (130-400); WHITE BLOOD COUNT 8.3 10^3/uL (4.3-11.0)
[2021-05-01 14:15] LABS: ALBUMIN 4.1 GM/DL (3.2-4.5); BILIRUBIN,TOTAL 0.6 MG/DL (0.1-1.0); CALCIUM 9.8 MG/DL (8.5-10.1); CREATININE SERUM 0.86 MG/DL (0.60-1.30); POTASSIUM 4.1 MMOL/L (3.6-5.0); TOTAL PROTEIN 6.5 GM/DL (6.4-8.2)
[~2021-05-01 14:31] MED LIST changes: +CLOP75TA28 PO; -HEParin (CATH LAB) 2,000 ML IV ONE; -LIDOCAINE 1% INJ 20 ML 20 ML VIAL ONE; +MONT-40 PO; -MONT10TA32 PO; -NS IV 1000 ML 1,000 ML IV SCH
== END 2021-05-18 | disposition home or self-care (01) ==
LOC: ONC 14:31
PROVIDERS: ATTEND Internal Medicine Hematology & Oncology
DX: D45 Polycythemia vera (principal); I25.10 Atherosclerotic heart disease of native coronary artery without angina pectoris; I10 Essential (primary) hypertension; D50.9 Iron deficiency anemia, unspecified; E11.9 Type 2 diabetes mellitus without complications; E66.01 Morbid (severe) obesity due to excess calories; Z87.891 Personal history of nicotine dependence; Z90.49 Acquired absence of other specified parts of digestive tract; Z98.61 Coronary angioplasty status
CPT/HCPCS: 80053; 85025; G0463; 99213

== ENCOUNTER → 2021-05-31 | Outpatient (CLI) | payer MEDICARE, OTHER ==
[~2021-05-31] MED LIST changes: +RT-ALBUTEROL SULF 2.5 MG/3 ML PRE-MIX VIAL INH ONE
[2021-05-31 11:23] LABS: ABG BASE EXCESS 0.4 MMOL/L (-2.5-2.5); ABG OXYGEN SATURATION 98 % (94-100); ABG PCO2 44 MMHG (35-45); ABG PH 7.37 (7.37-7.43); ABG PO2 94 MMHG (79-93); ABG TCO2 26.4 MMOL/L (21.0-31.0)
[2021-05-31 11:24] LABS: ALLENS TEST YES-POS; INSPIRED O2 2 L; PATIENT TEMP 97.9; VENTILATOR NO
== END ==
LOC: RT 10:45
PROVIDERS: ATTEND Internal Medicine Critical Care Medicine
DX: R06.02 Shortness of breath (principal)
CPT/HCPCS: 36600; 82805; 94060

== ENCOUNTER → 2021-07-10 | Outpatient (CLI) | payer MEDICARE ==
[~2021-07-10] MED LIST changes: -RT-ALBUTEROL SULF 2.5 MG/3 ML PRE-MIX VIAL INH ONE
[2021-07-10 13:51] LABS: BASOPHILS # (AUTO) 0.1 10^3/uL (0.0-0.1); BASOPHILS % (AUTO) 1 % (0-10); EOSINOPHILS # (AUTO) 0.2 10^3/uL (0.0-0.3); EOSINOPHILS % (AUTO) 2 % (0-10); HEMATOCRIT 40 % (35-52); HEMOGLOBIN 12.5 g/dL (11.5-16.0); LYMPHOCYTES # (AUTO) 1.7 10^3/uL (1.0-4.0); LYMPHOCYTES % (AUTO) 20 % (12-44); MEAN CORPUSCULAR HEMOGLOBIN 27 pg (25-34); MEAN CORPUSCULAR HGB CONC 31 g/dL (32-36); MEAN CORPUSCULAR VOLUME 87 fL (80-99); MEAN PLATELET VOLUME 9.9 fL (9.0-12.2); MONOCYTES # (AUTO) 0.6 10^3/uL (0.0-1.0); MONOCYTES % (AUTO) 7 % (0-12); NEUTROPHILS # (AUTO) 5.6 10^3/uL (1.8-7.8); NEUTROPHILS % (AUTO) 68 % (42-75); PLATELET COUNT 250 10^3/uL (130-400); WHITE BLOOD COUNT 8.2 10^3/uL (4.3-11.0)
[2021-07-10 14:10] LABS: ALBUMIN 4.2 GM/DL (3.2-4.5); BILIRUBIN,TOTAL 0.6 MG/DL (0.1-1.0); CALCIUM 9.5 MG/DL (8.5-10.1); CREATININE SERUM 0.88 MG/DL (0.60-1.30); POTASSIUM 4.1 MMOL/L (3.6-5.0); TOTAL PROTEIN 6.8 GM/DL (6.4-8.2)
== END ==
LOC: EDSTATUS 05-19 10:45 → ONC 10:45
PROVIDERS: ATTEND Internal Medicine Hematology & Oncology
DX: D45 Polycythemia vera (principal); I25.10 Atherosclerotic heart disease of native coronary artery without angina pectoris; I10 Essential (primary) hypertension; D50.9 Iron deficiency anemia, unspecified; E11.9 Type 2 diabetes mellitus without complications; E66.01 Morbid (severe) obesity due to excess calories; Z87.891 Personal history of nicotine dependence; Z90.49 Acquired absence of other specified parts of digestive tract; Z98.61 Coronary angioplasty status
CPT/HCPCS: 80053; 85025; G0463; 36415; 99213

== ENCOUNTER → 2021-10-10 | Outpatient (CLI) | payer MEDICARE ==
[~2021-10-10] MED LIST changes: -SEMA3TAB PO; +SEMA3TAB4 PO
[2021-10-10 13:42] LABS: BASOPHILS # (AUTO) 0.1 10^3/uL (0.0-0.1); BASOPHILS % (AUTO) 1 % (0-10); EOSINOPHILS # (AUTO) 0.2 10^3/uL (0.0-0.3); EOSINOPHILS % (AUTO) 2 % (0-10); HEMATOCRIT 39 % (35-52); HEMOGLOBIN 12.2 g/dL (11.5-16.0); LYMPHOCYTES # (AUTO) 1.8 10^3/uL (1.0-4.0); LYMPHOCYTES % (AUTO) 24 % (12-44); MEAN CORPUSCULAR HEMOGLOBIN 27 pg (25-34); MEAN CORPUSCULAR HGB CONC 31 g/dL (32-36); MEAN CORPUSCULAR VOLUME 86 fL (80-99); MEAN PLATELET VOLUME 10.1 fL (9.0-12.2); MONOCYTES # (AUTO) 0.7 10^3/uL (0.0-1.0); MONOCYTES % (AUTO) 9 % (0-12); NEUTROPHILS # (AUTO) 4.9 10^3/uL (1.8-7.8); NEUTROPHILS % (AUTO) 63 % (42-75); PLATELET COUNT 274 10^3/uL (130-400); WHITE BLOOD COUNT 7.8 10^3/uL (4.3-11.0)
[2021-10-10 13:51] LABS: ALBUMIN 4.3 GM/DL (3.2-4.5)
[2021-10-10 13:52] LABS: CALCIUM 10.2 MG/DL (8.5-10.1)
[2021-10-10 13:54] LABS: TOTAL PROTEIN 6.8 GM/DL (6.4-8.2)
[2021-10-10 13:56] LABS: BILIRUBIN,TOTAL 0.6 MG/DL (0.1-1.0)
[2021-10-10 13:57] LABS: CREATININE SERUM 0.84 MG/DL (0.60-1.30)
== END ==
LOC: ONC 13:19
PROVIDERS: ATTEND Internal Medicine Hematology & Oncology
DX: D45 Polycythemia vera (principal); D50.9 Iron deficiency anemia, unspecified; E11.9 Type 2 diabetes mellitus without complications; I10 Essential (primary) hypertension; E66.01 Morbid (severe) obesity due to excess calories
CPT/HCPCS: 36415; 80053; 85025

== ENCOUNTER → 2022-01-09 | Outpatient (CLI) | payer MEDICARE ==
[2022-01-09 10:49] LABS: BASOPHILS # (AUTO) 0.1 10^3/uL (0.0-0.1); BASOPHILS % (AUTO) 1 % (0-10); EOSINOPHILS # (AUTO) 0.2 10^3/uL (0.0-0.3); EOSINOPHILS % (AUTO) 2 % (0-10); HEMATOCRIT 36 % (35-52); LYMPHOCYTES % (AUTO) 24 % (12-44); MEAN CORPUSCULAR HEMOGLOBIN 26 pg (25-34); MEAN CORPUSCULAR HGB CONC 31 g/dL (32-36); MEAN CORPUSCULAR VOLUME 86 fL (80-99); MEAN PLATELET VOLUME 10.5 fL (9.0-12.2); MONOCYTES # (AUTO) 0.7 10^3/uL (0.0-1.0); MONOCYTES % (AUTO) 8 % (0-12); NEUTROPHILS # (AUTO) 5.3 10^3/uL (1.8-7.8); NEUTROPHILS % (AUTO) 63 % (42-75); PLATELET COUNT 270 10^3/uL (130-400); WHITE BLOOD COUNT 8.4 10^3/uL (4.3-11.0)
[2022-01-09 11:07] LABS: ALBUMIN 4.1 GM/DL (3.2-4.5); BILIRUBIN,TOTAL 0.6 MG/DL (0.1-1.0); CALCIUM 9.5 MG/DL (8.5-10.1); CREATININE SERUM 0.88 MG/DL (0.60-1.30); POTASSIUM 4.7 MMOL/L (3.6-5.0); TOTAL PROTEIN 6.2 GM/DL (6.4-8.2)
== END ==
LOC: ONC 10:17
PROVIDERS: ATTEND Internal Medicine Hematology & Oncology
DX: D45 Polycythemia vera (principal); D50.9 Iron deficiency anemia, unspecified; E66.01 Morbid (severe) obesity due to excess calories; E11.9 Type 2 diabetes mellitus without complications; I25.10 Atherosclerotic heart disease of native coronary artery without angina pectoris; I10 Essential (primary) hypertension
CPT/HCPCS: 80053; 82728; 83540; 83550; 85025; G0463; 36415; 99213

== ENCOUNTER → 2022-02-14 | Outpatient (CLI) | payer MEDICARE ==
[~2022-02-14] MED LIST changes: +LOSA-419 PO; -LOSA1TAB3 PO
== END ==
LOC: ONC 10:50
PROVIDERS: ATTEND Internal Medicine Hematology & Oncology
DX: D45 Polycythemia vera (principal); D50.9 Iron deficiency anemia, unspecified; E66.01 Morbid (severe) obesity due to excess calories; E11.9 Type 2 diabetes mellitus without complications; I25.10 Atherosclerotic heart disease of native coronary artery without angina pectoris; I10 Essential (primary) hypertension
CPT/HCPCS: 82274; G0463; 99213

== ENCOUNTER 2022-02-20 09:13 | Outpatient (CLI) | payer MEDICARE ==
[~2022-02-20] VITALS: Ht 152.4 cm; Wt 98.9 kg
[2022-02-21] MEDS ORDERED: FAMO20TA5 PO (10:37)
[2022-02-21] MEDS ORDERED: RUXO10TA PO (10:39)
[2022-02-21] MEDS ORDERED: FAMO20TA3 PO (10:42)
== END 2022-02-21 11:56 | disposition home or self-care (01) ==
LOC: PREOP 09:13
PROVIDERS: ATTEND Surgery
DX: Z01.818 Encounter for other preprocedural examination (principal)

== ENCOUNTER 2022-03-04 07:11 | Day surgery (SDC) | payer MEDICARE ==
[~2022-03-04] VITALS: Ht 152.4 cm; Wt 98.9 kg
[~2022-03-04 07:11] MED LIST changes: +FAMO20TA3 PO; +FAMO20TA5 PO
[2022-03-04] MEDS ORDERED: LACTATED RINGERS 1,000 ML IV ONE (07:23)
[2022-03-04] MEDS ORDERED: PROPOFOL INJECTION 50 ML IV ONE (07:45)
[2022-03-04 07:55] VITALS: BP 144/76
[2022-03-04] MEDS ORDERED: LACTATED RINGERS 1,000 ML IV STA (08:12)
[2022-03-04] MEDS ORDERED: HURRICAINE EXT TUBE (BENZOCAINE) XX PRN (08:15)
--- NOTE | 2022-03-04 08:32 | Progress Note-Pre Operative ---
Pre-Operative Progress Note Date of Available H&P: Feb 19, 2022 Date H&P Reviewed: Mar 04, 2022 Time H&P Reviewed: 08:27 History & Physical: H&P Reviewed, Patient Examed, No changes noted Pre-Operative Diagnosis: Melena, Iron deficiency Anemia DAIANA CORONA DO Mar 04, 2022 08:32
[2022-03-04 10:00] VITALS: BP 182/75
--- NOTE | 2022-03-04 10:01 | Progress Note-Post Operative ---
Post-Operative Progess Note Surgeon (s)/Java Core Developer (s) Surgeon DAIANA CORONA DO Java Core Developer: Cici Aquino, MSIII Pre-Operative Diagnosis Melena, Iron deficiency Anemia Post-Operative Diagnosis Gastritis Small sliding Hiatal hernia Polyps Diverticula int hemorrhoids Procedure & Operative Findings Date of Procedure 03/04/22 Procedure Performed/Findings EGD with bx Colonoscopy with snare polypectomy PROCEDURE NOTE: After informed consent was obtained, the patient was brought to the endoscopy suite, placed in bed in left lateral decubitus position. She was administered IV sedation by the HEALTH EQUIPMENT SERVICER who then monitored vitals the entire time, heart rate, blood pressure and pulse ox and the scope was inserted down the mouth through the esophagus into the stomach. On the way down, noted some mild esophagitis, took a picture, pushed into the stomach, pushed past the antrum into the duodenum. Duodenum looked good. Pulled back and did a biopsy of antrum, then retroflexed the scope, saw a small sliding hiatal hernia, took a picture of this and then pulled the scope into the GE junction, took another picture of the hiatal hernia and then did a biopsy of the GE junction. Pushed the scope back into the stomach, suctioned all the air out of the stomach. At this point pulled the scope up the esophagus and out the mouth. Switched camera, switched gloves, went down below and started the colonoscopy. Pushed all the way into about 150 cm to get all the way to the cecum, took a picture of the appendiceal orifice, noted the ileocecal valve and then slowly withdrew the scope, insufflating to look circumferentially at the castillo. On the way in I noted diverticula on the left side and took a picture of them. Starting in the cecum, up the ascending colon where I found three polyps; removed with hot snare polyptectomy. Then to the hepatic flexure, down the transverse colon to the splenic flexure, into the descending colon. Here I found two more large polyps; one I had to remove in pieces and both done with hot snare. Continued down into the sigmoid and finally into the rectum, retroflexed in the rectal vault and saw some minimal internal hemorrhoids and took a picture of them. The patient tolerated the procedure and she recovered in the endoscopy suite. Recommended for repeat colonoscopy in 1 years Anesthesia Type IV sedation by HEALTH EQUIPMENT SERVICER Estimated Blood Loss Estimated blood loss (mL): scant Specimens/Packing Specimens Removed antral bx Body of stomach bx GE jxn bx Asc colon x3 polyps desc colon x 2 polyps DAIANA CORONA DO Mar 04, 2022 10:01
--- NOTE | 2022-03-04 10:02 | Endoscopy Discharge Instruct ---
Endo Procedure/Findings Findings 1.: Hiatal Hernia, Gastritis 2.: Polyp 3.: Diverticulosis 4.: Internal Hemorrhoids Discharge Instructions - Activity: You might feel a little sleepy until tomorrow. This is due to the medicine you received to relax you. Until tomorrow, you should: NOT drive a car, operate machinery or power tools. NOT drink any alcoholic beverages. NOT make any important decisions or sign importortant papers. Do not return to work until tomorrow, unless otherwise instructed. Resume previous activities tomorrow. Diet: Start by taking liquids. If you tolerate liquids, advance to solid food. 1.: EGD in 3 years 2.: Colonoscopy in 1 year Notify Physician - If you experience excessive bleeding, unusual abdominal pain, fever, or chest pain, contact your doctor immediately. DAIANA CORONA DO Mar 04, 2022 10:02
[2022-03-04 10:05] VITALS: BP 179/81
[2022-03-04 10:17] VITALS: BP 179/81
--- NOTE | 2022-03-04 11:18 | Anesthesia-General Post-Op ---
MAC Patient Condition Mental Status/LOC: Same as Preop Cardiovascular: Satisfactory Nausea/Vomiting: Absent Respiratory: Satisfactory Pain: Controlled Complications: Absent Post Op Complications Complications None Follow Up Care/Instructions Patient Instructions None needed. Anesthesiology Discharge Order Discharge Order Patient is doing well, no complaints, stable vital signs, no apparent adverse anesthesia problems. No complications reported per nursing. JASSI WELLS CRNA Mar 04, 2022 11:18
== END 2022-03-04 10:38 | disposition home or self-care (01) ==
LOC: ENDO 07:11
PROVIDERS: ATTEND Surgery
DX: D12.2 Benign neoplasm of ascending colon (principal); D12.4 Benign neoplasm of descending colon; K51.40 Inflammatory polyps of colon without complications; K29.71 Gastritis, unspecified, with bleeding; K57.31 Diverticulosis of large intestine without perforation or abscess with bleeding; K64.8 Other hemorrhoids; K20.90 Esophagitis, unspecified without bleeding; K44.9 Diaphragmatic hernia without obstruction or gangrene; K31.89 Other diseases of stomach and duodenum; D50.9 Iron deficiency anemia, unspecified; E66.9 Obesity, unspecified; Z68.41 Body mass index [BMI] 40.0-44.9, adult; E66.01 Morbid (severe) obesity due to excess calories; E11.9 Type 2 diabetes mellitus without complications; Z87.891 Personal history of nicotine dependence; Z79.4 Long term (current) use of insulin; Z79.84 Long term (current) use of oral hypoglycemic drugs; Z95.5 Presence of coronary angioplasty implant and graft
CPT/HCPCS: 82947

== ENCOUNTER → 2022-03-21 | Outpatient (CLI) | payer MEDICARE | LOC: ONC 13:46 | PROVIDERS: ATTEND Internal Medicine Hematology & Oncology | DX: D45 Polycythemia vera (principal); D50.9 Iron deficiency anemia, unspecified; E66.01 Morbid (severe) obesity due to excess calories; E11.9 Type 2 diabetes mellitus without complications; I25.10 Atherosclerotic heart disease of native coronary artery without angina pectoris; I10 Essential (primary) hypertension; R94.5 Abnormal results of liver function studies | CPT/HCPCS: 99213 ==

== ENCOUNTER → 2022-05-06 | Outpatient (CLI) | payer MEDICARE ==
[~2022-05-06] VITALS: Ht 152 cm; Wt 113.0 kg
[~2022-05-06] MED LIST changes: +CATHETER FLUSH 10 ML SYR IVP PRN; +REGADENOSON 0.4 MG/5 ML SYR (LEXISCAN) IV ONE
[2022-05-06 09:16] VITALS: BP 164/103
--- NOTE | 2022-05-06 11:10 | Cardiology Stress Test Report ---
Stress Test Report Date of Procedure/Referring: Date of Procedure: May 06, 2022 PCP Netta Lyon MD Admitting Physician Admitting Physician: Attending Physician: Phillip Busch MD Baseline Heart Rate: 88 Baseline Blood Pressure: Blood Pressure Systolic: 164 Blood Pressure Diastolic: 103 Baseline Vitals Vital Signs Date Time Temp Pulse Resp B/P (MAP) Pulse Ox O2 Delivery O2 Flow Rate FiO2 05/06/22 09:16 88 164/103 (123) Baseline EKG: Baseline EKG: NSR Summary After explaining the procedure to the patient, she signed a consent and then brought to the stress nuclear laboratory. Patient received 0.4 mg Lexiscan for stress test, ECG, heart rate and blood pressure were monitored continuously. Resting and stress dose of radio tracer were injected, imaging was acquired and reviewed in short axis, horizontal long axis and vertical long axis views. TID: 1.05 SSS: 25 SDS: 5 EF: 45 1. Patient tolerated Lexiscan well 2. Baseline hypertension persisted during test 3. Breast attenuation with total infarction of the anterior apical segment and apex and inferoapical area with small area of eric-infarct ischemia 4. Normal left ventricular size, akinesia of the apex, anterior apex and inferoapex, ejection fraction 45% Copy Copies To 1: NETTA LYON MD, BASHAR J MD May 06, 2022 11:10
== END ==
LOC: CARD 07:45
PROVIDERS: ATTEND Internal Medicine Cardiovascular Disease
DX: I21.29 ST elevation (STEMI) myocardial infarction involving other sites (principal); I25.89 Other forms of chronic ischemic heart disease; I10 Essential (primary) hypertension; N64.89 Other specified disorders of breast
CPT/HCPCS: 78452; 93017; A9502

== ENCOUNTER 2022-05-22 11:00 | Day surgery (SDC) | payer MEDICARE ==
[~2022-05-22] VITALS: Ht 152 cm; Wt 98.2 kg
[~2022-05-22 11:00] MED LIST changes: -CATHETER FLUSH 10 ML SYR IVP PRN; -REGADENOSON 0.4 MG/5 ML SYR (LEXISCAN) IV ONE
[2022-05-22] MEDS ORDERED: LIDOCAINE 1% INJ 30 ML (XYLOCAINE) VIAL ONE (11:22)
[2022-05-22] MEDS ORDERED: HEParin (CATH LAB) 2,000 ML IV ONE (11:22)
[2022-05-22] MEDS ORDERED: NS IV 1000 ML 1,000 ML ONE (11:22)
[2022-05-22] MEDS ORDERED: NS IV 1000 ML 1,000 ML IV ONE (11:30)
[2022-05-22 11:53] VITALS: BP 198/98
[2022-05-22 12:05] LABS: HEMATOCRIT 38 % (35-52); HEMOGLOBIN 11.7 g/dL (11.5-16.0); MEAN CORPUSCULAR HEMOGLOBIN 26 pg (25-34); MEAN CORPUSCULAR HGB CONC 31 g/dL (32-36); MEAN CORPUSCULAR VOLUME 84 fL (80-99); MEAN PLATELET VOLUME 10.4 fL (9.0-12.2); PLATELET COUNT 263 10^3/uL (130-400); WHITE BLOOD COUNT 8.9 10^3/uL (4.3-11.0)
[2022-05-22] MEDS ORDERED: INSU100V6 SQ ×2 (12:12)
--- NOTE | 2022-05-22 12:15 | Diagnostic Imaging Report ---
EXAMINATION: Chest 1 view HISTORY: ABNORMAL STRESS TEST COMPARISON: 03/07/2021 FINDINGS: Heart size and pulmonary vasculature are normal. There are low lung volumes without consolidation, pleural effusion, or pneumothorax. The osseous structures are intact. IMPRESSION: 1. No acute radiographic abnormality in the chest. Dictated by: Dictated on workstation # [id number]
[2022-05-22 12:22] LABS: PROTHROMBIN TIME PATIENT 13.7 SEC (12.2-14.7)
[2022-05-22 12:32] LABS: ALBUMIN 4.3 GM/DL (3.2-4.5); BILIRUBIN,TOTAL 0.6 MG/DL (0.1-1.0); CALCIUM 9.3 MG/DL (8.5-10.1); CREATININE SERUM 0.84 MG/DL (0.60-1.30); POTASSIUM 3.9 MMOL/L (3.6-5.0)
[2022-05-22] MEDS ORDERED: VERAPAMIL 5 MG/2 ML (CALAN) VIAL IV ONE (14:23)
[2022-05-22] MEDS ORDERED: fentaNYL INJ 100 MCG/2 ML AMP ONE (14:23)
--- NOTE | 2022-05-22 14:23 | Cardiac Procedure Note-CS/ASA ---
Pre-Procedure Note Pre-Op Procedure Note Date of Available H&P: May 07, 2022 Date H&P Reviewed: May 22, 2022 Time H&P Reviewed: 14:23 History & Physical: H&P Reviewed, Patient Examed, No changes noted Pre-Operative Diagnosis: CAD Conscious Sedation Pre-Proced Time 14:23 ASA Score 3 For ASA 3 and 4: Consider anesthesia and medical clearance. Also, for patients with a history of failed moderate sedation consider anesthesia. Airway Lungs Heart ASA score ASA 1: a normal healthy patient ASA 2: a patient with a mild systemic disease (mid diabetes, controlled hypertension, obesity ASA 3: a patient with a severe systemic disease that limits activity (angina, COPD, prior Myocardial infarction) ASA 4: a patient with an incapacitating disease that is a constant threat to life (CHF, renal failure) ASA 5: a moribund patient not expected to survive 24 hrs. (ruptured aneurysm) ASA 6: a declared brain- patient whose organs are being harvested. For emergent operations, add the letter E after the classification Mallampati Classification Grade 3 Sedation Plan Analgesia, Amnesia, Plan communicated to team members, Discussed options with patient/fam, Discussed risks with patient/fam The patient is an appropriate candidate to undergo the planned procedure, sedation, and anesthesia. The patient immediately re-assessed prior to indication. MAXWELL ECHEVERRIA MD May 22, 2022 14:23
[2022-05-22] MEDS ORDERED: HEParin 1000 UNIT/ML (10ML VIAL) FOR BOLUS ONE (14:24)
[2022-05-22] MEDS ORDERED: MIDAZOLAM 5 MG/5 ML (VERSED) VIAL ONE (14:24)
[2022-05-22] MEDS ORDERED: NITRO DRIP 25000 MCG/D5W 250 ML IV ONE ×2 (14:24→16:01)
[2022-05-22] MEDS ORDERED: meTOprolol 5 MG/5 ML (LOPRESSOR) VIAL ONE ×3 (14:59→15:53)
[2022-05-22] MEDS ORDERED: ASPIRIN 325 MG (5 GR) TABLET ONE (15:42)
[2022-05-22] MEDS ORDERED: CLOPIDOGREL 300 MG (PLAVIX) TABLET PO ONE (15:42)
[2022-05-22] MEDS ORDERED: PATIENT MAY USE OWN MEDS, ALL PO SCH (15:45)
--- NOTE | 2022-05-22 15:53 | Cardiac Cath Report ---
Cardiac Cath Report Physician (s)/Mud Mixer Operator (s) Physician MAXWELL ECHEVERRIA MD Pre-Procedure Diagnosis Pre-Procedure Diagnosis: CAD Post-Procedure Note Procedure Start Date: May 22, 2022 Procedure Start Time: 15:48 Name of Procedure: Left heart catheterization Stenting to the LAD Findings/Procedure Note PROCEDURE NOTE: 71-year-old lady with history of coronary artery disease, multiple intervention, had an abnormal stress test, scheduled for cardiac catheterization possible PTCA. After explaining the procedure to the patient, all pros and cons were explained, all questions were answered. The patient signed the consent and then she was placed in the cardiac catheterization laboratory. Groin was prepped in SL fashion local anesthesia was used. Sheath placed in the right radial artery, I was unable to advance the catheter due to significant spasm in the radial and brachial artery. I remove the catheter and proceeded with femoral approach, 6 English sheath was placed in the femoral artery, combination of right and left Ryan catheter were used to access right and left coronary system. Pigtail catheter advanced to the left ventricular cavity, pressure was measured, pullback LV to aorta was done. Patient has 95% stenosis at the mid LAD distantly portion of the stent, the proximal portion also has 90% stenosis. Balloon angioplasty was done to the whole segment then stenting to the distal portion with full resolution of the lesion, 0% residual stenosis with DANISH-3 flow postintervention. The proximal portion has 40 to 50% residual stenosis. At the end of the procedure the sheath was removed. Closure device was deployed FINDINGS: Hemodynamics LV 173/25, end-diastolic pressure of 25 Aorta 191/95 mean of 136 ANATOMY: Left Main is free of obstructive disease Left Anterior Descending has proximal and mid LAD stent. In-stent restenosis up to 90% stenosis. Distal portion of the stent then within the LAD itself there is a 95% stenosis, successful balloon angioplasty and stenting distally using 2.5 x 18 mm leona point stent expanded to 2.7 mm with excellent results. The overlap area was stretched to 3 mm and the whole proximal and mid stent had noncompliant balloon 3 x 12 mm with multiple inflation with significant improvement there is 1 area of 40 to 50% stenosis proximally. May require laser atherectomy at a later point Left Circumflex is moderate in size with 20 to 30% stenosis nonobstructive disease Right Coronary Artery is dominant artery with 20 to 30% stenosis nonobstructive disease LV Gram was not done, pressure was measured PERCUTANEOUS INTERVENTION: Pre stenosis 95% Post Stenosis 0% Pre DANISH flow 2 Post DANISH flow 3 Dominance right coronary artery CONCLUSION: 1. 95% stenosis at the mid to distal LAD, successful balloon angioplasty and stenting using 2.5 x 18 mm leona point stent overlapping with the previously placed stent with excellent results and no residual stenosis 2. 90% in-stent restenosis in the proximal and mid LAD with successful balloon angioplasty with 40 to 50% residual stenosis, noncompliant 3.0 balloon was used under 18 joanna. Patient would benefit from laser atherectomy at a later point 3. Otherwise nonobstructive disease in the coronary system 4. Severe hypertension difficult to control. Requiring multiple medication DISCUSSION AND RECOMMENDATION: Continue to maximize medical therapy Anesthesia Type: Conscious Sedation Estimated blood loss (mL): 25 ml Contrast Amount: 150 ml Total Radiation Dose: 1557 mGy Post-Procedure Diagnosis Post-operative diagnosis: Chest pain Coronary artery disease Hypertension Hyperlipidemia. MAXWELL ECHEVERRIA MD May 22, 2022 15:53
[2022-05-22] MEDS ORDERED: NON-FORMULARY MEDICATION 1 EA EA (Hydrochlorothiazide 12.5 MG) PO PRN (16:00)
[2022-05-22] MEDS ORDERED: LOSARTAN 50 MG (COZAAR) TAB PO PRN ×2 (16:00→18:15)
[2022-05-22] MEDS ORDERED: NON-FORMULARY MEDICATION 1 EA EA (Isosorbide Mononitrate (Isosorbide Mononitrate ER) 120 M PO SCH (16:00)
[2022-05-22] MEDS ORDERED: cloNIDine 0.1 MG (CATAPRES) TAB ONE (16:31)
[2022-05-22] MEDS ORDERED: HydroCHLOROthiazide CAP/TABLET 12.5 MG TAB PO PRN ×2 (17:15→18:15)
[2022-05-22 17:23] VITALS: BP 147/90
[2022-05-22] MEDS ORDERED: PATIENT MAY USE OWN MEDS, ALL MC SCH (17:30)
[2022-05-22] MEDS: NITRO DRIP 25000 MCG/D5W 250 ML IV SCH ×2 (18:21→19:30)
[2022-05-22] MEDS: NS IV 1000 ML 1,000 ML IV SCH (18:21)
[2022-05-22] MEDS ORDERED: MONTELUKAST 10 MG (SINGULAIR) TAB PO SCH (21:00)
[2022-05-22] MEDS ORDERED: NON-FORMULARY MEDICATION 1 EA EA (Ropinirole HCl 1 MG) PO SCH (21:00)
[2022-05-22] MEDS ORDERED: rOPINIRole 1 MG (REQUIP) TABLET PO SCH (21:00)
[2022-05-22] MEDS ORDERED: LANTUS 100 UNIT/ML SQ SCH (21:00)
[2022-05-22] MEDS ORDERED: ROPINIROLE 0.5 MG TABLET PO SCH (21:00)
[2022-05-22] MEDS ORDERED: INSULIN GLARGINE HUM REC ANLOG 45 UNIT SQ SCH (21:00)
[2022-05-22] MEDS ORDERED: MELATONIN 1 MG TAB PO SCH (21:00)
[2022-05-22] MEDS ORDERED: FLUTICASONE NASAL SPRAY (FLONASE) 16 GM BTL NS SCH (21:00)
[2022-05-22] MEDS ORDERED: NON-FORMULARY MEDICATION 1 EA EA (Calcium Carbonate/Vitamin D3 (Calcium + Vitamin D Tablet PO SCH (21:00)
[2022-05-22] MEDS: OMEGA 3 (FISH OIL) 1000 MG CAP PO SCH (21:37)
[2022-05-22] MEDS: GABAPENTIN 300 MG (NEURONTIN) CAP PO SCH (21:38)
[2022-05-22] MEDS: FAMOTIDINE 20 MG (PEPCID) TABLET PO SCH (21:39)
[2022-05-23] MEDS: NS IV 1000 ML 1,000 ML IV SCH (02:46)
[2022-05-23] MEDS: NITRO DRIP 25000 MCG/D5W 250 ML IV SCH (05:05)
[2022-05-23 05:10] LABS: HEMATOCRIT 32 % (35-52); HEMOGLOBIN 9.6 g/dL (11.5-16.0); MEAN CORPUSCULAR HEMOGLOBIN 26 pg (25-34); MEAN CORPUSCULAR HGB CONC 30 g/dL (32-36); MEAN CORPUSCULAR VOLUME 84 fL (80-99); PLATELET COUNT 228 10^3/uL (130-400); WHITE BLOOD COUNT 9.2 10^3/uL (4.3-11.0)
[2022-05-23 05:31] LABS: CALCIUM 8.5 MG/DL (8.5-10.1); CREATININE SERUM 0.79 MG/DL (0.60-1.30); POTASSIUM 3.9 MMOL/L (3.6-5.0)
[2022-05-23] MEDS ORDERED: CALCIUM CARB + VIT D 600 MG (CALCARB + D) TAB PO SCH (07:00)
[2022-05-23] MEDS ORDERED: MULTIVIT W/MINERALS TAB (THERAGRAN M) PO SCH (07:00)
[2022-05-23] MEDS: GABAPENTIN 300 MG (NEURONTIN) CAP PO SCH (08:26)
[2022-05-23] MEDS: FAMOTIDINE 20 MG (PEPCID) TABLET PO SCH (08:29)
[2022-05-23] MEDS: OMEGA 3 (FISH OIL) 1000 MG CAP PO SCH (08:33)
[2022-05-23] MEDS ORDERED: LORATADINE (CLARITIN) 10 MG TAB PO SCH (09:00)
[2022-05-23] MEDS ORDERED: NON-FORMULARY MEDICATION 1 EA EA (Isosorbide Mononitrate (Isosorbide Mononitrate ER) 120 M PO SCH (09:00)
[2022-05-23] MEDS ORDERED: NON-FORMULARY MEDICATION 1 EA EA (Mv-Mn/Folic Acid/Calcium/Vit K (Women's 50 Plus Multivit PO SCH (09:00)
[2022-05-23] MEDS ORDERED: ASPIRIN E.C. 81 MG (ECOTRIN) TAB PO SCH (09:00)
[2022-05-23] MEDS ORDERED: ISOSORBIDE MONONITRATE 60 MG (IMDUR) TAB PO SCH (09:00)
[2022-05-23] MEDS ORDERED: SEMAGLUTIDE 3 MG PO SCH (09:00)
[2022-05-23] MEDS ORDERED: NON-FORMULARY MEDICATION 1 EA EA (Insulin Glargine,Hum.rec.anlog (Lantus) 20 UNIT) SQ SCH (09:00)
[2022-05-23] MEDS ORDERED: CLOPIDOGREL 75 MG (PLAVIX) TABLET PO SCH (09:00)
[2022-05-23] MEDS ORDERED: JAKAFI 10 MG PO SCH (09:00)
[2022-05-23] MEDS ORDERED: ISOSORBIDE MONONITRATE 120 MG PO SCH (09:00)
[2022-05-23] MEDS ORDERED: LANTUS 100 UNIT/ML SQ SCH (09:00)
[2022-05-23] MEDS ORDERED: CLOP75TA28 PO (10:47)
[2022-05-23] MEDS ORDERED: METF-399 PO (10:47)
--- NOTE | 2022-05-23 10:48 | Discharge Inst-Post CATH ---
Discharge Inst-CATH/EP Problems Reviewed?: Yes Post Cardiac Cath/EP D/C Inst Follow Up/Plan Hold metformin for [address] Busch's office in 1 to 2 weeks <b>CARDIAC CATH/EP PROCEDURE DISCHARGE INSTRUCTIONS</b> ACTIVITY * Go Home directly and rest. * Limit activity of the leg (or wrist if it was used) for 7 days including aerobics, swimming, jogging, bicycling, etc. * Restrict stair-climbing for 7 days if possible, if not, climb up with your non-cath leg, then bring together on the same step. * Avoid lifting, pushing, pulling or excessive movement of the affected extremity for 7 days. * Customary sexual activity may be resumed after 2 days-use caution not to use a position that strains or causes pain to the affected extremity. * No driving for 24 hours. * NO SMOKING. * Avoid straining for bowel movements for 7 days. * Gentle walking on level ground is allowed. * Returning to work will depend on the type of procedure and the results. Your doctor will discuss this with you. CALL YOUR DOCTOR FOR ANY OF THE FOLLOWING: *If bleeding from the puncture site occurs- Apply gentle pressure to site with clean cloth and call your doctor or EMS. * If a knot or lump forms under the skin, increases in size, or causes pain. * If bruising appears to be worsening or moving further down your leg instead of disappearing. * Temperature above 101 F. CARE OF YOUR GROIN INCISION; * Bruising or purple discoloration of the skin near the puncture site is common. * You may shower only, no bathtub bathing for 5 days. Be careful to avoid slipping as your leg may feel stiff. * If a closure device was used on your femoral artery, please see the attached guide regarding care of the device and your leg. * Leave dressing on FOR 24 hours. CARE OF YOUR WRIST INCISION; * Bruising or purple discoloration of the skin near the puncture site is common. * You may shower. * DO NOT submerge wrist. * Leave dressing on FOR 24 hours. MAXWELL BUSCH MD May 23, 2022 10:47
--- NOTE | 2022-05-23 10:50 | Cardiology Progress Note ---
Subjective Date Seen by Provider: May 23, 2022 Time Seen by Provider: 10:48 Subjective/Events-last exam Patient was seen at bedside, laying down comfortably, feeling better. No new complaint Review of Systems General: No Chills, No Night Sweats, No Fatigue, No Malaise, No Appetite, No Other HEENT: No Head Aches, No Visual Changes, No Eye Pain, No Ear Pain, No Dyspha thalia, No Sinus Congestion, No Post Nasal Drip, No Sore Throat, No Other Pulmonary: No Dyspnea, No Cough, No Pleuritic Chest Pain, No Other Cardiovascular: No: Chest Pain, Palpitations, Orthopnea, Paroxysmal Noc. Dyspnea, Edema, Lt Headedness, Other Objective-Cardiology Exam Last Set of Vital Signs Vital Signs 05/23/22 10:00 Pulse 58 Resp 27 B/P (MAP) 139/75 (96) Pulse Ox 93 O2 Delivery Nasal Cannula O2 Flow Rate 2.00 I&O Intake and Output 05/23/22 00:00 Intake Total 530 ml Output Total 300 ml Balance 230 ml Intake Oral 530 ml Output Urine Total 300 ml # Urine Diapers 1 Daily Weight Change No General: Alert, Oriented X3, Cooperative HEENT: Atraumatic, PERRLA Neck: Supple, No JVD, No Thyromegaly Lungs: Clear to Auscultation, Normal Air Movement Heart: Regular Rate, Normal S1, Normal S2, No Murmurs Abdomen: Normal Bowel Sounds, Soft, No Tenderness, No Hepatosplenomegaly, No Masses Extremities: No Clubbing, No Cyanosis, No Edema, Normal Pulses, No Tenderness/Swelling Skin: No Rashes, No Breakdown, No Significant Lesion Neuro: Normal Gait, Normal Speech, Strength at 5/5 X4 Ext, Normal Tone, Sensation Intact Psych/Mental Status: Mental Status NL, Mood NL Results Lab Laboratory Tests 05/22/22 11:57 05/23/22 04:47 A/P-Cardiology Admission Diagnosis Coronary artery disease Malignant hypertension Hyperlipidemia Obesity Assessment/Plan Coronary artery disease. Cardiac catheterization done on May 22, 2022 with 95% stenosis at the mid and distal LAD with successful balloon angioplasty and stenting distally using 2.5 x 18 mm [place]ona point stent overlapping with the previously placed stent and balloon angioplasty for in-stent restenosis using noncompliant 3.0 balloon with multiple inflation up to 18 joanna with 40 to 50% residual stenosis. Otherwise nonobstructive coronary artery disease Patient might require laser atherectomy for in-stent restenosis at a later point Malignant hypertension, receiving multiple medication, she was started on nitroglycerin drip Blood pressure is better at this time. Continue to monitor as an outpatient Hyperlipidemia, monitor lipids Obesity, BMI 42, we discussed weight loss MAXWELL ECHEVERRIA MD May 23, 2022 10:50
[2022-05-23 11:43] VITALS: BP 126/86
== END 2022-05-23 11:35 | disposition home or self-care (01) ==
LOC: CATH 11:00 → ICU 16:50 → CATH 05-23 11:35
PROVIDERS: ATTEND Internal Medicine Cardiovascular Disease
DX: I25.10 Atherosclerotic heart disease of native coronary artery without angina pectoris (principal); T82.855A Stenosis of coronary artery stent, initial encounter; I10 Essential (primary) hypertension; E66.01 Morbid (severe) obesity due to excess calories; I65.23 Occlusion and stenosis of bilateral carotid arteries; E78.2 Mixed hyperlipidemia; E11.40 Type 2 diabetes mellitus with diabetic neuropathy, unspecified; J44.9 Chronic obstructive pulmonary disease, unspecified; M19.90 Unspecified osteoarthritis, unspecified site; Z79.4 Long term (current) use of insulin; Z79.84 Long term (current) use of oral hypoglycemic drugs; Z79.82 Long term (current) use of aspirin; Y71.1 Therapeutic (nonsurgical) and rehabilitative cardiovascular devices associated with adverse incidents; Z68.41 Body mass index [BMI] 40.0-44.9, adult; Z87.891 Personal history of nicotine dependence; Z28.310 Unvaccinated for COVID-19
CPT/HCPCS: 36140; 71045; 80048; 80053; 80061; 82947 ×2; 85027 ×2; 85347; 85610; 85730; 87081; 93005 ×2; 93458; C1725 ×2; C1760; C1769 ×2; C1874; C1887; C1894 ×2; C9600; 36415

== ENCOUNTER → 2022-07-03 | Outpatient (CLI) | payer MEDICARE | LOC: ONC 13:50 | PROVIDERS: ATTEND Internal Medicine Hematology & Oncology | DX: D45 Polycythemia vera (principal); D50.9 Iron deficiency anemia, unspecified; I10 Essential (primary) hypertension; E11.9 Type 2 diabetes mellitus without complications; R09.02 Hypoxemia ==

== ENCOUNTER → 2022-09-25 | Outpatient (CLI) | payer MEDICARE | LOC: ONC 13:51 | PROVIDERS: ATTEND Internal Medicine Hematology & Oncology | DX: D45 Polycythemia vera (principal); D50.9 Iron deficiency anemia, unspecified; E11.9 Type 2 diabetes mellitus without complications; E66.01 Morbid (severe) obesity due to excess calories ==

== ENCOUNTER → 2022-12-19 | Outpatient (CLI) | payer MEDICARE | END | disposition home or self-care (01) | LOC: ONC 11:12 | PROVIDERS: ATTEND Internal Medicine Hematology & Oncology | DX: D45 Polycythemia vera (principal) | CPT/HCPCS: 99214 ==

== ENCOUNTER → 2023-03-13 | Outpatient (CLI) | payer MEDICARE ==
[~2023-03-13] MED LIST changes: +FAMO-356 PO; -FAMO20TA3 PO; +ROPI0.5T37 PO; -ROPI0.5T4 PO
== END ==
LOC: ONC 12:52
PROVIDERS: ATTEND Internal Medicine Hematology & Oncology
DX: D45 Polycythemia vera (principal); D50.9 Iron deficiency anemia, unspecified; E11.9 Type 2 diabetes mellitus without complications; E66.01 Morbid (severe) obesity due to excess calories; I10 Essential (primary) hypertension; I25.10 Atherosclerotic heart disease of native coronary artery without angina pectoris
CPT/HCPCS: 99214